=== PATIENT | female | born 1950 | race Caucasian/White ===

== ENCOUNTER → 2020-06-10 09:58 | Outpatient (CLI) | payer MEDICARE, BC, SELFPAY ==
--- NOTE | 2020-06-10 10:10 | MRI_ITS ---
STUDY: MRI BRAIN WITH AND WITHOUT CONTRAST (ATTENTION INTERNAL AUDITORY CANALS - I.A.C.''s) REASON FOR EXAM: Female, 69 years old. tinnitus, left hearing loss x 8 months TECHNIQUE: Standardized multiplanar fat and water weighted pulse sequences were obtained. IV dotarem 15ml was administered for the contrast portion of the examination. COMPARISON: None. FINDINGS: Normal bilateral temporal bones. Normal bilateral internal auditory canals. There is no demonstrated intracanalicular or cisternal vestibular schwannoma (acoustic neuroma). There is no enhancement of the bilateral VIIth or VIIIth cranial nerves. Normal bilateral cochlea, vestibules and semicircular canals. Normal size of the ventricles and extra-axial spaces for the patient''s age. Normal white matter tracts of the supratentorial brain. There is no evidence for recent intracranial ischemia or other cause of cytotoxic edema on diffusion weighted imaging (DWI). Normal bilateral basal ganglia. Normal thalami. Normal flow voids within the major intracranial circulation suggesting patency by spin echo criteria. Normal venous enhancement. There is no enhancing intra-axial or extra-axial abnormality. There is no extra-axial fluid accumulation. Normal sella turcica, pituitary gland, infundibular stalk, optic chiasm and hypothalamus. Normal tectal plate and pineal gland. Normal midbrain, kassandra and medulla. Normal cerebellum. Normal basal cisterns. No demonstrated orbital abnormality, within the constraints of a routine brain study. Normal visualized paranasal sinuses. Normal calvarium and skull base. Normal visualized soft tissue structures. Normal visualized upper cervical spine. MRI/Brain W/WO Contrast IMPRESSION: Normal unenhanced and enhanced MRI of the bilateral internal auditory canals (I.A.C''s). Electronically Signed: Meir Maldonado MD at 12:54 EST Tel , Service support ,
[2020-06-10 10:51] LABS: CREATININE FINGERSTICK 0.8 mg/dL (0.55-1.02); EGFR FINGERSTICK > 60.0000 mL/min (>60)
== END ==
PROVIDERS: PCP Family Medicine; Referring Provider Otolaryngology; Visit Provider Otolaryngology
DX: H93.12 Tinnitus, left ear (principal); H91.92 Unspecified hearing loss, left ear
CPT/HCPCS: 70553; A9575

== ENCOUNTER → 2020-09-14 12:52 | Outpatient (CLI) | payer MEDICARE, BC, SELFPAY ==
--- NOTE | 2020-09-14 13:06 | MRI_ITS ---
STUDY: MR MRCP WITHOUT CONTRAST REASON FOR EXAM: Female, 70 years old. DILATION OF COMMON BILE DUCT TECHNIQUE: Standard MRCP technique was utilized. 3-D postprocess images were created. COMPARISON: CT dated 04/14/11 FINDINGS: The study is significantly limited by patient motion. Gall Bladder: Status post cholecystectomy. Cystic duct: Normal caliber. No ductal stones identified. Intrahepatic ducts: Normal caliber. No ductal stones identified. Common hepatic duct: Normal caliber. No ductal stones identified. Common bile duct: Dilated, measuring up to 1 cm. No ductal stones are identified. Pancreatic duct: Normal caliber. No ductal stones identified. The liver is nodular in contour, suggesting cirrhosis. MRI/MRCP Abdomen without Contrast IMPRESSION: Study significantly limited by patient motion. Status post cholecystectomy. Dilated common bile duct, measuring up to 1 cm. No ductal stones identified. This can be within normal limits following a cholecystectomy. Nodular liver, suggesting cirrhosis. Electronically Signed: Shyam Patel MD at 16:33 EDT Tel , Service support ,
== END ==
PROVIDERS: PCP Family Medicine; Referring Provider Family Medicine; Visit Provider Family Medicine
DX: K83.8 Other specified diseases of biliary tract (principal)
CPT/HCPCS: 74181

== ENCOUNTER → 2020-09-29 16:18 | Outpatient (CLI) | payer MEDICARE, BC, SELFPAY ==
[2014-03-31 11:05] VITALS: BMI 29.4
[2020-09-29 17:45] LABS: International Normalized Ratio 1.4; Prothrombin Time (Protime)PT. 16.2 SECONDS (11.7-14.9)
[2020-10-01 16:28] LABS: ANTINUCLEAR ANTIBODIES DIRECT Negative (Negative)
[2020-10-01 20:08] LABS: HEPATITIS B SURFACE AG Negative (Negative); Hepatitis B Core AB IgM Negative (Negative); Hepatitis B Core Ab Total Negative (Negative); Hepatitis Be Ab Negative (Negative); Hepatitis Be Ag Negative (Negative); Hepatitis C Ab 0.3 s/co ratio (0.0-0.9)
[2020-10-01 22:40] LABS: AFP, Tumor Marker 3.7 ng/mL (0.0-8.3); Anti-Smooth Muscle ABS 21 Units (0-19); Ceruloplasmin 27.5 mg/dL (19.0-39.0); Hep B Surface Antibodies Non Reactive (.)
== END ==
PROVIDERS: PCP Family Medicine; Referring Provider Internal Medicine Gastroenterology; Visit Provider Internal Medicine Gastroenterology
DX: K74.60 Unspecified cirrhosis of liver (principal)
CPT/HCPCS: 36415; 82105; 82390; 83516; 85610; 85730; 86038; 86704; 86705; 86706; 86707; 86803; 87340; 87350

== ENCOUNTER → 2020-10-19 12:59 | Outpatient (CLI) | payer MEDICARE, BC, SELFPAY | PROVIDERS: PCP Family Medicine; Referring Provider Internal Medicine Gastroenterology; Visit Provider Internal Medicine Gastroenterology | DX: Z11.59 Encounter for screening for other viral diseases (principal) | CPT/HCPCS: 87635; C9803; U0005; U0003 ==

== ENCOUNTER → 2020-12-29 14:23 | Outpatient (CLI) | payer MEDICARE, BC, SELFPAY ==
[2020-12-29 18:06] LABS: International Normalized Ratio 1.4; Prothrombin Time (Protime)PT. 16.3 SECONDS (11.7-14.9)
[2020-12-29 18:13] LABS: ALB/GLOB Ratio 0.7 RATIO (0.9-2.4); AST(SGOT) 43 U/L (15-37); Alanine Aminotransfer ALT/SGPT 34 U/L (13-56); Albumin, Serum 3.1 g/dL (3.2-5.0); Alkaline Phosphatase 97 U/L (45-117); Anion Gap 6 (5-15); BUN 21 mg/dL (7-18); BUN/Creat Ratio 27.9 RATIO (10-20); Calcium,Total 9.5 mg/dL (8.5-10.1); Chloride 108 mmol/L (98-107); Creatinine, Serum 0.75 mg/dL (0.55-1.02); EST Glomerular Filtration Rate 81 mL/min (>60); Est Glom Filt Rate - Afr Amer 98 mL/min (>60); Globulin 4.6 g/dL (2.2-4.2); Glucose 147 mg/dL (74-106); Potassium 3.8 mmol/L (3.5-5.1); Protein, Total 7.7 g/dL (6.4-8.2); Sodium Level 138 mmol/L (136-145)
[2020-12-31 17:54] LABS: AFP, Tumor Marker 3.4 ng/mL (0.0-8.3); Anti-Smooth Muscle ABS 21 Units (0-19)
== END ==
PROVIDERS: PCP Family Medicine; Referring Provider Internal Medicine Gastroenterology; Visit Provider Internal Medicine Gastroenterology
DX: K74.60 Unspecified cirrhosis of liver (principal); K75.9 Inflammatory liver disease, unspecified
CPT/HCPCS: 36415; 80053; 82105; 83516; 85610

== ENCOUNTER → 2021-04-13 14:18 | Outpatient (CLI) | payer MEDICARE, BC, SELFPAY ==
[2021-04-13 18:07] LABS: ALB/GLOB Ratio 0.6 RATIO (0.9-2.4); AST(SGOT) 45 U/L (15-37); Alanine Aminotransfer ALT/SGPT 36 U/L (13-56); Alkaline Phosphatase 84 U/L (45-117); Anion Gap 8 (5-15); BUN 18 mg/dL (7-18); BUN/Creat Ratio 21.9 RATIO (10-20); Chloride 105 mmol/L (98-107); Creatinine, Serum 0.82 mg/dL (0.55-1.02); EST Glomerular Filtration Rate 73 mL/min (>60); Est Glom Filt Rate - Afr Amer 89 mL/min (>60); Globulin 4.7 g/dL (2.2-4.2); Glucose 141 mg/dL (74-106); Potassium 4.5 mmol/L (3.5-5.1); Protein, Total 7.7 g/dL (6.4-8.2); Sodium Level 136 mmol/L (136-145)
[2021-04-15 15:08] LABS: Albumin 3.2 g/dL (2.9-4.4); Alpha-1-Globulins 0.2 g/dL (0.0-0.4); Alpha-2-Globulins 0.6 g/dL (0.4-1.0); Gamma Globulin 1.8 g/dL (0.4-1.8); Immunoglobulin A 783 mg/dL (87-352); Immunoglobulin G 1738 mg/dL (586-1602); Immunoglobulin M 135 mg/dL (26-217); PROEL- TOTAL PROTEIN 7.1 g/dL (6.0-8.5)
[2021-04-16 09:47] LABS: Anti-Mitochondrial AB <20.0 Units (0.0-20.0)
[2021-04-16 20:30] LABS: Anti-Smooth Muscle ABS 24 Units (0-19)
== END ==
PROVIDERS: PCP Family Medicine; Referring Provider Internal Medicine Gastroenterology; Visit Provider Internal Medicine Gastroenterology
DX: K74.60 Unspecified cirrhosis of liver (principal)
CPT/HCPCS: 36415; 80053; 82784; 83516; 84165; 86334

== ENCOUNTER 2021-05-24 08:39 | Outpatient (CLI) | payer MEDICARE, BC, SELFPAY ==
[2021-05-24] VITALS (12 sets, daily range): BP systolic 99–138; BP diastolic 44–80; PULSE 62–70; RESP 12–20; TEMP 36.9; O2SAT 96–100; BMI 27.4
--- NOTE | 2021-05-24 | LIVB_PTH ---
PATIENT: KARL CONCEPCION LOC: CT U#:[id number] AGE/SX: 70/F ROOM: RE05/24/[address]: Dr. Ciro Anguiano MD : 1950 BED: DIS: 05/24/2021 SPEC #: [id number] RECD: 05/24/21 10:32 STATUS: MINA RESulema #: [id number] THONY: 05/24/21 00:[address]: Ciro Anguiano DEPT: SURGICAL PATHOLOGY RECD BY: Beba Cotto ENTERED: 05/24/21 10:54 SP TYPE: LIVER BX OTHR DR: Dr. Michael Lawson MD Tissues: Liver, NOS Procedures: PAS with Diastase (control) Trichrome (control) Special Stain Group II PAS Stain (control) Surgery Specimen Level V Retic (control) Iron Stain (control) HEADER OPERATION: Liver biopsy PRE-OP DIAGNOSIS: Cirrhosis TISSUE SUBMITTED: Liver 18-guage MICROSCOPIC DIAGNOSIS Liver, core biopsy: Consistent with cirrhosis. See comment. AM:konstantin 05/25/2021 COMMENT Trichrome stain with matched control reveals broad-band fibrosis consistent with cirrhosis. Iron stain with matched control does not reveal increasing intraparenchymal iron deposition. Reticulin stain with matched control reveals a normal hepatic architecture with increased uptake in areas of fibrosis. PAS with and without diastase does not reveal accumulation of abnormal proteins. There is severe (grade 4) limiting plate necrosis and bridging necrosis. The inflammatory process consists primarily of lymphocytes. The findings are consistent with bridging necrosis compounded on cirrhosis. Clinical correlation is suggested. MICROSCOPIC DESCRIPTION Slides are reviewed. GROSS DESCRIPTION Received in fixative is one container labeled with the patient's name and designated liver. The specimen consists of three elongated fragments of de la fuente soft tissue each measuring 2 cm in length and 0.1 cm in diameter. The specimen is totally submitted in one cassette. / TEVIN:konstantin 05/24/2021 TC:3 CPT: 06133, 17436 x5 ADDENDUM ADDENDUM ADDENDUM ADDENDUM ADDENDUM ADDENDUM ADDENDUM ADDENDUM ADDENDUM ADDENDUM ADDENDUM ADDENDUM 03/03/2022 10:24 ADDENDUM 03/03/2022 10:24 ADDENDUM 03/03/2022 10:24 ADDENDUM 03/03/2022 10:24 ADDENDUM 03/03/2022 10:24 This addendum is added to incorporate an outside pathology consultation report. The case was examined at [facility] (#[id number]) and the following diagnosis was rendered. Liver, core biopsy: Liver parenchyma with centrilobular pericellular fibrosis, bridging fibrosis and early cirrhosis. Centrilobular sinusoidal dilatation. Please see complete above mentioned consultation report in EMR
--- NOTE | 2021-05-24 08:53 | CT_ITS ---
PROCEDURE: CT DIRECTED CORE LIVER BIOPSY INDICATION: Female, 70 years old. CIRRHOSIS PHYSICIAN: Dr. ELLY Otoole CONSENT: Written informed consent was obtained having explained the risks, benefits and alternatives in detail with the patient who accepted the risks and agreed to proceed. Laboratory review and clinical assessment was performed. CONSCIOUS SEDATION PROTOCOL: The Drugs used were: 2 mg Versed, IV., and 50 mcg Fentanyl, IV. The sedation time was: 17 minutes. Conscious sedation was started at 10:05 AM and terminated at 10:22 AM. The conscious sedation protocol was independently monitored. RADIATION DOSAGE (If Supplied By Facility): CTDIvol = ( 18 ) mGy, DLP = ( 809.65 ) mGycm Individualized dose optimization techniques were used for this CT. TECHNIQUE: Using CT image guidance with image documentation, a suitable location in the left lobe of the liver was identified. Using an anterior approach, puncture of the liver was uneventful with an 18-gauge core needle system. 3 18-gauge core samples were obtained, and submitted in formalin to the pathologist for further assessment. Followup CT scan revealed no distinct sequelae. CT/Biopsy/Inj or Needle Placement IMPRESSION: 1. CT directed core needle biopsy of the liver, using CT image guidance with image documentation as described. 2. Conscious Sedation protocol utilized with independent monitoring. Electronically Signed: Sly Kennedy MD at 10:48 EST ,
[2021-05-24 08:57] LABS: Platelet Count 119 K/mm3 (150-450)
[2021-05-24 09:08] LABS: Partial Thromboplast Time 34.1 Seconds (24.1-36.2)
[2021-05-24 09:12] LABS: International Normalized Ratio 1.4; Prothrombin Time (Protime)PT. 16.7 SECONDS (11.7-14.9)
[2021-05-24] MEDS: Midazolam 2 MG/2 ML Syringe IV (10:05)
[2021-05-24] MEDS: fentaNYL 100 MCG/2 ML Ampul IV (10:07)
[2021-05-24] MEDS: Lidocaine 2% (20 ml mdv) 20 ML Vial INFILT (10:17)
== END 2021-05-24 23:59 | disposition home or self-care (01) ==
PROVIDERS: PCP Family Medicine; Referring Provider Internal Medicine Gastroenterology; Visit Provider Internal Medicine Gastroenterology
DX: K74.60 Unspecified cirrhosis of liver (principal)
CPT/HCPCS: 47000; 36415; 77012; 85049; 85610; 85730; 88307; 88313; 99156; J7040; A4216

== ENCOUNTER → 2021-09-06 | Outpatient (CLI) | payer MEDICARE, BC, SELFPAY ==
[2021-09-06 17:45] LABS: Hematocrit 34.7 % (37-47); Hemoglobin 11.9 g/dL (12.0-15.0); Mean Corp Hgb Conc 34.3 g/dL (32-36); Mean Corpuscular Hgb 34.5 pg (27.0-32.0); Mean Corpuscular Volume 100.6 fL (81-99); Mean Platelet Vol. 10.3 fl (6.2-12.0); Platelet Count 108 K/mm3 (150-450); RBC Distribution Width CV 15.6 % (11.6-14.6); RBC Distribution Width SD 57.4 fl (35.1-43.9); Red Blood Count 3.45 M/mm3 (4.2-5.4); White Blood Count 4.9 K/mm3 (4.4-11.0)
[2021-09-06 18:00] LABS: BUN 17 mg/dL (7-18); Creatinine, Serum 0.72 mg/dL (0.55-1.02); EST Glomerular Filtration Rate 86 mL/min (>60); Glucose 274 mg/dL (74-106)
[2021-09-06 18:01] LABS: ALB/GLOB Ratio 0.6 RATIO (0.9-2.4); AST(SGOT) 43 U/L (15-37); Alanine Aminotransfer ALT/SGPT 32 U/L (13-56); Albumin, Serum 2.7 g/dL (3.2-5.0); Alkaline Phosphatase 81 U/L (45-117); Anion Gap 5 (5-15); BUN/Creat Ratio 23.8 RATIO (10-20); Calcium,Total 8.3 mg/dL (8.5-10.1); Chloride 107 mmol/L (98-107); Est Glom Filt Rate - Afr Amer 104 mL/min (>60); Ferritin 34 ng/mL (8-252); Globulin 4.4 g/dL (2.2-4.2); Iron 108 ug/dL (50-170); Potassium 4.4 mmol/L (3.5-5.1); Protein, Total 7.1 g/dL (6.4-8.2); Sodium Level 136 mmol/L (136-145)
== END | disposition home or self-care (01) ==
LOC: MTLAB 14:42
PROVIDERS: PCP Family Medicine; Referring Provider Internal Medicine Gastroenterology; Visit Provider Internal Medicine Gastroenterology
DX: D50.9 Iron deficiency anemia, unspecified (principal); K74.60 Unspecified cirrhosis of liver
CPT/HCPCS: 36415; 80053; 82728; 83540; 85027

== ENCOUNTER → 2021-09-11 | Outpatient (CLI) | payer MEDICARE, BC, SELFPAY ==
--- NOTE | 2021-09-11 07:28 | US_ITS ---
STUDY: ABDOMINAL ULTRASOUND - RIGHT UPPER QUADRANT REASON FOR VISIT: Female, 71 years old elevated LFTs TECHNIQUE: Ultrasound evaluation of the right upper quadrant was performed with real-time and static ng-scale imaging. TECHNICAL QUALITY: Adequate. COMPARISON: None. FINDINGS: Liver: The liver measures 13 cm. There is increased echogenicity consistent with fatty infiltration. The bile ducts are within normal limits. There is hepatic color flow. The direction of portal flow is hepatopetal. There is no demonstrated mass lesion. Gallbladder: The patient is status post cholecystectomy. Common Bile Duct (C.B.D.): The common bile duct measures 8.8 mm. Pancreas: Normal size of the head, body and tail of the pancreas. There is increased echogenicity of the pancreas. 3 separate anechoic cysts noted in the pancreas. Largest is in the tail measuring 2.4 cm. There is also a 1.8 cm cyst in the body and 0.9 cm cyst in the head. Right Kidney: Normal size of the right kidney. The right kidney measures 10.8 x 6.1 x 4.4 cm. Normal renal cortex. The right cortex measures 1.3 cm. There is no demonstrated renal mass or cyst. There is nonspecific prominence of the right renal pelvis. US/Abdomen Limited IMPRESSION: Diffuse fatty infiltration of the liver, no discrete lesion Likely pancreatic cysts, short-term follow-up ultrasound or cross-sectional imaging recommended in 3-6 months Electronically Signed: Bob Justin MD at 9:00 EDT ,
== END | disposition home or self-care (01) ==
LOC: US 07:26
PROVIDERS: PCP Family Medicine; Referring Provider Internal Medicine Gastroenterology; Visit Provider Internal Medicine Gastroenterology
DX: K74.60 Unspecified cirrhosis of liver (principal); K76.0 Fatty (change of) liver, not elsewhere classified
CPT/HCPCS: 76705

== ENCOUNTER 2021-11-01 16:27 | Emergency (ER) | payer MEDICARE, BC, SELFPAY ==
[2021-11-01 16:29] VITALS: BP 153/77; PULSE 82; RESP 16; TEMP 36.7; O2SAT 97; BMI 27.4
--- NOTE | 2021-11-01 17:02 | EDS_ITS ---
HPI History of Present Illness Chief Complaint: Upper Extremity Injury Narrative Narrative: 71-year-old female presenting with left pinky pain after she got smashed in a log splitter. She has a superficial abrasion over the left pinky. She has pain with range of motion. No numbness or tingling. She states it is swollen. She did go through her pain prior to arrival. [facility] PFS Medical History Anemia Carpal tunnel syndrome Cirrhosis Home Medications pantoprazole 20 mg tablet,delayed release 40 mg PO DAILY 03/21/14 [History Last Taken 03/31/14 06:00] carvedilol 3.125 mg tablet 3.125 mg PO BID 05/24/21 [History Last Taken Unknown] spironolactone 100 mg tablet 100 mg PO DAILY 05/24/21 [History Last Taken Unknown] hydrocodone-acetaminophen 5-325mg 5mg-325mg 1 tab PO Q6H PRN pain 3 days #12 tabs 11/01/21 [Rx Last Taken Unknown] Allergy/AdvReac Type Severity Reaction Status Date / Time No Known Allergies Allergy Verified 05/24/21 09:31 Surgical History H/O thyroidectomy H/O: hysterectomy History of cholecystectomy History of hip replacement Social History Smoking Status: Never smoker ROS ROS ED Constitutional Constitutional ED: Denies chills or fever(s) Eyes Eyes: Denies change in vision or diplopia Cardiovascular Cardiovascular: Denies chest pain or palpitations Respiratory/Chest Respiratory/Chest: Denies cough or dyspnea Gastrointestinal Gastrointestinal: Denies abdominal pain or constipation Genitourinary Genitourinary ED: Denies dysuria or hematuria Musculoskeletal Musculoskeletal: Reports other Details: Left pinky pain ; Denies back pain Integumentary Reports Abrasions Neurologic Neurologic: Denies headache(s) or paresthesias Psychiatric Psychiatric: Denies anxiety or depression EXAM Physical Exam Const Vital Signs: 11/01/21 16:29 Temperature 98.1 F Temperature Source Temporal Pulse Rate 82 Respiratory Rate 16 Blood Pressure 153/77 H Blood Pressure Mean 102 Pulse Ox 97 Oxygen Delivery Method Room Air Positive well nourished General Appearance ED: NAD HEENT Reports moist mucous membranes Eyes PERRL Resp normal respiratory effort Cardio regular rate and regular rhythm Extremity Extremity Narrative: Tenderness palpation diffusely over the left pinky. Patient able to range her pinky although it is difficult with the swelling. There is no subungual hematoma. There is a superficial abrasion over the dorsal surface and bruising over the palmar surface of the left pinky. Neuro oriented x3 and CN's II-XII intact bilaterally Skin Skin Narrative: Bruising and swelling as described above MDM MDM MDM Narrative Medical decision making narrative: Patient presenting with left pinky pain after smashing it in a wood splitter. There is a superficial abrasion does not require suturing. There is bruising on the palmar surface of the left pinky. X-ray of the left pinky on my interpretation shows a small tuft fracture. Patient was treated with oxycodone in the ER for pain. She request pain medication for home. She was offered a finger splint but declines. He is counseled to keep her wound clean and dry and monitor for signs of infection. Ice and elevate as needed. Impression: 1. Tuft fracture left fifth digit 2. Superficial abrasion Lab Data Attestation: I reviewed the patient's lab results. Discharge Plan Triage Chief Complaint: Upper Extremity Injury ED Provider: Omero Nichols Dx/Rx/DC Orders Instructions: ED Fracture, Finger, Closed Prescriptions: New hydrocodone-acetaminophen 5-325 mg tablet 1 tab PO Q6H PRN (Reason: pain) 3 Days Qty: 12 0RF No Action pantoprazole 20 MG tablet 40 mg PO DAILY spironolactone 100 mg Tablet 100 mg PO DAILY carvedilol 3.125 mg Tablet 3.125 mg PO BID Primary Care Provider: Michael Lawson Referrals: Michael Lawson MD [Primary Care Provider] - Disposition Disposition: Home, Self Care Discharge Date/Time: 11/01/21 18:32
--- NOTE | 2021-11-01 17:10 | RAD_ITS ---
STUDY: LEFT HAND X-RAY SERIES OF 1712 HOURS ON 11/01/2021 REASON FOR EXAM: 71-year-old female with left hand pain. TECHNIQUE: 3 view(s) of the hand. COMPARISON: None. FINDINGS: Mild demineralization. No fractures or dislocations. There are mild erosive osteoarthritic changes of the base of the left first metacarpal. There is moderate narrowing of the distal intercarpal-carpal joints. There is narrowing of the medial radial-carpal joint. There are minimal osteoarthritic changes of the distal interphalangeal joints. These findings are all compatible with osteoarthritis. There are no findings of rheumatoid arthritis. Soft tissues are normal. RAD/Hand Min 3 Views IMPRESSION: 1. No fractures or dislocations. 2. Mild erosive osteoarthritic changes of the base of the left first metacarpal. 3. Moderate narrowing of the distal metacarpal-carpal joints. 4. Narrowing of the medial radial-carpal joint. 5. Minimal osteoarthritic changes of the distal interphalangeal joints. 6. The above findings are compatible with osteoarthritis. There are no findings of rheumatoid arthritis. 7. Normal soft tissues. Electronically Signed: Denys Gaspar MD at 17:57 EDT ,
[2021-11-01] MEDS: oxyCODONE 5 MG Tablet PO (17:17)
== END 2021-11-01 18:32 | disposition home or self-care (01) ==
PROVIDERS: Emergency Provider Student in an Organized Health Care Education/Training Program; PCP Family Medicine; Visit Provider Student in an Organized Health Care Education/Training Program
DX: S62.607A Fracture of unspecified phalanx of left little finger, initial encounter for closed fracture (principal); X58.XXXA Exposure to other specified factors, initial encounter
CPT/HCPCS: 73130; 99283

== ENCOUNTER 2021-11-29 09:28 | Inpatient (IN) | payer MEDICARE, BC, SELFPAY ==
[2021-11-29] VITALS (9 sets, daily range): BP systolic 123–167; BP diastolic 71–89; PULSE 71–81; RESP 14–18; TEMP 36.3–36.9; O2SAT 95–100; BMI 24.7; BMI 24.5
[2021-11-29 10:15] LABS: Absolute Lymphocyte Count 1.54 X10^3/uL (0.83-4.51); Absolute Neutrophil Count 3.8 X10^3/uL (2.0-7.7); Basophil# 0.03 X10^3/uL; Basophil% 0.5 % (0-1); Eosinophil# 0.12 X10^3/uL; Eosinophils% 1.9 % (0-5); Hematocrit 38.4 % (37-47); Hemoglobin 13.4 g/dL (12.0-15.0); Lymphocyte # 1.54 X10^3/ul (0.83-4.51); Lymphocyte % 23.9 % (19-41); Mean Corp Hgb Conc 34.9 g/dL (32-36); Mean Corpuscular Hgb 34.1 pg (27.0-32.0); Mean Corpuscular Volume 97.7 fL (81-99); Mean Platelet Vol. 9.9 fl (6.2-12.0); Monocyte# 0.88 X10^3/uL; Monocyte% 13.7 % (0-10); NRBC Flagged by Analyzer 0 % (0-5); Neutrophil # 3.84 X10^3/uL (2.7-7.7); Neutrophil % 59.5 % (47-70); Platelet Count 104 K/mm3 (150-450); RBC Distribution Width CV 14.1 % (11.6-14.6); RBC Distribution Width SD 51.2 fl (35.1-43.9); Red Blood Count 3.93 M/mm3 (4.2-5.4); White Blood Count 6.4 K/mm3 (4.4-11.0)
[2021-11-29 10:31] LABS: AST(SGOT) 41 U/L (15-37); Alanine Aminotransfer ALT/SGPT 43 U/L (13-56); Albumin, Serum 2.7 g/dL (3.2-5.0); Alkaline Phosphatase 97 U/L (45-117); Anion Gap 8 (5-15); BUN 17 mg/dL (7-18); BUN/Creat Ratio 21.4 RATIO (10-20); Bilirubin, Direct 1.29 mg/dL (0.00-0.30); Calcium,Total 8.8 mg/dL (8.5-10.1); Chloride 105 mmol/L (98-107); EST Glomerular Filtration Rate 76 mL/min (>60); Est Glom Filt Rate - Afr Amer 92 mL/min (>60); Globulin 4.4 g/dL (2.2-4.2); Glucose 401 mg/dL (74-106); Potassium 4.5 mmol/L (3.5-5.1); Protein, Total 7.1 g/dL (6.4-8.2); Sodium Level 132 mmol/L (136-145); Troponin-I HS 6 pg/mL (3.0-54.0)
[2021-11-29 10:49] LABS: Mucous, Urine 0 SEEN /hpf (<or=2+)
--- NOTE | 2021-11-29 10:50 | HP.PCM.HOS_ITS ---
HPI - General General Date of Admission: 11/29/21 Date of Service: 11/29/21 Chief Complaint: weakness HPI Narrative KARL CONCEPCION, is a 71 F with a PMh as outlined who presents via the ED on 11/29/2021 with a complaint of weakness and confusion. She just got back from [place], and has a known history of liver disease; follows with Dr Ellsworth. She has been feeling quite weak and lethargic for 3 days prior to admission. She denies any fever, chills, cough, chest pain, palpitations, dizziness, nausea or vomiting and denies any urinary involvement. Review of systems is otherwise negative. Vitals were BP of 167/89, DE of 79, RR of 17 and temp of 98.3F. She was saturating at 98% on room air. CBC showed wbc f 6.4, with Hb of 13.[address] atelets of 104. Chemistry showed sdium of 132, potassium of 4.5 and bicarb of 19. Cr was 0.8 and total bilirubin was 2.4, with direct bilirubin of 1.29. Ammonia level was 169. She has been admitted to be managed for acute hepatic encephalopathy in a patient with cirrhosis. [facility] Medical History Anemia Carpal tunnel syndrome Cirrhosis Home Medications pantoprazole 20 mg tablet,delayed release 40 mg PO DAILY Check with primary doctor 03/21/14 [History Last Taken 03/31/14 06:00] carvedilol 3.125 mg tablet 3.125 mg PO BID Check with primary doctor 05/24/21 [History Last Taken Unknown] spironolactone 100 mg tablet 100 mg PO DAILY Check with primary doctor 05/24/21 [History Last Taken Unknown] hydrocodone-acetaminophen 5-325mg 5mg-325mg 1 tab PO Q6H PRN pain 3 days #12 tabs 11/01/21 [Rx Last Taken Unknown] Allergy/AdvReac Type Severity Reaction Status Date / Time No Known Allergies Allergy Verified 11/29/21 09:29 Surgical History H/O thyroidectomy H/O: hysterectomy History of cholecystectomy History of hip replacement Social History Smoking Status: Never smoker ROS Constitutional Constitutional: Reports fatigue, malaise and weakness; Denies anorexia, change in weight, chills or fever(s) Eyes Eyes: Denies change in vision ENT HEENT: Denies dysphagia, headache(s), sinus pressure or sore throat Cardiovascular Cardiovascular: Denies chest pain, dyspnea on exertion, edema, orthopnea, palpitations, rapid heart rate or syncope Respiratory/Chest Respiratory/Chest: Denies cough, dyspnea, shortness of breath at rest or shortness of breath with exertion Gastrointestinal Gastrointestinal: Denies abdominal pain, constipation, diarrhea, dyspepsia, daisha tochezia, nausea or vomiting Genitourinary Genitourinary: Denies burning urination or dysuria Musculoskeletal Musculoskeletal: Denies arthralgias Neurologic Neurologic: Reports confusion; Denies dizziness, focal weakness, headache(s), numbness, seizures, syncope or tingling Psychiatric Psychiatric: Denies anxiety or depression Hematologic/Lymphatic Hematologic/Lymphatic: Denies anemia Vital Signs Vital Signs Vital Signs: 11/29/21 09:30 11/29/21 10:24 Temperature 98.3 F Temperature Source Temporal Pulse Rate 79 Respiratory Rate 17 Respiratory Effort Normal Respiratory Pattern Normal Blood Pressure 167/89 H Blood Pressure Mean 115 Pulse Ox 98 Oxygen Delivery Method Room Air Weight Weight: 139 lb 5.314 oz Body Mass Index (BMI) 24.7 Physical Exam Const alert, oriented x3 and no apparent distress Orientation / Consciousness: lethargic HEENT head/scalp atraumatic, hearing grossly normal bilaterally and moist oral mucous membranes Mouth: oral and palatal mucosa normal Eyes PERRL, EOMs intact bilaterally and conjunctivae normal Neck no lymphadenopathy, supple and no JVD Resp normal respiratory effort, no retractions, no use of accessory muscles and clear to auscultation bilaterally Cardio regular rate, regular rhythm, S1 normal heart sound, S2 normal heart sound and no murmurs GI normal to inspection, nondistended, normoactive bowel sounds, soft to palpation, non-tender and non-distended Extremity normal to inspection, full ROM and no clubbing, cyanosis or edema Neuro oriented x3, CN's II-XII intact bilaterally, moves all extremities and no focal motor deficits Neuro Narrative: asterixis positive Sensorium / Orientation: awake and alert Motor Exam: strength 5/5 throughout Results Lab / Micro Data Result Diagrams: 11/30/21 06:56 11/30/21 06:56 Labs: Laboratory Results - last 24 hr 11/29/21 10:03: WBC 6.4, RBC 3.93 L, Hgb 13.4, Hct 38.4, MCV 97.7, MCH 34.1 H, MCHC 34.9, RDW Std Deviation 51.2 H, RDW Coeff of Kwesi 14.1, Plt Count 104 L, MPV 9.9, Immature Gran % (Auto) 0.500, Neut % (Auto) 59.5, Lymph % (Auto) 23.9, Winston % (Auto) 13.7 H, Eos % (Auto) 1.9, Baso % (Auto) 0.5, Absolute Neuts (auto) 3.8, Absolute Lymphs (auto) 1.54, Nucleated RBC % 0 11/29/21 10:03: Sodium 132 L, Potassium 4.5, Chloride 105, Carbon Dioxide 19.0 L , Anion Gap 8, BUN 17, Creatinine 0.80, Estim Creat Clear Calc 54.90, Est GFR (MDRD) Af Amer 92, Est GFR (MDRD) Non-Af 76, BUN/Creatinine Ratio 21.4 H, Glucose 401 H, Calcium 8.8, Magnesium 2.0, Total Bilirubin 2.40 H, Direct Bilirubin 1.29 H, AST 41 H, ALT 43, Alkaline Phosphatase 97, Troponin I High Sens 6, Total Protein 7.1, Albumin 2.7 L, Globulin 4.4 H 11/29/21 10:03: Ammonia 169.0 H Assessment & Plan Assessment/Plan (1) Hepatic encephalopathy: PLAN: Plan #Acute hepatic encephalopathy in a patient with cirrhosis * Admit to PCU * Ammonia level is 169. Bilirubin is 2.4 which is around her previous levels. * Started on lactulose and titrate until 2-3 loose stools daily. * PT OT consult. Fall precautions. * #History of cirrhosis: * On spironolactone. Unclear about etiology of cirrhosis. * INR is 1.4. #Hypertension: Carvedilol. Also on spironolactone. #DVT prophylaxis: Lovenox CODE STATUS: Full code * Patient counseled extensively about different types of CODE STATUS including full code, DNR CCA and DNR CCA. Patient elects to be full code. * Total [id number] time 17 minutes. Charges/Coding Visit Charges Inpatient E&M: 30783 Init Hosp L3 Procedures Hospitalists Procedures: 47689 Advncd Care Plan 30 Min
[2021-11-29 10:51] LABS: Color, Urine Yellow (Yellow); Glucose, Dipstick 1000 mg/dl (Normal); Ketone-Dipstick 5 mg/dl (Negative); Leukocyte Esterase-Dipstick 25 /ul (Negative); Nitrite-Dipstick Negative (Negative); Occult Blood-Urine 50 /ul (Negative); Protein-Dipstick Negative (Negative); Urine Bilirubin Dipstick Negative (Negative); Urine Clarity Sl. Cloudy (Clear); Urine Urobilinogen 8 mg/dl (Normal)
--- NOTE | 2021-11-29 10:52 | NURSING ---
DR GARCÍA MCDONALD
--- NOTE | 2021-11-29 10:55 | NURSING ---
PCU [facility]
[2021-11-29 10:57] LABS: Bacteria 3+ /hpf (None Seen); Red Blood Cells-Urine 0-5 SEEN /hpf (0-5); Squamous Epithelial Cells - UA 0-5 SEEN /hpf (5-10); White Blood Cells 0-5 SEEN /hpf (0-5)
[2021-11-29] MEDS: 0.9% Normal Saline 1,000 ML 150 ML IV ×2 (10:57→21:15)
--- NOTE | 2021-11-29 11:13 | EDS_ITS ---
HPI History of Present Illness Chief Complaint: Weakness Informant: patient Narrative Narrative: Patient is a 71-year-old female with history of cirrhosis of the liver (unknown cause, presenting with generalized weakness and tingling in her fingers. Patient states she is just been feeling off and weak for the past 3 days and had tingling in her hands. She was recently in [place]. She is now needing assistance with just walking or getting dressed. She is having a hard time eating. Denies any falls or head injury. Does follow with Dr. Anguiano for her liver. Denies any fever or chills. Denies any sick contacts. Denies any chest pain, shortness of breath, GI or symptoms. No other complaints at this time. [facility] Medical History Anemia Carpal tunnel syndrome Cirrhosis Home Medications pantoprazole 20 mg tablet,delayed release 40 mg PO DAILY 03/21/14 [History Last Taken 03/31/14 06:00] carvedilol 3.125 mg tablet 3.125 mg PO BID 05/24/21 [History Last Taken Unknown] spironolactone 100 mg tablet 100 mg PO DAILY 05/24/21 [History Last Taken Unknown] hydrocodone-acetaminophen 5-325mg 5mg-325mg 1 tab PO Q6H PRN pain 3 days #12 tabs 11/01/21 [Rx Last Taken Unknown] Allergy/AdvReac Type Severity Reaction Status Date / Time No Known Allergies Allergy Verified 11/29/21 09:29 Surgical History H/O thyroidectomy H/O: hysterectomy History of cholecystectomy History of hip replacement Social History Smoking Status: Never smoker ROS ROS ED Constitutional Constitutional ED: Reports other Details: Generalized weakness ; Denies chills or fever(s) Eyes Eyes: Denies change in vision or diplopia ENT ENT ED: Denies rhinorrhea or sore throat Cardiovascular Cardiovascular: Denies chest pain Respiratory/Chest Respiratory/Chest: Denies cough Gastrointestinal Gastrointestinal: Denies abdominal pain, diarrhea, melena, nausea or vomiting Genitourinary Genitourinary ED: Denies dysuria, hematuria or urinary frequency Musculoskeletal Musculoskeletal: Denies arthralgias or myalgias Integumentary Denies rash Neurologic Neurologic: Reports paresthesias and weakness; Denies headache(s) Psychiatric Psychiatric: Denies anxiety Hematologic/Lymphatic Hematologic/Lymphatic: Denies easy bleeding or easy bruising EXAM Physical Exam Const Vital Signs: 11/29/21 09:30 11/29/21 10:24 Temperature 98.3 F Temperature Source Temporal Pulse Rate 79 Respiratory Rate 17 Respiratory Effort Normal Respiratory Pattern Normal Blood Pressure 167/89 H Blood Pressure Mean 115 Pulse Ox 98 Oxygen Delivery Method Room Air Positive well nourished and well developed General Appearance ED: well developed and NAD HEENT Reports dry mucous membranes Mouth ED: Yes dry mucous membranes Mouth: dry mucous membranes Eyes PERRL and EOMs intact bilaterally Eyes Narrative: No nystagmus General Eye ED: Negative for scleral icterus Neck supple and no JVD Neck Narrative: No meningeal signs Chest Wall inspection of chest normal and palpation of chest normal Resp normal respiratory effort and clear to auscultation bilaterally Cardio regular rate, regular rhythm and no murmurs GI normal to inspection, nondistended, normoactive bowel sounds, non-tender and non-distended Extremity normal to inspection Extremity Narrative: 2+ DP and radial pulses General Extremety ED: Negative for edema or tenderness General Extremity: Negative for edema Neuro oriented x3, CN's II-XII intact bilaterally and no sensory deficits noted Neuro Narrative: Asterixis on exam, normal [id number]. No focal weakness however patient is slow to follow commands Motor Exam: strength 5/5 throughout and general weakness Psych mental status grossly normal Skin no rashes or lesions noted and no wounds General Skin Exam: Negative for jaundice MDM MDM MDM Narrative Medical decision making narrative: Patient evaluated for generalized malaise and weakness. Exam is consistent with asterixis but otherwise benign. No signs of trauma. Work-up is remarkable for mildly elevated bilirubin of 2.4 and an elevated ammonia of 169. Suspect patient has hepatic encephalopathy which is what is causing her symptoms. Patient started on lactulose as well as IV fluids. Urinalysis is consistent with infection. No signs of trauma I do not think a CT head is indicated at this time. Will be admitted for further management. Patient and family agreeable this plan of care. Patient is hemodynamically stable. Lab Data Attestation: I reviewed the patient's lab results. Labs: Laboratory Results - last 24 hr 11/29/21 11/29/21 11/29/21 10:03 10:03 10:03 WBC 6.4 RBC 3.93 L Hgb 13.4 Hct 38.4 MCV 97.7 MCH 34.1 H MCHC 34.9 RDW Std Deviation 51.2 H RDW Coeff of Kwesi 14.1 Plt Count 104 L MPV 9.9 Immature Gran % (Auto) 0.500 Neut % (Auto) 59.5 Lymph % (Auto) 23.9 Scott % (Auto) 13.7 H Eos % (Auto) 1.9 Baso % (Auto) 0.5 Absolute Neuts (auto) 3.8 Absolute Lymphs (auto) 1.54 Nucleated RBC % 0 Sodium 132 L Potassium 4.5 Chloride 105 Carbon Dioxide 19.0 L Anion Gap 8 BUN 17 Creatinine 0.80 Estim Creat Clear Calc 54.90 Est GFR (MDRD) Af Amer 92 Est GFR (MDRD) Non-Af 76 BUN/Creatinine Ratio 21.4 H Glucose 401 H Calcium 8.8 Magnesium 2.0 Total Bilirubin 2.40 H Direct Bilirubin 1.29 H AST 41 H ALT 43 Alkaline Phosphatase 97 Ammonia 169.0 H Troponin I High Sens 6 Total Protein 7.1 Albumin 2.7 L Globulin 4.4 H Urine Color Urine Clarity Urine pH Ur Specific Line [place] Urine Protein Urine Glucose (UA) Urine Ketones Urine Occult Blood Urine Nitrite Urine Bilirubin Urine Urobilinogen Ur Leukocyte Esterase Urine RBC Urine WBC Ur Squamous Epith Cells Urine Bacteria Urine Mucus 11/29/21 10:40 WBC RBC Hgb Hct MCV MCH MCHC RDW Std Deviation RDW Coeff of Kwesi Plt Count MPV Immature Gran % (Auto) Neut % (Auto) Lymph % (Auto) Scott % (Auto) Eos % (Auto) Baso % (Auto) Absolute Neuts (auto) Absolute Lymphs (auto) Nucleated RBC % Sodium Potassium Chloride Carbon Dioxide Anion Gap BUN Creatinine Estim Creat Clear Calc Est GFR (MDRD) Af Amer Est GFR (MDRD) Non-Af BUN/Creatinine Ratio Glucose Calcium Magnesium Total Bilirubin Direct Bilirubin AST ALT Alkaline Phosphatase Ammonia Troponin I High Sens Total Protein Albumin Globulin Urine Color Yellow Urine Clarity Sl. Cloudy Urine pH 6.0 Ur Specific Line [place] 1.020 Urine Protein Negative Urine Glucose (UA) 1000 H Urine Ketones 5 H Urine Occult Blood 50 H Urine Nitrite Negative Urine Bilirubin Negative Urine Urobilinogen 8 H Ur Leukocyte Esterase 25 H Urine RBC 0-5 SEEN Urine WBC 0-5 SEEN Ur Squamous Epith Cells 0-5 SEEN Urine Bacteria 3+ Urine Mucus 0 SEEN Rhythm Strip Rhythm Strip: Sinus Rhythm Rate: 77 Ectopy: None EKG Initial EKG: Attestation: I personally reviewed and interpreted this EKG as follows: Interpretation: Sinus Rhythm Comments: Normal sinus rhythm at a rate of 77 Normal axis Normal intervals Normal ST segments Minimal voltage criteria for LVH Discharge Plan Triage Chief Complaint: Weakness ED Provider: Elli Winston Dx/Rx/DC Orders Clinical Impression: Hepatic encephalopathy, Generalized muscle weakness, Cirrhosis of liver, Hyperammonemia Primary Care Provider: Mcihael Lawson Disposition Disposition: Acute Care Hospital [facility]
[2021-11-29] MEDS: Lactulose 20 GM/30 ML UDC PO ×3 (11:17→21:59)
[2021-11-30] VITALS (10 sets, daily range): BP systolic 132–147; BP diastolic 70–79; PULSE 73–97; RESP 16–18; TEMP 36.6–37; O2SAT 96–99
[2021-11-30] MEDS: 0.9% Normal Saline 1,000 ML 150 ML IV (04:10)
[2021-11-30] MEDS: Lactulose 20 GM/30 ML UDC PO ×3 (04:11→21:25)
[2021-11-30 07:22] LABS: Absolute Lymphocyte Count 1.72 X10^3/uL (0.83-4.51); Absolute Neutrophil Count 3.9 X10^3/uL (2.0-7.7); Basophil# 0.04 X10^3/uL; Basophil% 0.6 % (0-1); Eosinophil# 0.17 X10^3/uL; Eosinophils% 2.5 % (0-5); Hematocrit 36.6 % (37-47); Hemoglobin 12.5 g/dL (12.0-15.0); Lymphocyte # 1.72 X10^3/ul (0.83-4.51); Lymphocyte % 25.4 % (19-41); Mean Corp Hgb Conc 34.2 g/dL (32-36); Mean Corpuscular Hgb 34.1 pg (27.0-32.0); Mean Corpuscular Volume 99.7 fL (81-99); Mean Platelet Vol. 9.9 fl (6.2-12.0); Monocyte# 0.95 X10^3/uL; NRBC Flagged by Analyzer 0 % (0-5); Neutrophil # 3.86 X10^3/uL (2.7-7.7); Neutrophil % 56.9 % (47-70); POSITIVE COUNT YES; Platelet Count 92 K/mm3 (150-450); RBC Distribution Width CV 14.1 % (11.6-14.6); RBC Distribution Width SD 51.8 fl (35.1-43.9); Red Blood Count 3.67 M/mm3 (4.2-5.4); White Blood Count 6.8 K/mm3 (4.4-11.0)
[2021-11-30 07:58] LABS: ALB/GLOB Ratio 0.6 RATIO (0.9-2.4); AST(SGOT) 37 U/L (15-37); Alanine Aminotransfer ALT/SGPT 43 U/L (13-56); Albumin, Serum 2.5 g/dL (3.2-5.0); Alkaline Phosphatase 74 U/L (45-117); Anion Gap 6 (5-15); BUN 14 mg/dL (7-18); BUN/Creat Ratio 20.6 RATIO (10-20); Calcium,Total 8.6 mg/dL (8.5-10.1); Chloride 105 mmol/L (98-107); Creatinine, Serum 0.68 mg/dL (0.55-1.02); EST Glomerular Filtration Rate 91 mL/min (>60); Est Glom Filt Rate - Afr Amer 110 mL/min (>60); Estimated Creatinine Clearance 43.92 ml/min; Globulin 4.1 g/dL (2.2-4.2); Glucose 289 mg/dL (74-106); Potassium 4.3 mmol/L (3.5-5.1); Protein, Total 6.6 g/dL (6.4-8.2); Sodium Level 133 mmol/L (136-145)
[2021-11-30 08:21] LABS: International Normalized Ratio 1.4; Prothrombin Time (Protime)PT. 16.9 SECONDS (11.7-14.9)
[2021-11-30] MEDS: Ceftriaxone 1 GM/50 ML BAG IV (09:19)
[2021-11-30] MEDS: Enoxaparin 40 MG/0.4 ML Syringe SC (09:23)
--- NOTE | 2021-11-30 11:16 | PN.HOSP_ITS ---
Subjective Subjective Patient seen and examined. She had no active complaints and felt much better. She denied any fever, chills, cough, chest pain, palpitations, dizziness, nausea or vomiting. She has started having bowel movements. Review of systems is otherwise negative. Objective Data Objective Data Vital Signs: Vital Signs Temp Pulse Resp BP Pulse Ox O2 Del Method 98.6 F 79 16 141/74 H 96 Room Air 11/30/21 04:00 11/30/21 06:54 11/30/21 04:00 11/30/21 04:00 11/30/21 07:36 11/30/21 07:36 Oxygen Delivery Method Room Air Weight: 138 lb 10.732 oz Body Mass Index (BMI) 24.5 Intake & Output: Intake and Output for Last 24 Hours 11/28/21 11/29/21 11/30/21 23:59 23:59 23:59 Intake Total 1000 / 1120 Balance 1000 / 1120 Medical Nutrition Assessment Dietitian: Malnutrition Criteria Met Start: 11/29/21 14:33 Freq: Status: Active Protocol: Document 11/29/21 14:33 AG (Rec: 11/29/21 14:33 AG [id number]) Nutrition Malnutrition Evidence of Malnutrition Exists Yes Malnutrition (severe): Acute Illness/Injury Evidenced By Suboptimal Energy Intake ( Severe),Weight Loss (Severe) Clinical Problem Acute Disease or Injury Related Malnutrition Etiology severe, acute malnutrition r/t inadequate energy intake Signs/Symptoms as evidenced by unintentional wt loss of 11.3#/7.5% wt loss x 1 week, estimated PO intake meeting <50% of estimated energy needs x 1 week Status Active Problem Recommendation Dietitian Recommendations/Changes continue cardiac diet; will add 120mL ensure enlive 4x/day w/ medpass given acute malnutrition. Lab / Micro Data Result Diagrams: 11/30/21 06:56 11/30/21 06:56 Labs: Laboratory Results - last 24 hr 11/30/21 06:56: WBC 6.8, RBC 3.67 L, Hgb 12.5, Hct 36.6 L, MCV 99.7 H, MCH 34.1 H, MCHC 34.2, RDW Std Deviation 51.8 H, RDW Coeff of Kwesi 14.1, Plt Count 92 L, MPV 9.9, Immature Gran % (Auto) 0.600, Neut % (Auto) 56.9, Lymph % (Auto) 25.4, [place] % (Auto) 14.0 H, Eos % (Auto) 2.5, Baso % (Auto) 0.6, Absolute Neuts (auto) 3.9, Absolute Lymphs (auto) 1.72, Nucleated RBC % 0 11/30/21 06:56: PT 16.9 H, INR 1.4 11/30/21 06:56: Sodium 133 L, Potassium 4.3, Chloride 105, Carbon Dioxide 22.0, Anion Gap 6, BUN 14, Creatinine 0.68, Estim Creat Clear Calc 43.92, Est GFR (MDRD) Af Amer 110, Est GFR (MDRD) Non-Af 91, BUN/Creatinine Ratio 20.6 H, Glucose 289 H, Calcium 8.6, Total Bilirubin 2.40 H, AST 37, ALT 43, Alkaline Phosphatase 74, Total Protein 6.6, Albumin 2.5 L, Globulin 4.1, Albumin/Globulin Ratio 0.6 L Rhythm Strip Rhythm Strip: Sinus Rhythm Rate: 77 Ectopy: None Physical Exam Const alert, oriented x3 and no apparent distress HEENT head/scalp atraumatic, hearing grossly normal bilaterally, moist oral mucous membranes and oropharynx normal Head and Scalp: normocephalic Mouth: oral and palatal mucosa normal Eyes PERRL, EOMs intact bilaterally and conjunctivae normal Neck no lymphadenopathy, supple and no JVD Resp normal respiratory effort, no retractions, no use of accessory muscles and clear to auscultation bilaterally Cardio regular rate, regular rhythm, S1 normal heart sound, S2 normal heart sound and no murmurs GI normal to inspection, nondistended, normoactive bowel sounds, soft to palpation, non-tender and non-distended Extremity normal to inspection, full ROM and no clubbing, cyanosis or edema Neuro oriented x3, CN's II-XII intact bilaterally, moves all extremities and no focal motor deficits Sensorium / Orientation: awake and alert Speech: speech normal Motor Exam: strength 5/5 throughout Psych affect normal Assessment & Plan Assessment/Plan (1) Hepatic encephalopathy: PLAN: Plan #Acute hepatic encephalopathy in a patient with cirrhosis * feels much better today. Alert and oriented x 3 * continue lactulose, to titrate till 2-3 loose stools daily. * PT/OT on board. Fall precautions. * #UTI: urinalysis showed 3+ bacteria. Start on IV ceftriaxone. Urine culture pending. #History of cirrhosis: * On spironolactone and carvedilol. Unclear about etiology of cirrhosis. #Hypertension: Carvedilol. Also on spironolactone. #DVT prophylaxis: Lovenox CODE STATUS: Full code * Charges/Coding Visit Charges Inpatient E&M: 85634 Subs Hosp L2
--- NOTE | 2021-11-30 11:35 | CASEMGMT ---
JEANNIE CARUSO assessment: Face to Face with patient for initial transition planning/care coordination assessment. JEANNIE CARUSO introduced self and role at [facility], pt voices understanding and consents to assessment. Pt is sitting up in chair in no distress on room air.? Pt is A/Ox4 and answers all questions appropriately. Pt's daughter is at bedside during assessment. Care providers, pharmacy,?and demographics verified. ? Presentation: Pt c/o increased weakness, bilat hand numbness and forgetfulness starting 3 days ago-states liver problems and worried about elev ammonia Admitting dx: Hepatic encephalopathy PCP: Renny Specialists: ROLANDO Ellsworth Preferred Pharmacy: [facility] Insurance: [employer] A/B, [employer] Prescription Benefit:?[employer] Living Will/HPOA: Pt's daughter would like pt to complete AD's during admission and pt is agreeable. Alon SW aware, voices understanding. LNOK: Catherine Bhandari, daughter; Gerhard Morales, sister Living Arrangements: Pt lives in 1.5 story home and states bath and bedroom on 2nd story but does have bed on 1st floor, if needed and states son does stay with her but is rarely home/able to help. Pt is independent with ADL's. Transportation: Pt drives self and states no transportation concerns. DME/HHC: Pt has the following DME: 4 prong cane, walker, [place] shower, grab bars, shower chair, and erp programmer. Pt/daughter state no need for any further DME. Pt states has had HHC in the past but has not been to SNF. Pt/daughter would like HHC at discharge and pt/daughter provided list of HHC providers including quality and resource use data and consistent with the pt's preferred geographic region, medical needs, and insurance network. Daughter would like to see if [facility] is able to take pt. Call to Ofelia at [facility] w/ referral. CM to follow. Pt states no concerns with going home at time of discharge. Pt is retired. Pt states does not smoke cigarettes or drink ETOH. Pt states no further concerns/needs. CM to follow for any further discharge planning/needs. Advised pt to ask for CM if any further questions/concerns/needs arise, voices understanding. Pt Goal: Home Plan: Home w/ HHC. [place] JEANNIE CARUSO
--- NOTE | 2021-11-30 14:39 | CASEMGMT ---
Call back from Ofelia at [facility] and she states they can accept pt and do SOC 12/03/21. Pt/daughter updated, voice understanding. Tereza DENNIS CM
--- NOTE | 2021-11-30 15:18 | NURSING ---
Patients family brought in top and bottom partials this shift.
--- NOTE | 2021-11-30 15:58 | CASEMGMT ---
SW met with patient. Introduced self and role at [facility]. Patient's sister's were present, but stepped out while SW worked with patient. Patient requested to complete a Healthcare Power of Programs Assistant and a Healthcare Living Will. Patient's daughter wanted to be on speaker phone so she could assist as needed. Patient called her daughter Catherine and put her on speaker phone. SW explained both documents to patient and Catherine. SW then assisted patient in completing documents. Copies were made and given to patient along with originals. SW also placed a copy of each in patient's chart. Zeina Eric MACHINERY ERECTOR LEIGH ANN
[2021-11-30] MEDS: Carvedilol 3.125 MG TABLET PO ×2 (16:31→21:25)
--- NOTE | 2021-11-30 16:48 | CHAPLAIN ---
Type of Pastoral Visit _x__ Initial Visit ___ Follow-up Visit ___ On-call Visit ___ General Patient Visit ___ Spiritual Assessment ___ Family Conference ___ Bereavement ___ Rapid Response ___ Code Blue ___ Other (describe below) Pastoral Care Referral From _x__ Patient ___ Family ___ Nurse ___ Physician ___ Schedule Clerk ___ Medical Appointment Scheduler ___ Other (describe below) Sacrament/Intervention _x__ Active listening ___ Anointing ___ Islam ___ Bereavement ___ Communion _x__ Lissette exploration ___ _x__ Life review _x__ Prayer ___ Reconciliation ___ Sacrament of Sick _x__ Supportive presence ___ Wedding ___ Other (describe below) Pastoral Comments patient requests prayer before and after conversation about her situation and needs; pt has concerns about family and who is making decisions about her care; pt admits to needing strength and courage; pt admits that she has hard time talking to family because I get upset and I cry, so I just don't want to talk; pt admits need for support and spiritual care and prayer; offer of ongoing support as desired
[2021-12-01] VITALS (7 sets, daily range): BP systolic 128–138; BP diastolic 70–76; PULSE 74–79; RESP 18; TEMP 36.7–36.9; O2SAT 94–97
[2021-12-01] MEDS: Lactulose 20 GM/30 ML UDC PO ×2 (05:40→13:40)
[2021-12-01 05:46] LABS: Absolute Lymphocyte Count 1.49 X10^3/uL (0.83-4.51); Absolute Neutrophil Count 4.1 X10^3/uL (2.0-7.7); Basophil# 0.04 X10^3/uL; Basophil% 0.6 % (0-1); Eosinophil# 0.19 X10^3/uL; Eosinophils% 2.8 % (0-5); Hematocrit 35.4 % (37-47); Hemoglobin 12.2 g/dL (12.0-15.0); Lymphocyte # 1.49 X10^3/ul (0.83-4.51); Lymphocyte % 22.3 % (19-41); Mean Corp Hgb Conc 34.5 g/dL (32-36); Mean Corpuscular Hgb 34.3 pg (27.0-32.0); Mean Corpuscular Volume 99.4 fL (81-99); Mean Platelet Vol. 10.2 fl (6.2-12.0); Monocyte# 0.87 X10^3/uL; NRBC Flagged by Analyzer 0 % (0-5); Neutrophil # 4.08 X10^3/uL (2.7-7.7); POSITIVE COUNT YES; Platelet Count 85 K/mm3 (150-450); RBC Distribution Width CV 13.8 % (11.6-14.6); RBC Distribution Width SD 50.6 fl (35.1-43.9); Red Blood Count 3.56 M/mm3 (4.2-5.4); White Blood Count 6.7 K/mm3 (4.4-11.0)
[2021-12-01 06:04] LABS: International Normalized Ratio 1.4; Prothrombin Time (Protime)PT. 16.9 SECONDS (11.7-14.9)
[2021-12-01 06:17] LABS: ALB/GLOB Ratio 0.6 RATIO (0.9-2.4); AST(SGOT) 34 U/L (15-37); Alanine Aminotransfer ALT/SGPT 41 U/L (13-56); Albumin, Serum 2.4 g/dL (3.2-5.0); Alkaline Phosphatase 82 U/L (45-117); Anion Gap 6 (5-15); BUN 16 mg/dL (7-18); BUN/Creat Ratio 24.3 RATIO (10-20); Calcium,Total 8.8 mg/dL (8.5-10.1); Chloride 102 mmol/L (98-107); Creatinine, Serum 0.66 mg/dL (0.55-1.02); EST Glomerular Filtration Rate 94 mL/min (>60); Est Glom Filt Rate - Afr Amer 114 mL/min (>60); Estimated Creatinine Clearance 43.92 ml/min; Globulin 3.8 g/dL (2.2-4.2); Glucose 362 mg/dL (74-106); Potassium 4.5 mmol/L (3.5-5.1); Protein, Total 6.2 g/dL (6.4-8.2); Sodium Level 131 mmol/L (136-145)
[2021-12-01] MEDS: Pantoprazole Sodium 40 MG Tablet PO (08:53)
[2021-12-01] MEDS: Spironolactone 50 MG Tablet 100 MG PO (08:53)
[2021-12-01] MEDS: Carvedilol 3.125 MG TABLET PO (08:53)
[2021-12-01] MEDS: Ceftriaxone 1 GM/50 ML BAG IV (08:55)
[2021-12-01] MEDS: 0.9% Saline Lock 10 ML Syringe IV (08:59)
--- NOTE | 2021-12-01 09:20 | CASEMGMT ---
ASHKAN provided patient with a list of counseling agencies per her request. Zeina Eric ANTIQUE DEALER LEIGH ANN
--- NOTE | 2021-12-01 10:18 | CASEMGMT ---
Per Dr. Richardson, pt to d/c today. Ofelia at [facility] notified of pt d/c and states they will now be able to do SOC 12/02/21, if pt agreeable. Pt/family updated, voices understanding and voices no further questions/concerns/needs. Tereza DENNIS CM
--- NOTE | 2021-12-01 12:02 | DS.PCM_ITS ---
Providers Date of Admission: 11/29/21 Primary Care Physician: Dr. Michael Lawson MD Reason For Visit: HEPATIC ENCEPHALOPATHY Diagnosis Discharge Diagnosis (1) Hepatic encephalopathy: Status: Acute Code(s): K72.90 - Hepatic failure, unspecified without coma Plan #Acute hepatic encephalopathy in a patient with cirrhosis * Admit to PCU * Ammonia level is 169. Bilirubin is 2.4 which is around her previous levels. * Started on lactulose and titrate until 2-3 loose stools daily. * PT OT consult. Fall precautions. * #History of cirrhosis: * On spironolactone. Unclear about etiology of cirrhosis. * INR is 1.4. #Hypertension: Carvedilol. Also on spironolactone. #DVT prophylaxis: Lovenox CODE STATUS: Full code * Patient counseled extensively about different types of CODE STATUS including full code, DNR CCA and DNR CCA. Patient elects to be full code. * Total swpt-os-inti time 17 minutes. Medications at Discharge Home Medications pantoprazole 20 mg tablet,delayed release 40 mg PO DAILY Check with primary doctor 03/21/14 carvedilol 3.125 mg tablet 3.125 mg PO BID Check with primary doctor 05/24/21 spironolactone 100 mg tablet 100 mg PO DAILY Check with primary doctor 05/24/21 cefdinir 300 mg capsule 300 mg PO BID #10 caps 12/01/21 lactulose 20 gram/30 mL oral solution 20 g (30 mL) PO TID #3,000 mL 12/01/21 Hospital Course Operations None Procedures None Summary of Care Provided Minutes Spent on Discharge: 40 Hospital Course: KARL CONCEPCION, is a 71 F with a PMh as outlined who presents via the ED on 11/29/2021 with a complaint of weakness and confusion. She just got back from [place], and has a known history of liver disease; follows with Dr Ellsworth. She has been feeling quite weak and lethargic for 3 days prior to admission. She denies any fever, chills, cough, chest pain, palpitations, dizziness, nausea or vomiting and denies any urinary involvement. Review of systems is otherwise negative. Vitals were BP of 167/89, NV of 79, RR of 17 and temp of 98.3F. She was sat urating at 98% on room air. CBC showed wbc f 6.4, with Hb of 13.4 and platelets of 104. Chemistry showed sdium of 132, potassium of 4.5 and bicarb of 19. Cr was 0.8 and total bilirubin was 2.4, with direct bilirubin of 1.29. Ammonia level was 169.? She was admitted to be managed for acute hepatic encephalopathy in a patient with cirrhosis. She was started on lactulose 20mg tid, to titrate until she had 2-3 loose stools daily. Her ammonia level also trended downwards. Urinalysis also showed 3+ b acteria, so urine culture was ordered, and she was started on IV ceftriaxone. She felt much better. Her confusion resolved. She was discharged home on 12/01/2021, counseled to be very compliant with her lactulose at home to prevent her going into hepatic encephalopathy again. Urine also cultured gram-negative rods lactose satellite television installer with speciation pending at time of discharge. She was discharged on p.o. cefdinir 300 mg twice daily for 5 days. She is to follow-up with her primary care doctor within 1 to 2 weeks. Patient seen and examined prior to discharge. Daughter was by her bedside. She h ad no active complaints and had an uneventful night. Review of systems otherwise negative. Labs and vitals reviewed. Home meds reviewed and reconciled. Physical Exam Const alert, oriented x3 and no apparent distress General Appearance: cooperative and comfortable Orientation / Consciousness: awake Exam Limitations: no limitations HEENT normocephalic, head/scalp atraumatic, hearing grossly normal bilaterally, moist oral mucous membranes and oropharynx normal Mouth: oral and palatal mucosa normal Eyes PERRL, EOMs intact bilaterally and conjunctivae normal Neck no lymphadenopathy, supple and no JVD Resp normal respiratory effort, no retractions, no use of accessory muscles and clear to auscultation bilaterally Cardio regular rate, regular rhythm, S1 normal heart sound, S2 normal heart sound and no murmurs GI normal to inspection, nondistended, normoactive bowel sounds, soft to palpation, non-tender and non-distended Extremity normal to inspection, full ROM and no clubbing, cyanosis or edema Skin no rashes or lesions noted Neuro oriented x3, CN's II-XII intact bilaterally, moves all extremities and no focal motor deficits Sensorium / Orientation: awake and alert Speech: speech normal Motor Exam: strength 5/5 throughout Psych affect normal Medical Records Data Medical Nutrition Assessment Dietitian: Malnutrition Criteria Met Start: 11/29/21 14:33 Freq: Status: Active Protocol: Document 11/29/21 14:33 ILENE (Rec: 11/29/21 14:33 [id number]) Nutrition Malnutrition Evidence of Malnutrition Exists Yes Malnutrition (severe): Acute Illness/Injury Evidenced By Suboptimal Energy Intake ( Severe),Weight Loss (Severe) Clinical Problem Acute Disease or Injury Related Malnutrition Etiology severe, acute malnutrition r/t inadequate energy intake Signs/Symptoms as evidenced by unintentional wt loss of 11.3#/7.5% wt loss x 1 week, estimated PO intake meeting <50% of estimated energy needs x 1 week Status Active Problem Recommendation Dietitian Recommendations/Changes continue cardiac diet; will add 120mL ensure enlive 4x/day w/ medpass given acute malnutrition. Weight / BMI Weight Weight: 138 lb 10.732 oz Body Mass Index (BMI) 24.5 ABG / Lab / Microbiology Data Result Diagrams: 12/01/21 05:36 12/01/21 05:36 Laboratory: Laboratory Results - last 24 hr 12/01/21 05:36: WBC 6.7, RBC 3.56 L, Hgb 12.2, Hct 35.4 L, MCV 99.4 H, MCH 34.3 H, MCHC 34.5, RDW Std Deviation 50.6 H, RDW Coeff of Kwesi 13.8, Plt Count 85 L, MPV 10.2, Immature Gran % (Auto) 0.300, Neut % (Auto) 61.0, Lymph % (Auto) 22.3, [place] % (Auto) 13.0 H, Eos % (Auto) 2.8, Baso % (Auto) 0.6, Absolute Neuts (auto) 4.1, Absolute Lymphs (auto) 1.49, Nucleated RBC % 0 12/01/21 05:36: PT 16.9 H, INR 1.4 12/01/21 05:36: Sodium 131 L, Potassium 4.5, Chloride 102, Carbon Dioxide 23.0, Anion Gap 6, BUN 16, Creatinine 0.66, Estim Creat Clear Calc 43.92, Est GFR (MDRD) Af Amer 114, Est GFR (MDRD) Non-Af 94, BUN/Creatinine Ratio 24.3 H, Glucose 362 H, Calcium 8.8, Total Bilirubin 2.20 H, AST 34, ALT 41, Alkaline Phosphatase 82, Total Protein 6.2 L, Albumin 2.4 L, Globulin 3.8, Albumin/Globulin Ratio 0.6 L 12/01/21 05:36: Ammonia 69.0 H Microbiology: Microbiology 11/29/21 13:10 Urine, Clean Catch Urine Culture - Preliminary GNR lactose satellite television installer D/C Instructions Discharge Diet: Low fat / Low cholesterol Discharge Activity: Return to Normal Activity Weight Bearing Status: Weight bearing as tolerated Call your doctor if you observe: Fever of 101 or Higher, Shortness of breath, Swelling in the ankles and - (confusion) Meaningful Use Info Meaningful Use Diagnoses (Choose all that apply): None applicable Discharge Plan Admission Admit Date/Time: 11/29/21 10:58 Primary Reason for Your Visit: UTI, acute hepatic encephalopathy Attending Provider: Lara Richardson Primary Care Provider: Michael Lawson Instructions Patient Instructions: Lactulose Oral solution [Encephalopathy], Ammonia, Hepatic Encephalopathy, UITs Women Discharge Orders/Prescriptions Prescriptions: New lactulose 20 gram/30 mL solution 20 g PO TID Qty: 3000 2RF Rx Instructions: titrate until 2-3 loose stools daily cefdinir 300 mg capsule 300 mg PO BID Qty: 10 0RF Continued pantoprazole 20 MG tablet 40 mg PO DAILY spironolactone 100 mg Tablet 100 mg PO DAILY carvedilol 3.125 mg Tablet 3.125 mg PO BID Discontinued hydrocodone-acetaminophen 5-325 mg tablet 1 tab PO Q6H PRN (Reason: pain) 3 Days Qty: 12 0RF Referrals / Follow Up: Michael Lawson MD [Primary Care Provider] - Within 2 Weeks Lb Arias DO [Med Staff - Active Staff] - Within 2 Weeks Disposition Disposition (needs filled in before D/C Order can be placed): Home Health Service Charges/Coding Visit Charges Inpatient E&M: 07742 Disch Hosp
--- NOTE | 2021-12-01 13:55 | PHA.DC.MC ---
Addendum entered and electronically signed by Mariel Snowden 12/01/21 13:56: Patient counseled by pharmacy order entry technician, Parag. Original Note: Pharmacy Service has performed discharge medication reconciliation and counseling for this patient. 1. CEFDINIR 300MG PO BID X 5 DAYS 2. LACTULOSE 20GM PO TID The patient's discharge medication list was reviewed for discrepancies and discrepancies were resolved. Home Medications pantoprazole 20 mg tablet,delayed release 40 mg PO DAILY Check with primary doctor 03/21/14 carvedilol 3.125 mg tablet 3.125 mg PO BID Check with primary doctor 05/24/21 spironolactone 100 mg tablet 100 mg PO DAILY Check with primary doctor 05/24/21 cefdinir 300 mg capsule 300 mg PO BID #10 caps 12/01/21 lactulose 20 gram/30 mL oral solution 20 g (30 mL) PO TID #3,000 mL 12/01/21 The patient was counseled on the following discharge medications and changes in medications for homegoing were reviewed. The Reason for Use, instructions for use, and potential side effects were reviewed for all new medications. The patient's questions regarding all of their medications were answered. The patient was able to verbally demonstrate an understanding of their discharge medications.
== END 2021-12-01 15:10 | disposition home health service (06) | DRG 441 ==
LOC: ED 10:55 → PCU 11:18
PROVIDERS: Admitting Provider Student in an Organized Health Care Education/Training Program; Emergency Provider Emergency Medicine; PCP Family Medicine; Visit Provider Student in an Organized Health Care Education/Training Program
DX: K72.00 Acute and subacute hepatic failure without coma (principal); E43 Unspecified severe protein-calorie malnutrition; N39.0 Urinary tract infection, site not specified; K74.60 Unspecified cirrhosis of liver; I10 Essential (primary) hypertension; B96.20 Unspecified Escherichia coli [E. coli] as the cause of diseases classified elsewhere; Z68.24 Body mass index [BMI] 24.0-24.9, adult; Z79.899 Other long term (current) drug therapy
CPT/HCPCS: 36415; 80048; 80053; 80076; 81001; 82140; 83735; 84484; 85025; 85610; 87077; 87086; 87088; 87186; 93005; 97110; 97162; 97166; 97535; 97802; 99284; J7030; A4216

== ENCOUNTER 2021-12-06 15:39 | Outpatient (CLI) | payer MEDICARE, BC, SELFPAY ==
[2021-12-06 17:57] LABS: Absolute Lymphocyte Count 1.33 X10^3/uL (0.83-4.51); Absolute Neutrophil Count 4.2 X10^3/uL (2.0-7.7); Basophil# 0.04 X10^3/uL; Basophil% 0.6 % (0-1); Eosinophil# 0.12 X10^3/uL; Eosinophils% 1.8 % (0-5); Hematocrit 35.8 % (37-47); Hemoglobin 12.4 g/dL (12.0-15.0); Lymphocyte # 1.33 X10^3/ul (0.83-4.51); Lymphocyte % 20.3 % (19-41); Mean Corp Hgb Conc 34.6 g/dL (32-36); Mean Corpuscular Volume 101.1 fL (81-99); Mean Platelet Vol. 10.2 fl (6.2-12.0); Monocyte# 0.86 X10^3/uL; Monocyte% 13.1 % (0-10); NRBC Flagged by Analyzer 0 % (0-5); Neutrophil # 4.15 X10^3/uL (2.7-7.7); Neutrophil % 63.6 % (47-70); Platelet Count 104 K/mm3 (150-450); RBC Distribution Width CV 14.2 % (11.6-14.6); RBC Distribution Width SD 53.1 fl (35.1-43.9); Red Blood Count 3.54 M/mm3 (4.2-5.4); White Blood Count 6.5 K/mm3 (4.4-11.0)
[2021-12-06 18:21] LABS: International Normalized Ratio 1.3; Prothrombin Time (Protime)PT. 16.3 SECONDS (11.7-14.9)
[2021-12-06 18:27] LABS: Vitamin B12 693 pg/mL (211-911)
[2021-12-06 20:48] LABS: ALB/GLOB Ratio 0.6 RATIO (0.9-2.4); AST(SGOT) 46 U/L (15-37); Alanine Aminotransfer ALT/SGPT 48 U/L (13-56); Albumin, Serum 2.7 g/dL (3.2-5.0); Alkaline Phosphatase 96 U/L (45-117); Anion Gap 8 (5-15); BUN 27 mg/dL (7-18); BUN/Creat Ratio 28.2 RATIO (10-20); Calcium,Total 9.2 mg/dL (8.5-10.1); Chloride 98 mmol/L (98-107); Creatinine, Serum 0.96 mg/dL (0.55-1.02); EST Glomerular Filtration Rate 61 mL/min (>60); Est Glom Filt Rate - Afr Amer 74 mL/min (>60); Ferritin 55 ng/mL (8-252); Globulin 4.5 g/dL (2.2-4.2); Glucose 349 mg/dL (74-106); Iron 151 ug/dL (50-170); Protein, Total 7.2 g/dL (6.4-8.2); Sodium Level 131 mmol/L (136-145); Thyroid Stim Hormone (TSH) 1.06 uIU/mL (0.358-3.74)
[2021-12-08 08:17] LABS: AFP, Tumor Marker 3.5 ng/mL (0.0-9.2)
== END 2021-12-06 23:59 | disposition home or self-care (01) ==
PROVIDERS: PCP Family Medicine; Referring Provider Internal Medicine Gastroenterology; Visit Provider Internal Medicine Gastroenterology
DX: K74.60 Unspecified cirrhosis of liver (principal); E46 Unspecified protein-calorie malnutrition
CPT/HCPCS: 36415; 80053; 82105; 82140; 82306; 82607; 82728; 83540; 83735; 84443; 85025; 85610; 85730

== ENCOUNTER → 2021-12-17 | Outpatient (CLI) | payer MEDICARE, BC, SELFPAY ==
--- NOTE | 2021-12-17 10:45 | MRI_ITS ---
STUDY: MRI ABDOMEN WITH AND WITHOUT CONTRAST REASON FOR EXAM: Female, 71 years old. CIRRHOSIS,ABN US TECHNIQUE: Standardized fat and water weighted pulse sequences were obtained in all 3 orthogonal planes post contrast administration. IV 13ml Clariscan was administered for the contrast portion of the examination. COMPARISON: Ultrasound 09/11/2021 FINDINGS: The visualized lung bases are unremarkable. The visualized portions of the heart are within normal limits. There is a diffuse contour abnormality of the liver consistent with cirrhotic changes. There are surgical clips in the gallbladder fossa consistent with a prior cholecystectomy. Normal spleen. Subcentimeter T2 slightly hyperintense round mass without contrast enhancement within the body of the pancreas consistent with a pancreatic cyst. There is another 1 cm T2 slightly hyperintense round mass without contrast enhancement within the tail the pancreas consistent with another cyst. Normal bilateral adrenal glands. Normal right kidney. Normal left kidney. Normal visualized stomach. Normal small intestine. Normal colon. Normal abdominal aorta. Normal inferior vena cava. Normal retroperitoneum. Normal abdominal wall. Normal osseous structures. MRI/MRI Abd WITH and W/O Contrast IMPRESSION: 1. Cirrhosis. 2. 2. Small cysts within the body and tail of the pancreas. Electronically Signed: Meir Maldonado MD at 8:23 EDT ,
== END | disposition home or self-care (01) ==
LOC: MRI 10:12
PROVIDERS: PCP Family Medicine; Referring Provider Internal Medicine Gastroenterology; Visit Provider Internal Medicine Gastroenterology
DX: K74.60 Unspecified cirrhosis of liver (principal); K86.2 Cyst of pancreas; R93.3 Abnormal findings on diagnostic imaging of other parts of digestive tract
CPT/HCPCS: 74183; A9575; A4216

== ENCOUNTER → 2022-03-14 | Outpatient (CLI) | payer MEDICARE, BC, SELFPAY ==
[2022-03-14 18:13] LABS: Anion Gap 10 (5-15); BUN 17 mg/dL (7-18); BUN/Creat Ratio 21.5 RATIO (10-20); Calcium,Total 8.5 mg/dL (8.5-10.1); Chloride 100 mmol/L (98-107); Creatinine, Serum 0.79 mg/dL (0.55-1.02); EST Glomerular Filtration Rate 77 mL/min (>60); Est Glom Filt Rate - Afr Amer 93 mL/min (>60); Glucose 272 mg/dL (74-106); Magnesium 2.1 mg/dL (1.6-2.6); Potassium 4.3 mmol/L (3.5-5.1); Sodium Level 133 mmol/L (136-145)
== END | disposition home or self-care (01) ==
LOC: MTLAB 15:29
PROVIDERS: PCP Family Medicine; Referring Provider Internal Medicine Gastroenterology; Visit Provider Internal Medicine Gastroenterology
DX: R18.8 Other ascites (principal); K74.60 Unspecified cirrhosis of liver
CPT/HCPCS: 36415; 80048; 83735

== ENCOUNTER → 2022-03-15 | Outpatient (CLI) | payer MEDICARE, BC, SELFPAY ==
--- NOTE | 2022-03-15 14:21 | US_ITS ---
PROCEDURE: Ultrasound guided paracentesis. DATE OF EXAMINATION: 03/15/2022. INDICATION: Female, 71 years old. Ascites. PHYSICIAN: Kosta Meneses D.O. TECHNIQUE: The risks, benefits, and alternatives to the procedure were explained to the patient. The specific risks of bleeding, infection, and damage to bowel were detailed and accepted. Witnessed informed consent was obtained. The abdomen was ultrasonographically surveyed. An appropriate pocket of fluid was identified at the right lower quadrant. The skin were cleaned and prepped in the usual sterile fashion. Using ultrasound guidance, the peritoneal cavity was accessed with a 5-German paracentesis needle/catheter system. The trocar was removed. A total of 1700 ml of clear straw-colored ascites fluid were removed from the peritoneal cavity. The catheter was removed and a sterile dressing was applied. The procedure was well tolerated. The patient was discharged in stable condition. US/Paracentesis with US IMPRESSION: Ultrasound guided therapeutic paracentesis. Electronically Signed: Kosta Meneses, at 15:47 EST ,
[2022-03-15 14:57] VITALS: BP 107/54; BP 117/61; BP 120/66; PULSE 72; PULSE 74; PULSE 75; RESP 18; TEMP 36.9; O2SAT 98; O2SAT 99
[2022-03-15] MEDS: Lidocaine 2% (20 ml mdv) 20 ML Vial INFILT (15:00)
--- NOTE | 2022-03-15 15:53 | NURSING ---
spoke with [facility] informing that they could call when felt pt needed drained again. [facility] asks for pt to be added to schedule next wk. [facility] states thurs or mon afternoon next week would work. email sent to scheduling.
== END | disposition home or self-care (01) ==
LOC: US 14:10
PROVIDERS: PCP Family Medicine
DX: R18.8 Other ascites (principal)
CPT/HCPCS: 49083

== ENCOUNTER 2022-03-20 12:26 | Inpatient (IN) | payer MEDICARE, BC, SELFPAY ==
[2022-03-20] VITALS (9 sets, daily range): BP systolic 102–147; BP diastolic 67–88; PULSE 81–90; RESP 16–17; TEMP 36–36.9; O2SAT 95–100; BMI 25.0; BMI 25.1
--- NOTE | 2022-03-20 13:01 | RAD_ITS ---
STUDY: X-RAY CHEST REASON FOR EXAM: Female, 71 years old. weakness TECHNIQUE: XR Chest 1 View COMPARISON: Prior comparison studies are not available for review at this time. FINDINGS: There is atherosclerotic calcification of the aortic arch with tortuosity. There are diffuse degenerative changes of the visualized thoracic spine. There is degenerative osteoarthritis of the bilateral shoulders. There is no demonstrated pleural abnormality. Normal size heart. Normal mediastinum and sarahy. Normal visualized pulmonary arteries. There is no demonstrated abnormality of the visualized soft tissue structures of the upper abdomen. RAD/Chest 1 View (Portable) IMPRESSION: There are no acute findings. Electronically Signed: David Broderick MD at 14:52 EST ,
--- NOTE | 2022-03-20 13:01 | EKG12_ITS ---
Test Reason : ALT LOC Blood Pressure : / mmHG Vent. Rate : 087 BPM Atrial Rate : 087 BPM P-R Int : 162 ms QRS Dur : 074 ms QT Int : 384 ms P-R-T Axes : 030 -24 056 degrees QTc Int : 462 ms Normal sinus rhythm Minimal voltage criteria for LVH, may be normal variant ( R in aVL ) Borderline ECG Confirmed by YASSINE ROMERO, KARTHIK ([id number]), video editor SHANIQUA HOLDEN ([id number]) on 03/22/2022 11:08:09 AM Referred By: Confirmed By:KARTHIK METZGER MD
--- NOTE | 2022-03-20 13:01 | CT_ITS ---
STUDY: CT BRAIN WITHOUT CONTRAST REASON FOR EXAM: Female, 71 years old. confusion TECHNIQUE: Transaxial CT imaging of the brain was performed without administration of intravenous contrast material. Individualized dose optimization techniques were used for this CT. COMPARISON: 06.10.20 mri FINDINGS: Normal calvarium. Normal soft tissues. Normal size ventricles and extra-axial spaces for the patient''s age. Normal white matter tracts of the cerebral hemispheres. Normal basal ganglia and thalami. Normal brainstem. Normal cerebellum. There is no intracranial hemorrhage. There are no findings of an acute ischemic infarction. Normal visualized paranasal sinuses. ASPECTS 10 CT/Brain/Head without Contrast IMPRESSION: There are no acute intracranial findings. Electronically Signed: David Broderick MD at 15:02 EST ,
--- NOTE | 2022-03-20 13:03 | EDS_ITS ---
HPI <DASHAWN Beard - Last Filed: 03/20/22 16:25> History of Present Illness Chief Complaint: Alt LOC Narrative Narrative: 71-year-old female with PMH of hypertension, cirrhosis, newly diagnosed type 2 diabetes presents with altered mental status. According to her son and daughter she started becoming confused last night which worsened today with combativeness. Her adult son lives with her but states she is independent and manages her own medications and family is not really sure if she is compliant. No recent fever or infectious symptoms. She occasionally has vomiting and did throw up earlier this week but nothing recent. She does not drink alcohol. PFSH <DASHAWN Beard - Last Filed: 03/20/22 16:25> FORMERLY [facility] Medical History Anemia Carpal tunnel syndrome Cirrhosis Cirrhosis of liver Hyperammonemia Home Medications pantoprazole 20 mg tablet,delayed release 40 mg PO DAILY Check with primary doctor 03/21/14 [History Last Taken 03/31/14 06:00] carvedilol 3.125 mg tablet 3.125 mg PO BID Check with primary doctor 05/24/21 [History Last Taken Unknown] spironolactone 100 mg tablet 100 mg PO DAILY Check with primary doctor 05/24/21 [History Last Taken Unknown] lactulose 20 gram/30 mL oral solution 20 g (30 mL) PO TID #3,000 mL 12/01/21 [Rx Last Taken Unknown] ascorbic acid (vitamin C) 500 mg tablet (Vitamin C) 500 mg PO DAILY 03/20/22 [History Last Taken Unknown] calcium 600 mg capsule 1,200 mg PO DAILY 03/20/22 [History Last Taken Unknown] cholecalciferol (vitamin D3) 25 mcg (1,000 unit) capsule (Vitamin D3) 25 mcg PO DAILY 03/20/22 [History Last Taken Unknown] furosemide 40 mg tablet 40 mg PO DAILY 03/20/22 [History Last Taken Unknown] insulin aspart U-100 100 unit/mL (3 mL) subcutaneous pen (Novolog Flexpen U-100 Insulin aspart) 8 unit subcut TIDCM 03/20/22 [History Last Taken Unknown] insulin aspart U-100 100 unit/mL (3 mL) subcutaneous pen (Novolog Flexpen U-100 Insulin aspart) See Protocol subcut TIDCM 03/20/22 [History Last Taken Unknown] insulin glargine 100 unit/mL (3 mL) subcutaneous pen (Basaglar KwikPen U-100 Insulin) 28 unit subcut QHS 03/20/22 [History Last Taken Unknown] iron 40 mg capsule 45 mg PO DAILY 03/20/22 [History Last Taken Unknown] magnesium 250 mg tablet 250 mg PO DAILY 03/20/22 [History Last Taken Unknown] Allergy/AdvReac Type Severity Reaction Status Date / Time No Known Allergies Allergy Verified 03/20/22 12:47 Surgical History H/O thyroidectomy H/O: hysterectomy History of cholecystectomy History of hip replacement Social History Smoking Status: Never smoker ROS <DASHAWN Beard - Last Filed: 03/20/22 16:25> ROS ED ROS Narrative Constitutional: Negative for fever, chills, malaise. Eyes: Negative for visual change. ENT: Negative for sore throat, rhinorrhea. CVS: Negative for palpitations, chest pain, syncope. Respiratory: Negative for shortness of breath, cough. GI: Negative for abdominal pain, nausea, vomiting, diarrhea. : Negative for dysuria, hematuria or frequency. Neuro: Negative for headache, motor/sensory dysfunction. Skin: Negative for rash, abscess, or wound. Musc: Negative for joint pain, swelling, trauma. Heme: Negative for easy bruising, bleeding, lymphadenopathy. EXAM <DASHAWN Beard - Last Filed: 03/20/22 16:25> Physical Exam Narrative Exam Narrative: CONST: Patient sitting in no acute distress. EYES: Normal inspection. PERRLA, EOMI. ENT: Normal inspection, moist mucous membranes. NECK: Normal inspection. RESP: No respiratory distress, CTAB. CVS: Regular rate and rhythm, no murmur, no gallop. ABD: Soft and nontender, no guarding or rebound, nondistended. SKIN: Color normal, no rash, warm, dry, intact. EXTREMITIES: Normal appearance, no pedal edema. NEURO: When asked any question patient only tells me her name, when asked to open her eyes she squeezed them shut tightly. She is moving all extremities. PSYCH: Normal affect. Const Vital Signs: 03/20/22 12:38 03/20/22 12:44 03/20/22 14:00 Temperature 96.8 F L 96.8 F L 98.0 F Temperature Source Temporal Temporal Temporal Pulse Rate 85 86 81 Respiratory Rate 17 16 16 Blood Pressure 147/82 H 133/75 H 102/88 H Blood Pressure Mean 103 94 92 Pulse Ox 99 99 100 Oxygen Delivery Method Room Air Room Air Room Air 03/20/22 15:31 Temperature 97.6 F L Temperature Source Temporal Pulse Rate 90 Respiratory Rate 16 Blood Pressure 141/76 H Blood Pressure Mean 97 Pulse Ox 96 Oxygen Delivery Method Room Air <Dr. Leon Richardson MD - Last Filed: 03/20/22 17:15> Physical Exam Const Vital Signs: 03/20/22 12:38 03/20/22 12:44 03/20/22 14:00 Temperature 96.8 F L 96.8 F L 98.0 F Temperature Source Temporal Temporal Temporal Pulse Rate 85 86 81 Respiratory Rate 17 16 16 Blood Pressure 147/82 H 133/75 H 102/88 H Blood Pressure Mean 103 94 92 Pulse Ox 99 99 100 Oxygen Delivery Method Room Air Room Air Room Air 03/20/22 15:31 Temperature 97.6 F L Temperature Source Temporal Pulse Rate 90 Respiratory Rate 16 Blood Pressure 141/76 H Blood Pressure Mean 97 Pulse Ox 96 Oxygen Delivery Method Room Air MDM <DASHAWN Beard - Last Filed: 03/20/22 16:25> [facility] Narrative Medical decision making narrative: Patient with history of cirrhosis presents with altered mental status that started last night. She appears well and nontoxic but is only oriented to self and somewhat agitated on exam. Vital signs are unremarkable. Work-up shows elevated ammonia at 100. She also has a sodium of 133, normal renal function, and glucose of 276 consistent with her diabetes. It looks like she chronically has elevated total bilirubin which is slightly higher today at 3.3 with normal LFTs. She also has a UTI with no leukocytosis. CT brain and CXR are negative for acute findings. Patient will be treated with lactulose and Rocephin. Case was discussed with the hospitalist for admission. Lab Data Attestation: I reviewed the patient's lab results. Labs: Laboratory Results - last 24 hr 03/20/22 03/20/2203/20/22 13:10 13:25 13:25 WBC 8.8 RBC 3.57 L Hgb 12.8 Hct 36.3 L MCV 101.7 H MCH 35.9 H MCHC 35.3 RDW Std Deviation 56.4 H RDW Coeff of [place] 15.0 H Plt Count 109 L MPV 9.4 Immature Gran % (Auto) 0.600 Neut % (Auto) 69.0 Lymph % (Auto) 15.3 L [place] % (Auto) 12.7 H Eos % (Auto) 1.8 Baso % (Auto) 0.6 Absolute Neuts (auto) 6.1 Absolute Lymphs (auto) 1.35 Nucleated RBC % 0 PT INR Sodium 133 L Potassium 5.0 Chloride 100 Carbon Dioxide 24.0 Anion Gap 9 BUN 18 Creatinine 0.79 Estim Creat Clear Calc 43.92 Est GFR (MDRD) Af Amer 93 Est GFR (MDRD) Non-Af 77 BUN/Creatinine Ratio 22.8 H Glucose 276 H Lactic Acid Calcium 9.1 Total Bilirubin 3.30 H Direct Bilirubin 2.15 H AST 36 ALT 36 Alkaline Phosphatase 86 Ammonia Total Protein 7.1 Albumin 2.4 L Globulin 4.7 H Urine Color Yellow Urine Clarity Cloudy Urine pH 6.0 Ur Specific [place] 1.020 Urine Protein 15 H Urine Glucose (UA) Normal Urine Ketones 5 H Urine Occult Blood 50 H Urine Nitrite Negative Urine Bilirubin Negative Urine Urobilinogen 4 H Ur Leukocyte Esterase 100 H Urine RBC 0 SEEN Urine WBC 25-50 SEEN Ur Squamous Epith Cells 0 SEEN Urine Bacteria 4+ Urine Mucus 0 SEEN 03/20/22 03/20/22 03/20/22 13:25 13:25 15:05 WBC RBC Hgb Hct MCV MCH MCHC RDW Std Deviation RDW Coeff of [place] Plt Count MPV Immature Gran % (Auto) Neut % (Auto) Lymph % (Auto) [place] % (Auto) Eos % (Auto) Baso % (Auto) Absolute Neuts (auto) Absolute Lymphs (auto) Nucleated RBC % PT 17.8 H INR 1.5 Sodium Potassium Chloride Carbon Dioxide Anion Gap BUN Creatinine Estim Creat Clear Calc Est GFR (MDRD) Af Amer Est GFR (MDRD) Non-Af BUN/Creatinine Ratio Glucose Lactic Acid 3.8 H* Calcium Total Bilirubin Direct Bilirubin AST ALT Alkaline Phosphatase Ammonia 100.0 H Total Protein Albumin Globulin Urine Color Urine Clarity Urine pH Ur Specific [place] Urine Protein Urine Glucose (UA) Urine Ketones Urine Occult Blood Urine Nitrite Urine Bilirubin Urine Urobilinogen Ur Leukocyte Esterase Urine RBC Urine WBC Ur Squamous Epith Cells Urine Bacteria Urine Mucus Radiography Diagnostic Testing: Clinical Impression(s) from Imaging Studies Brain CT 03/20/22 13:01 IMPRESSION: There are no acute intracranial findings. Electronically Signed: David Broderick MD at 15:02 EST , Chest X-Ray 03/20/22 13:01 IMPRESSION: There are no acute findings. Electronically Signed: David Broderick MD at 14:52 EST , ED attending interpretation of chest x-ray shows normal heart size, no acute infiltrate, edema, or effusion. <Dr. Leon Richardson MD - Last Filed: 03/20/22 17:15> [facility] MDM Narrative Medical decision making narrative: Patient with history of cirrhosis presents with altered mental status that started last night. She appears well and nontoxic but is only oriented to self and somewhat agitated on exam. Vital signs are unremarkable. Work-up shows elevated ammonia at 100. She also has a sodium of 133, normal renal function, and glucose of 276 consistent with her diabetes. It looks like she chronically has elevated total bilirubin which is slightly higher today at 3.3 with normal LFTs. She also has a UTI with no leukocytosis. CT brain and CXR are negative for acute findings. Patient will be treated with lactulose and Rocephin. Case was discussed with the hospitalist for admission. I have personally performed a face to face assessment of the patient and have reviewed the CARMEN Note. I performed a substantive portion of the visit including all aspects of the following. My ruiz findings include: History is remarkable for forgotten fullness on Monday. She denies fever, chills night sweats. When asked if she drinks response was a lot . Daughter states she does not drink alcohol and has [place]. She states she does not know why she was here. She states her daughter made her come in. She is not a good informant. Exam is patient is disoriented. HEENT exams unremarkable. Lungs are clear to auscultation. Heart is regular. Abdomen soft nontender. There is no CVA tenderness noted. There is no dermatologic lesions noted. She has nonfocal neurologic exam. Medical Decision Making with history of liver disease and history of hepatic encephalopathy will obtain ammonia level. Proper blood work was obtained as well as urine. Urine is consistent with infection. Per review of old records patient's had encephalopathy due to prior urinary tract infection and hepatic. Other additions or changes: Cultures were obtained. Patient was treated with antibiotics. She was admitted to the hospital. Lab Data Labs: Laboratory Results - last 24 hr 03/20/22 03/20/22 03/20/22 13:10 13:25 13:25 WBC 8.8 RBC 3.57 L Hgb 12.8 Hct 36.3 L MCV 101.7 H MCH 35.9 H MCHC 35.3 RDW Std Deviation 56.4 H RDW Coeff of [place] 15.0 H Plt Count 109 L MPV 9.4 Immature Gran % (Auto) 0.600 Neut % (Auto) 69.0 Lymph % (Auto) 15.3 L [place] % (Auto) 12.7 H Eos % (Auto) 1.8 Baso % (Auto) 0.6 Absolute Neuts (auto) 6.1 Absolute Lymphs (auto) 1.35 Nucleated RBC % 0 PT INR Sodium 133 L Potassium 5.0 Chloride 100 Carbon Dioxide 24.0 Anion Gap 9 BUN 18 Creatinine 0.79 Estim Creat Clear Calc 43.92 Est GFR (MDRD) Af Amer 93 Est GFR (MDRD) Non-Af 77 BUN/Creatinine Ratio 22.8 H Glucose 276 H Lactic Acid Calcium 9.1 Total Bilirubin 3.30 H Direct Bilirubin 2.15 H AST 36 ALT 36 Alkaline Phosphatase 86 Ammonia Total Protein 7.1 Albumin 2.4 L Globulin 4.7 H Urine Color Yellow Urine Clarity Cloudy Urine pH 6.0 Ur Specific [place] 1.020 Urine Protein 15 H Urine Glucose (UA) Normal Urine Ketones 5 H Urine Occult Blood 50 H Urine Nitrite Negative Urine Bilirubin Negative Urine Urobilinogen 4 H Ur Leukocyte Esterase 100 H Urine RBC 0 SEEN Urine WBC 25-50 SEEN Ur Squamous Epith Cells 0 SEEN Urine Bacteria 4+ Urine Mucus 0 SEEN 03/20/22 03/20/22 03/20/22 13:25 13:25 15:05 WBC RBC Hgb Hct MCV MCH MCHC RDW Std Deviation RDW Coeff of [place] Plt Count MPV Immature Gran % (Auto) Neut % (Auto) Lymph % (Auto) [place] % (Auto) Eos % (Auto) Baso % (Auto) Absolute Neuts (auto) Absolute Lymphs (auto) Nucleated RBC % PT 17.8 H INR 1.5 Sodium Potassium Chloride Carbon Dioxide Anion Gap BUN Creatinine Estim Creat Clear Calc Est GFR (MDRD) Af Amer Est GFR (MDRD) Non-Af BUN/Creatinine Ratio Glucose Lactic Acid 3.8 H* Calcium Total Bilirubin Direct Bilirubin AST ALT Alkaline Phosphatase Ammonia 100.0 H Total Protein Albumin Globulin Urine Color Urine Clarity Urine pH Ur Specific [place] Urine Protein Urine Glucose (UA) Urine Ketones Urine Occult Blood Urine Nitrite Urine Bilirubin Urine Urobilinogen Ur Leukocyte Esterase Urine RBC Urine WBC Ur Squamous Epith Cells Urine Bacteria Urine Mucus Radiography Diagnostic Testing: Clinical Impression(s) from Imaging Studies Brain CT 03/20/22 13:01 IMPRESSION: There are no acute intracranial findings. Electronically Signed: David Broderick MD at 15:02 EST , Chest X-Ray 03/20/22 13:01 IMPRESSION: There are no acute findings. Electronically Signed: David Broderick MD at 14:52 EST , Discharge Plan Triage Chief Complaint: Alt LOC ED Midlevel Provider: Pooja Read ED Provider: Leon Richardson Dx/Rx/DC Orders Clinical Impression: Altered mental status, Increased ammonia level, Acute UTI, History of cirrhosis, Acidosis, lactic, Elevated bilirubin, Acute encephalopathy Primary Care Provider: Michael Lawson Disposition Disposition: [facility]
[2022-03-20] MEDS: 0.9% Normal Saline 1,000 ML 1000 ML IV (13:24)
[2022-03-20 13:35] LABS: Mucous, Urine 0 SEEN /hpf (<or=2+); Red Blood Cells-Urine 0 SEEN /hpf (0-5); Squamous Epithelial Cells - UA 0 SEEN /hpf (5-10)
[2022-03-20 13:38] LABS: Absolute Lymphocyte Count 1.35 X10^3/uL (0.83-4.51); Absolute Neutrophil Count 6.1 X10^3/uL (2.0-7.7); Basophil# 0.05 X10^3/uL; Basophil% 0.6 % (0-1); Eosinophil# 0.16 X10^3/uL; Eosinophils% 1.8 % (0-5); Hematocrit 36.3 % (37-47); Hemoglobin 12.8 g/dL (12.0-15.0); Lymphocyte # 1.35 X10^3/ul (0.83-4.51); Lymphocyte % 15.3 % (19-41); Mean Corp Hgb Conc 35.3 g/dL (32-36); Mean Corpuscular Hgb 35.9 pg (27.0-32.0); Mean Corpuscular Volume 101.7 fL (81-99); Mean Platelet Vol. 9.4 fl (6.2-12.0); Monocyte# 1.12 X10^3/uL; Monocyte% 12.7 % (0-10); NRBC Flagged by Analyzer 0 % (0-5); Neutrophil # 6.09 X10^3/uL (2.7-7.7); Platelet Count 109 K/mm3 (150-450); RBC Distribution Width SD 56.4 fl (35.1-43.9); Red Blood Count 3.57 M/mm3 (4.2-5.4); White Blood Count 8.8 K/mm3 (4.4-11.0)
[2022-03-20 13:53] LABS: AST(SGOT) 36 U/L (15-37); Alanine Aminotransfer ALT/SGPT 36 U/L (13-56); Albumin, Serum 2.4 g/dL (3.2-5.0); Alkaline Phosphatase 86 U/L (45-117); Anion Gap 9 (5-15); BUN 18 mg/dL (7-18); BUN/Creat Ratio 22.8 RATIO (10-20); Bilirubin, Direct 2.15 mg/dL (0.00-0.30); Calcium,Total 9.1 mg/dL (8.5-10.1); Chloride 100 mmol/L (98-107); Creatinine, Serum 0.79 mg/dL (0.55-1.02); EST Glomerular Filtration Rate 77 mL/min (>60); Est Glom Filt Rate - Afr Amer 93 mL/min (>60); Estimated Creatinine Clearance 43.92 ml/min; Globulin 4.7 g/dL (2.2-4.2); Glucose 276 mg/dL (74-106); Protein, Total 7.1 g/dL (6.4-8.2); Sodium Level 133 mmol/L (136-145)
[2022-03-20 14:01] LABS: Color, Urine Yellow (Yellow); Glucose, Dipstick Normal (Normal); Ketone-Dipstick 5 mg/dl (Negative); Leukocyte Esterase-Dipstick 100 /ul (Negative); Nitrite-Dipstick Negative (Negative); Occult Blood-Urine 50 /ul (Negative); Protein-Dipstick 15 mg/dl (Negative); Urine Bilirubin Dipstick Negative (Negative); Urine Clarity Cloudy (Clear); Urine Urobilinogen 4 mg/dl (Normal)
[2022-03-20 14:08] LABS: Bacteria 4+ /hpf (None Seen); White Blood Cells 25-50 SEEN /hpf (0-5)
[2022-03-20 15:07] LABS: International Normalized Ratio 1.5; Prothrombin Time (Protime)PT. 17.8 SECONDS (11.7-14.9)
[2022-03-20] MEDS: Ceftriaxone 1 GM/50 ML BAG IV (15:10)
[2022-03-20] MEDS: Lactulose 20 GM/30 ML UDC PO ×3 (15:13→23:56)
[2022-03-20 15:51] LABS: Lactic Acid 3.8 mmol/L (0.4-1.9)
--- NOTE | 2022-03-20 16:21 | HP.PCM.HOS_ITS ---
HPI - General General Date of Service: 03/20/22 Chief Complaint: confusion HPI Narrative KARL CONCEPCION, is a 71 F who presents with confusion. Patient has known c irrhosis and takes lactulose. Patient manages her own lactulose but there is concern from the daughter that the patient may not be taking that. The patient was brought into the emergency room for evaluation. Patient was noted to have an ammonia of 100, lactic acid of 3.8 and a possible urinary tract infection. Patient did receive IV fluids and ceftriaxone for the urinary tract infection. Patient's daughter states that the patient is normally very pleasant and cooperative but patient now is currently conspiratorial and making accusations. FORMERLY [facility] Medical History Anemia Carpal tunnel syndrome Cirrhosis Cirrhosis of liver Hyperammonemia Home Medications pantoprazole 20 mg tablet,delayed release 40 mg PO DAILY Check with primary doct or 03/21/14 [History Last Taken 03/31/14 06:00] carvedilol 3.125 mg tablet 3.125 mg PO BID Check with primary doctor 05/24/21 [History Last Taken Unknown] spironolactone 100 mg tablet 100 mg PO DAILY Check with primary doctor 05/24/21 [History Last Taken Unknown] lactulose 20 gram/30 mL oral solution 20 g (30 mL) PO TID #3,000 mL 12/01/21 [Rx Last Taken Unknown] ascorbic acid (vitamin C) 500 mg tablet (Vitamin C) 500 mg PO DAILY 03/20/22 [History Last Taken Unknown] calcium 600 mg capsule 1,200 mg PO DAILY 03/20/22 [History Last Taken Unknown] cholecalciferol (vitamin D3) 25 mcg (1,000 unit) capsule (Vitamin D3) 25 mcg PO DAILY 03/20/22 [History Last Taken Unknown] furosemide 40 mg tablet 40 mg PO DAILY 03/20/22 [History Last Taken Unknown] insulin aspart U-100 100 unit/mL (3 mL) subcutaneous pen (Novolog Flexpen U-100 Insulin aspart) 8 unit subcut TIDCM 03/20/22 [History Last Taken Unknown] insulin aspart U-100 100 unit/mL (3 mL) subcutaneous pen (Novolog Flexpen U-100 Insulin aspart) See Protocol subcut TIDCM 03/20/22 [History Last Taken Unknown] insulin glargine 100 unit/mL (3 mL) subcutaneous pen (Basaglar KwikPen U-100 Insulin) 28 unit subcut QHS 03/20/22 [History Last Taken Unknown] iron 40 mg capsule 45 mg PO DAILY 03/20/22 [History Last Taken Unknown] magnesium 250 mg tablet 250 mg PO DAILY 03/20/22 [History Last Taken Unknown] Allergy/AdvReac Type Severity Reaction Status Date / Time No Known Allergies Allergy Verified 03/20/22 12:47 Surgical History H/O thyroidectomy H/O: hysterectomy History of cholecystectomy History of hip replacement Social History Smoking Status: Never smoker ROS Review of Systems ROS Unobtainable: due to encephalopathy Vital Signs Vital Signs Vital Signs: 03/20/22 12:38 03/20/22 12:44 03/20/22 14:00 Temperature 36.0 C L 36.0 C L 36.7 C Temperature Source Temporal Temporal Temporal Pulse Rate 85 86 81 Respiratory Rate 17 16 16 Blood Pressure 147/82 H 133/75 H 102/88 H Blood Pressure Mean 103 94 92 Pulse Ox 99 99 100 Oxygen Delivery Method Room Air Room Air Room Air 03/20/22 15:31 Temperature 36.4 C L Temperature Source Temporal Pulse Rate 90 Respiratory Rate 16 Blood Pressure 141/76 H Blood Pressure Mean 97 Pulse Ox 96 Oxygen Delivery Method Room Air Weight Weight: 64.229 kg Body Mass Index (BMI) 25.0 Physical Exam Const Constitutional Narrative: Confused. But allows me to examine her and follows some commands. HEENT normocephalic and hearing grossly normal bilaterally Eyes Eyes Narrative: Icterus Resp normal respiratory effort, no retractions, no use of accessory muscles and clear to auscultation bilaterally Cardio regular rate, regular rhythm, S1 normal heart sound and S2 normal heart sound GI normal to inspection, nondistended, normoactive bowel sounds, soft to palpation, non-tender and non-distended Extremity normal to inspection Results Lab / Micro Data Result Diagrams: 03/20/22 13:25 03/20/22 13:25 Labs: Laboratory Results - last 24 hr 03/20/22 13:10: Urine Color Yellow, Urine Clarity Cloudy, Urine pH 6.0, Ur Specific [place] 1.020, Urine Protein 15 H, Urine Glucose (UA) Normal, Urine Ketones 5 H, Urine Occult Blood 50 H, Urine Nitrite Negative, Urine Bilirubin Negative, Urine Urobilinogen 4 H, Ur Leukocyte Esterase 100 H, Urine RBC 0 SEEN, Urine WBC 25-50 SEEN, Ur Squamous Epith Cells 0 SEEN, Urine Bacteria 4+, Urine Mucus 0 SEEN 03/20/22 13:25: WBC 8.8, RBC 3.57 L, Hgb 12.8, Hct 36.3 L, MCV 101.7 H, MCH 35.9 H, MCHC 35.3, RDW Std Deviation 56.4 H, RDW Coeff of [place] 15.0 H, Plt Count 109 L , MPV 9.4, Immature Gran % (Auto) 0.600, Neut % (Auto) 69.0, Lymph % (Auto) 15.3 L, [place] % (Auto) 12.7 H, Eos % (Auto) 1.8, Baso % (Auto) 0.6, Absolute Neuts (auto) 6.1, Absolute Lymphs (auto) 1.35, Nucleated RBC % 0 03/20/22 13:25: Sodium 133 L, Potassium 5.0, Chloride 100, Carbon Dioxide 24.0, Anion Gap 9, BUN 18, Creatinine 0.79, Estim Creat Clear Calc 43.92, Est GFR (MDRD) Af Amer 93, Est GFR (MDRD) Non-Af 77, BUN/Creatinine Ratio 22.8 H, Glucose 276 H, Calcium 9.1, Total Bilirubin 3.30 H, Direct Bilirubin 2.15 H, AST 36, ALT 36, Alkaline Phosphatase 86, Total Protein 7.1, Albumin 2.4 L, Globulin 4.7 H 03/20/22 13:25: Ammonia 100.0 H 03/20/22 13:25: PT 17.8 H, INR 1.5 03/20/22 15:05: Lactic Acid 3.8 H* Radiology Impression Brain CT 03/20/22 13:01 IMPRESSION: There are no acute intracranial findings. Electronically Signed: David Broderick MD at 15:02 EST , Chest X-Ray 03/20/22 13:01 IMPRESSION: There are no acute findings. Electronically Signed: David Broderick MD at 14:52 EST , Assessment & Plan Assessment/Plan (1) Hepatic encephalopathy: PLAN: Continue with lactulose Avoid potentiating medications Concern for compliance at home (2) Acute UTI: PLAN: Continue with ceftriaxone Follow-up urine culture (3) History of cirrhosis: PLAN: Patient was to follow-up at [facility] this week for evaluation. The daughter was very concerned about patient missing these appointments. I I told her that she could certainly be transferred up to [facility] but they may not have any beds readily available and they may not proceed with her transplant evaluation to her since she is not in their for transplant evaluation. I recommended that she stay here and let us work with her and then follow-up with [facility] as outpatient. She was agreeable to that and staying here. Hold diuretics (4) Lactic acidosis: PLAN: Unclear significance Continue with IV fluids Hold diuretics for now PLAN: Plan Chronic conditions * Diabetes most type II: Insulin-dependent. Continue with glargine, prandial insulin and sliding scale insulin VTE prophylaxis with SCDs. Avoiding chemical prophylaxis patient's INR is 1.5 Charges/Coding Visit Charges Inpatient E&M: 10647 Init Hosp L2
[2022-03-20 19:17] LABS: Reflex Lactate? Y
[2022-03-20] MEDS: 0.9% Normal Saline 1,000 ML 150 ML IV (20:20)
[2022-03-20] MEDS: 0.9% Saline Lock 10 ML Syringe IV (20:20)
[2022-03-20] MEDS: Insulin Lispro 100 UNIT/ML INSULN.PEN 8 UNIT SC (20:31)
[2022-03-20] MEDS: Insulin Glargine-YFGN 100 UNIT/ML Pen 28 UNIT SC (20:33)
[2022-03-20] MEDS: Carvedilol 3.125 MG TABLET PO (20:46)
[2022-03-20 21:26] LABS: Bedside Glucose 260 mg/dL (74-106)
[2022-03-21] MEDS: 0.9% Saline Lock 10 ML Syringe IV (02:44)
[2022-03-21 06:01] LABS: Absolute Lymphocyte Count 1.33 X10^3/uL (0.83-4.51); Absolute Neutrophil Count 4.4 X10^3/uL (2.0-7.7); Basophil# 0.04 X10^3/uL; Basophil% 0.6 % (0-1); Eosinophils% 2.9 % (0-5); Hematocrit 31.1 % (37-47); Hemoglobin 10.7 g/dL (12.0-15.0); Lymphocyte # 1.33 X10^3/ul (0.83-4.51); Lymphocyte % 19.3 % (19-41); Mean Corp Hgb Conc 34.4 g/dL (32-36); Mean Corpuscular Hgb 35.2 pg (27.0-32.0); Mean Corpuscular Volume 102.3 fL (81-99); Mean Platelet Vol. 10.1 fl (6.2-12.0); Monocyte# 0.85 X10^3/uL; Monocyte% 12.3 % (0-10); NRBC Flagged by Analyzer 0 % (0-5); Neutrophil # 4.44 X10^3/uL (2.7-7.7); Neutrophil % 64.5 % (47-70); POSITIVE COUNT YES; Platelet Count 80 K/mm3 (150-450); RBC Distribution Width CV 15.4 % (11.6-14.6); Red Blood Count 3.04 M/mm3 (4.2-5.4); White Blood Count 6.9 K/mm3 (4.4-11.0)
[2022-03-21 06:04] LABS: Differential Indicated SCAN CRITERIA MET
[2022-03-21 06:30] LABS: ALB/GLOB Ratio 0.5 RATIO (0.9-2.4); AST(SGOT) 32 U/L (15-37); Alanine Aminotransfer ALT/SGPT 28 U/L (13-56); Albumin, Serum 1.8 g/dL (3.2-5.0); Alkaline Phosphatase 61 U/L (45-117); Anion Gap 8 (5-15); BUN 15 mg/dL (7-18); BUN/Creat Ratio 25.9 RATIO (10-20); Calcium,Total 7.6 mg/dL (8.5-10.1); Chloride 109 mmol/L (98-107); Creatinine, Serum 0.58 mg/dL (0.55-1.02); EST Glomerular Filtration Rate 109 mL/min (>60); Est Glom Filt Rate - Afr Amer 132 mL/min (>60); Estimated Creatinine Clearance 43.92 ml/min; Globulin 3.8 g/dL (2.2-4.2); Glucose 169 mg/dL (74-106); Potassium 3.7 mmol/L (3.5-5.1); Protein, Total 5.6 g/dL (6.4-8.2); Sodium Level 137 mmol/L (136-145)
[2022-03-21 06:35] VITALS: BP 107/55; PULSE 81; RESP 16; TEMP 36.8; O2SAT 97
[2022-03-21 06:38] VITALS: BP 107/55; PULSE 81; RESP 16; TEMP 36.8; O2SAT 97
[2022-03-21] MEDS: Lactulose 20 GM/30 ML UDC PO ×2 (06:38→13:25)
[2022-03-21 07:07] LABS: Anisocytosis 1+; Macrocytosis RARE; Platelet Estimate MOD DEC (ADEQ)
[2022-03-21] MEDS: Pantoprazole Sodium 40 MG Tablet PO (07:43)
[2022-03-21] MEDS: Carvedilol 3.125 MG TABLET PO ×2 (07:43→17:22)
[2022-03-21] MEDS: Cholecalciferol (VIT D3) 25 MCG TABLET (1,000 UNITS) PO (07:43)
[2022-03-21] MEDS: Ascorbic Acid 500 MG Tablet PO (07:43)
[2022-03-21] MEDS: Ferrous Sulfate 325 MG Tablet PO (07:43)
[2022-03-21] MEDS: Magnesium Chloride 64 MG Delay Rel.Tablet PO (07:43)
[2022-03-21] MEDS: Calcium (Elemental) 500 MG Tablet 1000 MG PO (07:46)
[2022-03-21 08:00] VITALS: BP 113/69; PULSE 76; RESP 18; TEMP 36.7; O2SAT 97
[2022-03-21] MEDS: Insulin Lispro 100 UNIT/ML INSULN.PEN 8 UNIT SC ×3 (08:02→17:22)
[2022-03-21 08:15] LABS: Bedside Glucose 134 mg/dL (74-106)
[2022-03-21 09:19] VITALS: BP 113/69; PULSE 76; RESP 18; TEMP 36.7; O2SAT 97
[2022-03-21] MEDS: Ceftriaxone 1 GM/50 ML BAG IV (09:38)
--- NOTE | 2022-03-21 10:00 | DCINST_ITS ---
Discharge Instructions Diet Discharge Diet: 2000 mg Sodium Diet Activity Discharge Activity: Return to Normal Activity Dressing / Incision Call your doctor if you observe: Fever of 101 or Higher, Coldness, Increased Pain, Numbness or Tingling, Change in Color, Inability to urinate, Inability to have a bowel movement, Using more than 1 pad per hour, Shortness of breath, Dizziness, Fainting spells, Swelling in the ankles, Chest pain, Prolonged hiccupping, Increased palpitations (irregular heartbeat), Calf discomfort and Uncontrolled pain Follow Up Care Test Results: Test results from this visit will be discussed in further detail at your follow- up appointment, if applicable. Discharge Plan Admission Admit Date/Time: 03/20/22 16:16 Primary Reason for Your Visit: Hepatic encephalopathy, cirrhosis etiology unclear Attending Provider: Stew Thompson Primary Care Provider: Michael Lawson Consulting Providers: Baljit Cavanaugh Instructions Additional Instructions / Restrictions: Patient had appointment in [facility] for transplant evaluation today. Her daughter, Ms. Alexander is the caregiver and she will reschedule the [facility] appointment. Patient got the Xifaxan medication in her mail. Her GI doctor is Dr. Trevizo. Advised lactulose dosing to have a goal of 2-3 soft bowel movements. Xifaxan 550 mg twice daily. Discharge Orders/Prescriptions Prescriptions: New cephalexin 500 mg capsule 500 mg PO TID Qty: 15 0RF Continued pantoprazole 20 MG tablet 40 mg PO DAILY spironolactone 100 mg Tablet 100 mg PO DAILY carvedilol 3.125 mg Tablet 3.125 mg PO BID furosemide 40 mg tablet 40 mg PO DAILY calcium 600 mg Capsule 600 mg PO BID ascorbic acid (vitamin C) [Vitamin C] 500 mg Tablet 500 mg PO DAILY magnesium 250 mg Tablet 250 mg PO DAILY iron 40 mg Capsule 45 mg PO DAILY cholecalciferol (vitamin D3) [Vitamin D3] 25 mcg (1,000 unit) Capsule 500 mcg PO BID insulin aspart U-100 [Novolog Flexpen U-100 Insulin] 100 unit/mL (3 mL) insulin pen 8 unit SUBCUT TIDCM insulin aspart U-100 [Novolog Flexpen U-100 Insulin] 100 unit/mL (3 mL) insulin pen See Protocol SUBCUT TIDCM Protocol: 4. Sliding Scale Insulin High-Med Dosing Condition: 150-199 mg/dl = 2 units Condition: 200-259 mg/dl = 4 units Condition: 260-324 mg/dl = 6 units Condition: 325-374 mg/dl = 8 units Condition: 375-409 mg/dl = 10 units Condition: 410-449 mg/dl = 11 units Condition: Greater than 449 call physician Protocol Text: - Use for Total Daily Dose of Insulin 56-80 units - Patient who are insulin resistant or septic HIGH MEDIUM DOSING ALGORITHM insulin glargine [Basaglar KwikPen U-100 Insulin] 100 unit/mL (3 mL) insulin pen 28 unit SUBCUT QHS lactulose 20 gram/30 mL solution 20 g PO TID Qty: 3000 2RF Rx Instructions: Titrate to 2-3 soft stools daily Referrals / Follow Up: Michael Lawson MD [Primary Care Provider] - Within 2 Weeks Disposition Disposition (needs filled in before D/C Order can be placed): Home, Self Care
--- NOTE | 2022-03-21 11:04 | DS.PCM_ITS ---
Providers Date of Admission: 03/20/22 Date of Discharge: 03/21/22 Primary Care Physician: Dr. Michael Lawson MD Reason For Visit: HEPATIC ENCEPHALOPATHY Diagnosis Discharge Diagnosis (1) Hepatic encephalopathy: Status: Acute Code(s): K76.82 - Hepatic encephalopathy (2) Acute UTI: Status: Acute Code(s): N39.0 - Urinary tract infection, site not specified (3) History of cirrhosis: Status: Acute Code(s): Z87.19 - Personal history of other diseases of the digestive system (4) Lactic acidosis: Status: Acute Code(s): E87.20 - Acidosis, unspecified Medications at Discharge Home Medications pantoprazole 20 mg tablet,delayed release 40 mg PO DAILY gerd 03/21/14 carvedilol 3.125 mg tablet 3.125 mg PO BID bp 05/24/21 spironolactone 100 mg tablet 100 mg PO DAILY bp 05/24/21 ascorbic acid (vitamin C) 500 mg tablet (Vitamin C) 500 mg PO DAILY vitamin 03/20/22 calcium 600 mg capsule 600 mg PO BID supplement 03/20/22 cholecalciferol (vitamin D3) 25 mcg (1,000 unit) capsule (Vitamin D3) 500 mcg PO BID supplement 03/20/22 furosemide 40 mg tablet 40 mg PO DAILY water pill 03/20/22 insulin aspart U-100 100 unit/mL (3 mL) subcutaneous pen (Novolog Flexpen U-100 Insulin aspart) 8 unit subcut TIDCM dm 03/20/22 insulin aspart U-100 100 unit/mL (3 mL) subcutaneous pen (Novolog Flexpen U-100 Insulin aspart) See Protocol subcut TIDCM dm 03/20/22 insulin glargine 100 unit/mL (3 mL) subcutaneous pen (Basaglar KwikPen U-100 Insulin) 28 unit subcut QHS dm 03/20/22 iron 40 mg capsule 45 mg PO DAILY supplement 03/20/22 magnesium 250 mg tablet 250 mg PO DAILY suplement 03/20/22 cephalexin 500 mg capsule 500 mg PO TID #15 caps 03/21/22 lactulose 20 gram/30 mL oral solution 20 g (30 mL) PO TID #3,000 mL 03/21/22 Hospital Course Summary of Care Provided Hospital Course: This is 71-year-old female with history of cirrhosis of idiopathic cause was admitted for confusion, unawareness and disorientation suggestive of acute hepatic encephalopathy. Patient has history of decompensated cirrhosis with ascites, last ultrasound-guided paracentesis on 1122. At that time 79 mL clear straw-colored fluid drained. Fluid was not sent for laboratories culture. [facility] Ammonia level is found to be elevated lactic acid 3.8. Patient was treated with IV fluid and ceftriaxone for empiric UTI. 1. Acute hepatic encephalopathy without coma due to decompensated cirrhosis: Patient follows [facility] and had appointment today which her daughter will reschedule in 1 or 2 days. Patient was treated with IV fluid, lactulose. She also got Xifaxan in her mail and advised 550 mg twice daily. Acute encephalopathy resolved. Exact etiology unclear. Avoid benzodiazepines or sedative medications. Last ascites fluid was not sent for analytical studies therefore SBP cannot be ruled out. Patient follows tactical/mobile watch officer Dr. Trevizo. Continue furosemide and spironolactone, vitamin D and calcium supplemen t. Patient also on carvedilol. 2. Partially treated UTI: Patient denies burning micturition but her urine was dark and thick. Patient was confused therefore empirically treated with IV ceftriaxone. UA WBC 25-50 cells, LE positive but nitrite negative. Urine culture shows GNR lactose physicist solid state [id number] colonies. Patient empirically given a prescription for Keflex 500 mg 3 times daily for 5 more days to complete a total course of 7 days. Blood culture x2 still pending. Patient's daughter had concern that there is small kid in home therefore RSV and flu ordered. Patient had full dose of COVID vaccination and influenza. 3. Diabetes mellitus type 2: Continue insulin glargine and aspart. Glucose fluctuates between 130-250. Patient has other comorbidities which include anemia of chronic disease Discharge medication reconciliation done. Discharge follow-up instructions completed. Discharge process discussed with the patient and all questions were answered to patient's satisfaction. Total time spent, exact 35 minutes on discharge meds reconciliation, examination, coordination of care with nurses and ancillary staff, review of imaging and blood test and discussion with the patient on follow-up instructions. Microbiology Past 72 Hours 03/20/22 13:10 Urine, Clean Catch Urine Culture - Preliminary GNR lactose physicist solid state Laboratory Results 03/20/22 20:30: POC Glucose 260 H 03/20/22 20:43: Lactic Acid 3.0 H* 03/21/22 04:39: WBC 6.9, RBC 3.04 L, Hgb 10.7 L, Hct 31.1 L, MCV 102.3 H, MCH 35.2 H, MCHC 34.4, RDW Std Deviation 59.0 H, RDW Coeff of Kwesi 15.4 H, Plt Count 80 L, MPV 10.1, Immature Gran % (Auto) 0.400, Neut % (Auto) 64.5, Lymph % (Auto) 19.3, Sibley % (Auto) 12.3 H, Eos % (Auto) 2.9, Baso % (Auto) 0.6, Absolute Neuts (auto) 4.4, Absolute Lymphs (auto) 1.33, Nucleated RBC % 0, Platelet Estimate MOD DEC, Anisocytosis 1+, Macrocytosis RARE 03/21/22 04:39: Sodium 137, Potassium 3.7, Chloride 109 H, Carbon Dioxide 20.0 L , Anion Gap 8, BUN 15, Creatinine 0.58, Estim Creat Clear Calc 43.92, Est GFR (MDRD) Af Amer 132, Est GFR (MDRD) Non-Af 109, BUN/Creatinine Ratio 25.9 H, Glucose 169 H, Calcium 7.6 L, Total Bilirubin 3.40 H, AST 32, ALT 28, Alkaline Phosphatase 61, Total Protein 5.6 L, Albumin 1.8 L, Globulin 3.8, Albumin/Globulin Ratio 0.5 L 03/21/22 07:48: POC Glucose 134 H 03/21/22 13:24: POC Glucose 282 H Physical Exam Narrative Seen and examined. Patient is at her baseline. Answers all questions appropriately. I also discussed with son near the bedside and her power of social human services assistants for health, daughter Ms. Alexander over the phone. Physical exam General: Alert, Oriented x3, Cooperative HEENT: Atraumatic, PERRLA, EOMI, Normocephalic Oral: Oral mucosa moist. No Gingival or Mucosal Lesions/ Ulcerations Neck: Supple, No JVD, Negative Carotid Bruits Lungs: Air entry diminished in bilateral lung bases. No crepitation/rhonchi Cardiovascular: Regular rate, Regular Rhythm, Normal S1, Normal S2, No murmurs Abdomen: Bowel Sounds Present, Soft, Non Tender, Non-Distended. No palpable ascites. : No renal angle tenderness. No suprapubic tenderness. Extremities: No edema, Capillary Refill Less than 3 Seconds Skin: No rashes, No breakdown Musculoskeletal: No Tenderness to Palpation of Joints or Extremities. ROM full. Neurological: Cranial nerves II-XII grossly intact, DTR 2+/4 and Symmetrical, Neuro grossly intact Psych/Mental Status: Normal Affect, Appropriate. Weight / BMI Weight Weight: 142 lb Body Mass Index (BMI) 25.1 ABG / Lab / Microbiology Data Result Diagrams: 03/21/22 04:39 03/21/22 04:39 Laboratory: Laboratory Results - last 24 hr 03/20/22 13:10: Urine Color Yellow, Urine Clarity Cloudy, Urine pH 6.0, Ur Specific [place] 1.020, Urine Protein 15 H, Urine Glucose (UA) Normal, Urine Ketones 5 H, Urine Occult Blood 50 H, Urine Nitrite Negative, Urine Bilirubin Negative, Urine Urobilinogen 4 H, Ur Leukocyte Esterase 100 H, Urine RBC 0 SEEN, Urine WBC 25-50 SEEN, Ur Squamous Epith Cells 0 SEEN, Urine Bacteria 4+, Urine Mucus 0 SEEN 03/20/22 13:25: WBC 8.8, RBC 3.57 L, Hgb 12.8, Hct 36.3 L, MCV 101.7 H, MCH 35.9 H, MCHC 35.3, RDW Std Deviation 56.4 H, RDW Coeff of Kwesi 15.0 H, Plt Count 109 L , MPV 9.4, Immature Gran % (Auto) 0.600, Neut % (Auto) 69.0, Lymph % (Auto) 15.3 L, Sibley % (Auto) 12.7 H, Eos % (Auto) 1.8, Baso % (Auto) 0.6, Absolute Neuts (auto) 6.1, Absolute Lymphs (auto) 1.35, Nucleated RBC % 0 03/20/22 13:25: Sodium 133 L, Potassium 5.0, Chloride 100, Carbon Dioxide 24.0, Anion Gap 9, BUN 18, Creatinine 0.79, Estim Creat Clear Calc 43.92, Est GFR (MDRD) Af Amer 93, Est GFR (MDRD) Non-Af 77, BUN/Creatinine Ratio 22.8 H, Glucose 276 H, Calcium 9.1, Total Bilirubin 3.30 H, Direct Bilirubin 2.15 H, AST 36, ALT 36, Alkaline Phosphatase 86, Total Protein 7.1, Albumin 2.4 L, Globulin 4.7 H 03/20/22 13:25: Ammonia 100.0 H 03/20/22 13:25: PT 17.8 H, INR 1.5 03/20/22 15:05: Lactic Acid 3.8 H* 03/20/22 20:30: POC Glucose 260 H 03/20/22 20:43: Lactic Acid 3.0 H* 03/21/22 04:39: WBC 6.9, RBC 3.04 L, Hgb 10.7 L, Hct 31.1 L, MCV 102.3 H, MCH 35.2 H, MCHC 34.4, RDW Std Deviation 59.0 H, RDW Coeff of Kwesi 15.4 H, Plt Count 80 L, MPV 10.1, Immature Gran % (Auto) 0.400, Neut % (Auto) 64.5, Lymph % (Auto) 19.3, Sibley % (Auto) 12.3 H, Eos % (Auto) 2.9, Baso % (Auto) 0.6, Absolute Neuts (auto) 4.4, Absolute Lymphs (auto) 1.33, Nucleated RBC % 0, Platelet Estimate MOD DEC, Anisocytosis 1+, Macrocytosis RARE 03/21/22 04:39: Sodium 137, Potassium 3.7, Chloride 109 H, Carbon Dioxide 20.0 L , Anion Gap 8, BUN 15, Creatinine 0.58, Estim Creat Clear Calc 43.92, Est GFR (MDRD) Af Amer 132, Est GFR (MDRD) Non-Af 109, BUN/Creatinine Ratio 25.9 H, Glucose 169 H, Calcium 7.6 L, Total Bilirubin 3.40 H, AST 32, ALT 28, Alkaline Phosphatase 61, Total Protein 5.6 L, Albumin 1.8 L, Globulin 3.8, Albumin/Globulin Ratio 0.5 L 03/21/22 07:48: POC Glucose 134 H Radiography Diagnostic Testing: Radiology Impression Brain CT 03/20/22 13:01 IMPRESSION: There are no acute intracranial findings. Electronically Signed: David Broderick MD at 15:02 EST Reading Location ID and State: [facility] / [place] , Service support , Chest X-Ray 03/20/22 13:01 IMPRESSION: There are no acute findings. Electronically Signed: David Broderick MD at 14:52 EST Reading Location ID and State: [facility] / [place] , Service support , D/C Instructions Discharge Diet: 2000 mg Sodium Diet Call your doctor if you observe: Fever of 101 or Higher, Coldness, Increased Pain, Numbness or Tingling, Change in Color, Inability to urinate, Inability to have a bowel movement, Using more than 1 pad per hour, Shortness of breath, Dizziness, Fainting spells, Swelling in the ankles, Chest pain, Prolonged hiccupping, Increased palpitations (irregular heartbeat), Calf discomfort and Uncontrolled pain Meaningful Use Info Meaningful Use Diagnoses (Choose all that apply): None applicable Discharge Plan Admission Admit Date/Time: 03/20/22 16:16 Primary Reason for Your Visit: Hepatic encephalopathy, cirrhosis etiology unclear Attending Provider: Stew Thompson Primary Care Provider: Michael Lawson Consulting Providers: Baljit Cavanaugh Instructions Additional Instructions / Restrictions: Patient had appointment in [facility] for transplant evaluation today. Her daughter, Ms. Alexander is the caregiver and she will reschedule the [facility] appointment. Patient got the Xifaxan medication in her mail. Her GI doctor is Dr. Trevizo. Advised lactulose dosing to have a goal of 2-3 soft bowel movements. Xifaxan 550 mg twice daily. Discharge Orders/Prescriptions Prescriptions: New cephalexin 500 mg capsule 500 mg PO TID Qty: 15 0RF Continued pantoprazole 20 MG tablet 40 mg PO DAILY spironolactone 100 mg Tablet 100 mg PO DAILY carvedilol 3.125 mg Tablet 3.125 mg PO BID furosemide 40 mg tablet 40 mg PO DAILY calcium 600 mg Capsule 600 mg PO BID ascorbic acid (vitamin C) [Vitamin C] 500 mg Tablet 500 mg PO DAILY magnesium 250 mg Tablet 250 mg PO DAILY iron 40 mg Capsule 45 mg PO DAILY cholecalciferol (vitamin D3) [Vitamin D3] 25 mcg (1,000 unit) Capsule 500 mcg PO BID insulin aspart U-100 [Novolog Flexpen U-100 Insulin] 100 unit/mL (3 mL) insulin pen 8 unit SUBCUT TIDCM insulin aspart U-100 [Novolog Flexpen U-100 Insulin] 100 unit/mL (3 mL) insulin pen See Protocol SUBCUT TIDCM Protocol: 4. Sliding Scale Insulin High-Med Dosing Condition: 150-199 mg/dl = 2 units Condition: 200-259 mg/dl = 4 units Condition: 260-324 mg/dl = 6 units Condition: 325-374 mg/dl = 8 units Condition: 375-409 mg/dl = 10 units Condition: 410-449 mg/dl = 11 units Condition: Greater than 449 call physician Protocol Text: - Use for Total Daily Dose of Insulin 56-80 units - Patient who are insulin resistant or septic HIGH MEDIUM DOSING ALGORITHM insulin glargine [Basaglar KwikPen U-100 Insulin] 100 unit/mL (3 mL) insulin pen 28 unit SUBCUT QHS lactulose 20 gram/30 mL solution 20 g PO TID Qty: 3000 2RF Rx Instructions: Titrate to 2-3 soft stools daily Referrals / Follow Up: Michael Lawson MD [Primary Care Provider] - Within 2 Weeks Disposition Disposition (needs filled in before D/C Order can be placed): Home, Self Care Charges/Coding Addendum Addendum: Patient was admitted as inpatient as for dialysis hepatic encephalopathy without coma due to decompensated cirrhosis but was discharged earlier because of sooner recovery than expected at time of admission. She responded very quickly. She is alert and oriented x3. Visit Charges Inpatient E&M: 33391 Disch Hosp
--- NOTE | 2022-03-21 11:35 | PHA.DC.MC ---
Pharmacy Service has performed discharge medication reconciliation and counseling for this patient. 1. CEPHALEXIN 500MG PO TID X 5 DAYS The patient's discharge medication list was reviewed for discrepancies and discrepancies were resolved. Home Medications pantoprazole 20 mg tablet,delayed release 40 mg PO DAILY gerd 03/21/14 carvedilol 3.125 mg tablet 3.125 mg PO BID bp 05/24/21 spironolactone 100 mg tablet 100 mg PO DAILY bp 05/24/21 ascorbic acid (vitamin C) 500 mg tablet (Vitamin C) 500 mg PO DAILY vitamin 03/20/22 calcium 600 mg capsule 600 mg PO BID supplement 03/20/22 cholecalciferol (vitamin D3) 25 mcg (1,000 unit) capsule (Vitamin D3) 500 mcg PO BID supplement 03/20/22 furosemide 40 mg tablet 40 mg PO DAILY water pill 03/20/22 insulin aspart U-100 100 unit/mL (3 mL) subcutaneous pen (Novolog Flexpen U-100 Insulin aspart) 8 unit subcut TIDCM dm 03/20/22 insulin aspart U-100 100 unit/mL (3 mL) subcutaneous pen (Novolog Flexpen U-100 Insulin aspart) See Protocol subcut TIDCM dm 03/20/22 insulin glargine 100 unit/mL (3 mL) subcutaneous pen (Basaglar KwikPen U-100 Insulin) 28 unit subcut QHS dm 03/20/22 iron 40 mg capsule 45 mg PO DAILY supplement 03/20/22 magnesium 250 mg tablet 250 mg PO DAILY suplement 03/20/22 cephalexin 500 mg capsule 500 mg PO TID #15 caps 03/21/22 lactulose 20 gram/30 mL oral solution 20 g (30 mL) PO TID #3,000 mL 03/21/22 The patient was counseled on the following discharge medications and changes in medications for homegoing were reviewed. The Reason for Use, instructions for use, and potential side effects were reviewed for all new medications. The patient's questions regarding all of their medications were answered. The patient was able to verbally demonstrate an understanding of their discharge medications. Patient counseled by pharmacy customer care specialistNicol.
--- NOTE | 2022-03-21 11:45 | CASEMGMT ---
JEANNIE CARUSO IRRIGATION TEACHER CM to room to meet with patient for initial transition planning/care coordination assessment. JEANNIE CARUSO introduced self and role at [facility]. Pt voices understanding and consents to assessment at this time. Pt resting in bed in no distress at this time. Pt is A/O at this time and answers all questions appropriately. Care providers, pharmacy, and demographics verified/updated at this time. PCP: Renny Specialists: ROLANDO Anguiano. Pt states she just started going to [facility] for testing for possible liver transplant. Preferred Pharmacy: [facility] Insurance: [facility] A/B, [place] Prescription Benefit:?[employer] Living Will/HPOA: dtrCatherine, is HCPOA. Son, Mumtaz is 1st alternative. LNOK: 6 children. Living Arrangements: Pt lives in 1.5 story home and states bath and bedroom on 2nd story. She states she is able to to the stairs as they have handrails on both sides and she takes them slowly. States she could do FFSU, if needed. Son does stay with her but is rarely home/able to help. Pt is independent with ADL's and manages her own medications and able to prepare her own meals. DtrCatherine, tries to go w/her to most appts. Sister help w/groceries, if needed. Pt states she plans to stay w/her dtr, Catherine, @ discharge for awhile. She states she has appts for a couple days @ [facility] starting 03/23 and Catherine is going to go up there with her for a couple of days. Transportation: Family DME: Pt has the following DME: 4 prong cane, straight cane, walker, walk-in shower, grab bars, shower chair, wire preparation machine tender, and functioning glucometer w/supplies. Pt states she has all insulin and medications needed. Pt states no need for any further DME. SNF/HHC: No hx of SNF, but has had [facility] HHC in the past. Pt declines wanting HHC @ discharge, stating, I don't need that right now. Pt made aware, if she decides once she gets home that she would HHC, to discuss this w/her PCP. She voices understanding. Pt states no concerns with going home at time of discharge. Pt is retired. Pt states no further concerns/needs. CM to follow for any further discharge planning/needs. Advised pt to ask for CM if any further questions/concerns/needs arise, voices understanding. Plan: Home w/family support and discharge plans in place. Otto CARLISLEN RN CM
[2022-03-21] MEDS: Insulin Lispro 100 UNIT/ML INSULN.PEN SC ×2 (13:26→17:23)
[2022-03-21 13:50] LABS: Bedside Glucose 282 mg/dL (74-106)
[2022-03-21 15:00] VITALS: BP 105/64; PULSE 72; RESP 18; TEMP 36.9; O2SAT 98
--- NOTE | 2022-03-21 16:50 | CHAPLAIN ---
Type of Pastoral Visit _x__ Initial Visit ___ Follow-up Visit ___ On-call Visit ___ General Patient Visit ___ Spiritual Assessment ___ Family Conference ___ Bereavement ___ Rapid Response ___ Code Blue ___ Other (describe below) Pastoral Care Referral From _x__ Patient ___ Family ___ Nurse ___ Physician ___ Residential Advisor ___ Front Desk Coordinator ___ Other (describe below) Sacrament/Intervention _x__ Active listening ___ Anointing ___ Scientologist ___ Bereavement ___ Communion _x__ Lissette exploration ___ ___ Life review _x__ Prayer ___ Reconciliation ___ Sacrament of Sick _x__ Supportive presence ___ Wedding ___ Other (describe below) Pastoral Comments patient is talkative and expresses her feelings and several important questions about lissette, God, and reasons for her illness; listening and assistance with processing those thoughts; giving pt time to talk and hearing her concerns; prayer was requested; pt states that she was able to remember things about her lissette during the conversation that she had forgotten and now finds helpful again
[2022-03-21 17:17] VITALS: BP 105/64; PULSE 72; RESP 18; TEMP 36.9; O2SAT 98
[2022-03-21 17:45] LABS: Bedside Glucose 210 mg/dL (74-106)
== END 2022-03-21 18:00 | disposition home or self-care (01) | DRG 442 ==
LOC: ED 16:30 → MS3 16:36
PROVIDERS: Physician Assistant; Emergency Provider Emergency Medicine; PCP Family Medicine; Visit Provider Internal Medicine
DX: K76.82 Hepatic encephalopathy (principal); N39.0 Urinary tract infection, site not specified; G93.40 Encephalopathy, unspecified; E87.20 Acidosis, unspecified; D63.8 Anemia in other chronic diseases classified elsewhere; E11.9 Type 2 diabetes mellitus without complications; Z79.4 Long term (current) use of insulin; K74.60 Unspecified cirrhosis of liver; I10 Essential (primary) hypertension; Z87.19 Personal history of other diseases of the digestive system
CPT/HCPCS: 36415; 70450; 71045; 80048; 80053; 80076; 81001; 82140; 82962; 83605; 85025; 85610; 87040; 87077; 87086; 87088; 87186; 87632; 93005; 99251; 99285; J7030; A4216; G0463

== ENCOUNTER → 2022-04-05 | Outpatient (CLI) | payer MEDICARE, BC, SELFPAY ==
[2022-04-05 14:55] LABS: Anion Gap 7 (5-15); BUN 22 mg/dL (7-18); BUN/Creat Ratio 24.4 RATIO (10-20); Calcium,Total 8.6 mg/dL (8.5-10.1); Chloride 100 mmol/L (98-107); EST Glomerular Filtration Rate 66 mL/min (>60); Est Glom Filt Rate - Afr Amer 80 mL/min (>60); Glucose 91 mg/dL (74-106); Potassium 4.7 mmol/L (3.5-5.1); Sodium Level 132 mmol/L (136-145)
== END | disposition home or self-care (01) ==
LOC: MTLAB 10:51
PROVIDERS: PCP Family Medicine; Referring Provider Internal Medicine Gastroenterology; Visit Provider Internal Medicine Gastroenterology
DX: K74.60 Unspecified cirrhosis of liver (principal); R18.8 Other ascites; K76.82 Hepatic encephalopathy
CPT/HCPCS: 36415; 80048; 87633

== ENCOUNTER → 2022-05-17 | Outpatient (CLI) | payer MEDICARE, BC, SELFPAY ==
--- NOTE | 2022-05-17 11:40 | BRBX_PTH ---
PATIENT: KARL CONCEPCION LOC: [facility] U#:[id number] AGE/SX: 71/F ROOM: RE05/17/[address]: Dr. Violetta Harmon MD : [id number] BED: DIS: 05/17/2022 SPEC #: [id number] RECD: 05/17/22 12:31 STATUS: MINA RESulema #: [id number] THONY: 05/17/22 11:[address]: Violetta Harmon DEPT: SURGICAL PATHOLOGY RECD BY: Beba Cotto ENTERED: 05/17/22 13:15 SP TYPE: BREAST BX OTHR DR: Dr. Michael Lawson MD Tissues: Left breast, NOS Procedures: Surgery Specimen Level IV HEADER OPERATION: Left breast stereotactic biopsy PRE-OP DIAGNOSIS: Left breast punctate calcifications upper outer quadrant TISSUE SUBMITTED: Left breast tissue ISCHEMIC TIME: 1 minute FIXATION TIME: 8 hours MICROSCOPIC DIAGNOSIS Left breast, stereotactic core biopsy: Densely hyalinized and collagenized tissue with mild focal dystrophic banal microcalcifications. Calcifications of vessel wright. No evidence of malignancy. AM:konstantin 05/18/2022 MICROSCOPIC DESCRIPTION Slides are reviewed. GROSS DESCRIPTION Received in fixative is one container labeled with the patient's name and designated left breast. The specimen consists of multiple elongated fragments of de la fuente-yellow fibroadipose tissue that in aggregate measure 3 x 2 x 0.3 cm. The entire specimen is submitted in two cassettes. / SJ:konstantin 05/17/2022 TC:5 CPT: 90069
--- NOTE | 2022-05-17 12:06 | PCM.OPRPT ---
Report of Operation Date of Procedure: 05/17/22 Pre-Operative Diagnosis: abnormal calcifications of left breast mammograms Post-Operative Diagnosis: same Surgery/Procedure Performed:: left stereotactic breast biopsy Surgeon: Violetta Harmon Type of Anesthesia: Local Specimen's removed: left breast tissue Estimated Blood Loss (mL): minimal Description of Procedure: After informed consent was given, the patient was brought into the Breast Biopsy suite. Appropriate time out protocol was followed. The patient was placed in the prone position on the stereotactic biopsy table. The patient?s left breast was then placed in the opening at the head of the biopsy table. A general activities therapist compression mammogram was then obtained in the CC view. The suspicious radiological lesion was thus identified. Stereo pictures of the lesion were then taken for XYZ coordinates. The Mammotome biopsy stylus was then positioned where it would be entering into the patient?s breast. The skin at this site was then cleansed with a surgical skin preparation. The skin and subcutaneous tissues at this site were then infiltrated with 1% xylocaine. A small skin incision was made with an 11 blade scalpel. The biopsy stylus was then positioned into the patient?s breast at the proper coordinates of depth. Using the Mammotome vacuum-assist device, several core samples of breast tissue were obtained. A specimen mammogram was the obtained. It revealed that the abnormal calcifications were within the specimen. I reviewed this personally and concluded that the tissue sampling was adequate. A hemostatic marker clip was then placed into the biopsy cavity and a general activities therapist film revealed that it was properly deployed. The patient was then placed in the supine position and pressure was applied to the breast until no active bleeding was noted. A nylon suture was applied to reapproximate the skin. A unilateral mammogram in the CC and MLO view were then taken which revealed that the marker clip was in the same area as the previous suspicious lesion. The patient tolerated the procedure well and was discharged from the Breast Biopsy suite in good condition. Complications none noted
== END | disposition home or self-care (01) ==
LOC: BIRAD 10:10
PROVIDERS: PCP Family Medicine; Visit Provider Surgery
DX: R92.0 Mammographic microcalcification found on diagnostic imaging of breast (principal); K74.69 Other cirrhosis of liver; E11.65 Type 2 diabetes mellitus with hyperglycemia; D68.4 Acquired coagulation factor deficiency; Z79.4 Long term (current) use of insulin; I10 Essential (primary) hypertension; E66.9 Obesity, unspecified; Z68.24 Body mass index [BMI] 24.0-24.9, adult; Z79.899 Other long term (current) drug therapy
CPT/HCPCS: 19081; 88305; J7050

== ENCOUNTER → 2022-05-24 | Outpatient (CLI) | payer MEDICARE, BC, SELFPAY ==
[2022-05-24 15:53] LABS: Anion Gap 5 (5-15); BUN 25 mg/dL (7-18); BUN/Creat Ratio 23.6 RATIO (10-20); Calcium,Total 9.6 mg/dL (8.5-10.1); Chloride 106 mmol/L (98-107); Creatinine, Serum 1.06 mg/dL (0.55-1.02); EST Glomerular Filtration Rate 55 mL/min (>60); Est Glom Filt Rate - Afr Amer 66 mL/min (>60); Glucose 54 mg/dL (74-106); Potassium 5.1 mmol/L (3.5-5.1); Sodium Level 136 mmol/L (136-145)
== END | disposition home or self-care (01) ==
LOC: MTLAB 13:31
PROVIDERS: PCP Family Medicine; Referring Provider Internal Medicine Gastroenterology; Visit Provider Internal Medicine Gastroenterology
DX: K74.60 Unspecified cirrhosis of liver (principal); K76.82 Hepatic encephalopathy; R18.8 Other ascites
CPT/HCPCS: 36415; 80048

== ENCOUNTER 2022-05-28 17:18 | Inpatient (IN) | payer MEDICARE, BC, SELFPAY ==
[2022-05-28 17:21] VITALS: BP 149/82; PULSE 83; RESP 16; TEMP 36.6; O2SAT 99; BMI 24.3
[2022-05-28 17:46] LABS: Absolute Lymphocyte Count 1.46 X10^3/uL (0.83-4.51); Absolute Neutrophil Count 6.5 X10^3/uL (2.0-7.7); Basophil# 0.04 X10^3/uL; Basophil% 0.4 % (0-1); Eosinophil# 0.17 X10^3/uL; Eosinophils% 1.8 % (0-5); Hematocrit 35.1 % (37-47); Hemoglobin 12.6 g/dL (12.0-15.0); Lymphocyte # 1.46 X10^3/ul (0.83-4.51); Lymphocyte % 15.6 % (19-41); Mean Corp Hgb Conc 35.9 g/dL (32-36); Mean Corpuscular Hgb 35.5 pg (27.0-32.0); Mean Corpuscular Volume 98.9 fL (81-99); Mean Platelet Vol. 9.8 fl (6.2-12.0); Monocyte# 1.14 X10^3/uL; Monocyte% 12.2 % (0-10); NRBC Flagged by Analyzer 0 % (0-5); Neutrophil # 6.49 X10^3/uL (2.7-7.7); Neutrophil % 69.6 % (47-70); POSITIVE COUNT YES; Platelet Count 99 K/mm3 (150-450); RBC Distribution Width CV 14.1 % (11.6-14.6); RBC Distribution Width SD 51.6 fl (35.1-43.9); Red Blood Count 3.55 M/mm3 (4.2-5.4); White Blood Count 9.3 K/mm3 (4.4-11.0)
[2022-05-28 17:51] LABS: International Normalized Ratio 1.4; Prothrombin Time (Protime)PT. 16.9 SECONDS (11.7-14.9)
[2022-05-28 18:01] LABS: ALB/GLOB Ratio 0.6 RATIO (0.9-2.4); AST(SGOT) 42 U/L (15-37); Alanine Aminotransfer ALT/SGPT 39 U/L (13-56); Albumin, Serum 2.7 g/dL (3.2-5.0); Alkaline Phosphatase 80 U/L (45-117); Anion Gap 9 (5-15); BUN 30 mg/dL (7-18); BUN/Creat Ratio 28.6 RATIO (10-20); Chloride 109 mmol/L (98-107); Creatinine, Serum 1.05 mg/dL (0.55-1.02); EST Glomerular Filtration Rate 55 mL/min (>60); Est Glom Filt Rate - Afr Amer 67 mL/min (>60); Estimated Creatinine Clearance 41.83 ml/min; Globulin 4.4 g/dL (2.2-4.2); Glucose 143 mg/dL (74-106); Potassium 4.8 mmol/L (3.5-5.1); Protein, Total 7.1 g/dL (6.4-8.2); Sodium Level 138 mmol/L (136-145)
[2022-05-28 18:04] LABS: Differential Indicated SCAN CRITERIA MET
--- NOTE | 2022-05-28 18:15 | RAD_ITS ---
INDICATION: Adventitial breath sounds EXAMINATION/TECHNIQUE: X-RAY - XR Chest 2 Views COMPARISON: 03/20/2020 FINDINGS: LIFE-SUPPORT AND LINES: 1. None HEART AND VESSELS: The cardiac silhouette, pulmonary vasculature have normal appearance. No evidence of congestive failure. LUNGS AND PLEURAL SPACES: Lungs are clear. No focal infiltrate, consolidation or effusions. No evidence of pneumothorax. Shallow inspiration and crowding of bronchovascular markings. MEDIASTINUM AND HILAR REGIONS: No masses adenopathy noted. No areas of calcification. Visualized upper airway is normal in position. BONY ELEMENTS: No acute bony changes noted. RAD/Chest PA and Lateral IMPRESSION: 1. No evidence of acute cardiopulmonary process. Shallow inspiration crowding of bronchovascular markings. Electronically Signed: Meir Lim MD at 18:30 EST ,
[2022-05-28 18:17] LABS: Anisocytosis RARE; Macrocytosis RARE; Platelet Estimate MOD DEC (ADEQ); Red Cell Morphology N CHROM NORMAL (NORM C&C); Toxic Granulation RARE
[2022-05-28 18:30] LABS: Lactic Acid 2.9 mmol/L (0.4-1.9)
--- NOTE | 2022-05-28 19:00 | EDS_ITS ---
HPI History of Present Illness Chief Complaint: Confusion Detail of Chief Complaint: Altered mental status Informant: EMS (EMS left prior to giving verbal report to Nourse or me.) Onset/Context/Timing Onset: Today Context: Sudden Onset Timing: Continuous Quality: Confusion Location: Presents from home Current Severity: Severe Maximum Severity: Severe Worsened by: Unknown Relieved by: Nothing Associated Symptoms Associated Symptoms: Unknown Narrative Narrative: Patient is a 71-year-old woman with history of recent admission for hepatic encephalopathy. Once son arrived he states she was slightly confused this morning. A dose of lactulose was given. She improved. She has subsequently gotten worse. Son states his mother is compliant with medicine. No other history is available. Review of prior admission patient was admitted for hepatic encephalopathy, UTI and had a lactic acidosis. Per old records patient has history of GERD, recurrent urinary tract infections, liver disease with hepatic encephalopathy there is no recent history of pneumonia. The cause of the cirrhosis is unclear. There is a history of insulin-dependent diabetes. Blood sugar was not checked recently to the nurses or my knowledge. Prior similar symptoms: Yes (Hepatic encephalopathy GI) Recent Illness/Hospitalization: Yes (February 2022) [facility] Medical History Acute encephalopathy Anemia Anxiety Carpal tunnel syndrome Cirrhosis Cirrhosis of liver Depression Diabetes Elevated bilirubin GERD (gastroesophageal reflux disease) History of cirrhosis Hyperammonemia Home Medications pantoprazole 20 mg tablet,delayed release 40 mg PO BID gerd 03/21/14 [History Last Taken 05/28/22] carvedilol 3.125 mg tablet 3.125 mg PO BID bp 05/24/21 [History Last Taken 05/28/22] spironolactone 100 mg tablet 100 mg PO BID bp 05/24/21 [History Last Taken 05/28/22] ascorbic acid (vitamin C) 500 mg tablet (Vitamin C) 500 mg PO QHS vitamin 03/20/22 [History Last Taken 03/19/22] calcium 600 mg capsule 600 mg PO BID supplement 03/20/22 [History Last Taken 05/28/22] cholecalciferol (vitamin D3) 25 mcg (1,000 unit) capsule (Vitamin D3) 500 mcg PO BID supplement 03/20/22 [History Last Taken 05/28/22] furosemide 40 mg tablet 40 mg PO DAILY water pill 03/20/22 [History Last Taken 05/28/22] insulin aspart U-100 100 unit/mL (3 mL) subcutaneous pen (Novolog FlexPen U-100 Insulin aspart) 8 unit subcut TIDCM dm 03/20/22 [History Last Taken 05/28/22] insulin aspart U-100 100 unit/mL (3 mL) subcutaneous pen (Novolog FlexPen U-100 Insulin aspart) See Protocol subcut TIDCM dm 03/20/22 [History Last Taken 05/28/22] insulin glargine 100 unit/mL (3 mL) subcutaneous pen (Basaglar KwikPen U-100 Insulin) 40 unit subcut QHS dm 03/20/22 [History Last Taken 03/19/22] iron 40 mg capsule 45 mg PO QHS supplement 03/20/22 [History Last Taken 03/19/22] magnesium 250 mg tablet 250 mg PO QHS suplement 03/20/22 [History Last Taken 03/19/22] lactulose 20 gram/30 mL oral solution 20 g (30 mL) PO TID #3,000 mL 03/21/22 [Rx Last Taken 05/28/22] valacyclovir 1 gram tablet 1 mg PO DAILY PRN PRN blisters 05/28/22 [History Last Taken Unknown] Allergy/AdvReac Type Severity Reaction Status Date / Time No Known Allergies Allergy Verified 03/20/22 12:47 Surgical History H/O thyroidectomy H/O: hysterectomy History of cholecystectomy History of hip replacement Social History household members: family Smoking Status: Never smoker ROS ROS ED Review of Systems ROS Unobtainable: due to mental status EXAM Physical Exam Const Vital Signs: 05/28/22 17:21 Temperature 98 F Temperature Source Temporal Pulse Rate 83 Respiratory Rate 16 Blood Pressure 149/82 H Blood Pressure Mean 104 Pulse Ox 99 Oxygen Delivery Method Room Air Positive well nourished and well developed Constitutional Narrative: Patient took her address when asked her name, date, location. Patient does not know her age. General Appearance ED: well developed and NAD; Negative for cyanotic, diaphoretic or pallor HEENT Reports dry mucous membranes HEENT Narrative: Head is atraumatic normocephalic. Ears normal. TMs normal. Uvula midline. Patient tongue with protrusion. There is no erythema or exudate the posterior pharynx. Mouth ED: Yes dry mucous membranes Mouth: dry mucous membranes Eyes PERRL and EOMs intact bilaterally General Eye ED: Negative for pale conjunctiva or scleral icterus Neck no lymphadenopathy, supple and no JVD Chest Wall inspection of chest normal and palpation of chest normal Resp normal respiratory effort and clear to auscultation bilaterally Cardio regular rate, regular rhythm, S1 normal heart sound, S2 normal heart sound and no murmurs GI normal to inspection, nondistended, normoactive bowel sounds, non-tender, non- distended and no masses; Negative for hepatosplenomegaly Auscultation: normoactive bowel sounds Back/Spine no CVA tenderness Psych Negative for mental status grossly normal Psych Narrative: Disoriented. Exam is nonfocal Skin no rashes or lesions noted and no wounds General Skin Exam: Negative for jaundice or pallor MDM MDM MDM Narrative Medical decision making narrative: With altered mental status need to determine this is infectious versus metabolic. CT of the head was not obtained since there is no history of trauma and there is no evidence of trauma and neurologic exam is nonfocal. Review of prior admissions revealed because of confusion was hepatic encephalopathy and UTI. Patient's prior records and admissions were reviewed. Lab Data Attestation: I reviewed the patient's lab results. Lab results narrative: White count is normal. H&H is normal. Differentials well. INR to assess liver function is negative. Comprehensive metabolic panel for slight elevation of BUN and creatinine of 30 and 1.05 with a BUN/creatinine ratio of 28:1. GFR is 55. Total bili is 3.5. Lactate elevated 2.9. Ammonia levels elevated 54. UA is pending. Labs: Laboratory Results - last 24 hr 05/28/22 05/28/22 05/28/22 17:36 17:36 17:36 WBC 9.3 RBC 3.55 L Hgb 12.6 Hct 35.1 L MCV 98.9 MCH 35.5 H MCHC 35.9 RDW Std Deviation 51.6 H RDW Coeff of Kwesi 14.1 Plt Count 99 L MPV 9.8 Immature Gran % (Auto) 0.400 Neut % (Auto) 69.6 Lymph % (Auto) 15.6 L [place] % (Auto) 12.2 H Eos % (Auto) 1.8 Baso % (Auto) 0.4 Absolute Neuts (auto) 6.5 Absolute Lymphs (auto) 1.46 Nucleated RBC % 0 Toxic Granulation RARE Platelet Estimate MOD DEC RBC Morphology N CHROM Anisocytosis RARE Macrocytosis RARE PT 16.9 H INR 1.4 Sodium 138 Potassium 4.8 Chloride 109 H Carbon Dioxide 20.0 L Anion Gap 9 BUN 30 H Creatinine 1.05 H Estim Creat Clear Calc 41.83 Est GFR (MDRD) Af Amer 67 Est GFR (MDRD) Non-Af 55 L BUN/Creatinine Ratio 28.6 H Glucose 143 H Lactic Acid Calcium 9.0 Total Bilirubin 3.50 H AST 42 H ALT 39 Alkaline Phosphatase 80 Ammonia Total Protein 7.1 Albumin 2.7 L Globulin 4.4 H Albumin/Globulin Ratio 0.6 L 05/28/22 05/28/22 17:36 18:10 WBC RBC Hgb Hct MCV MCH MCHC RDW Std Deviation RDW Coeff of Kwesi Plt Count MPV Immature Gran % (Auto) Neut % (Auto) Lymph % (Auto) [place] % (Auto) Eos % (Auto) Baso % (Auto) Absolute Neuts (auto) Absolute Lymphs (auto) Nucleated RBC % Toxic Granulation Platelet Estimate RBC Morphology Anisocytosis Macrocytosis PT INR Sodium Potassium Chloride Carbon Dioxide Anion Gap BUN Creatinine Estim Creat Clear Calc Est GFR (MDRD) Af Amer Est GFR (MDRD) Non-Af BUN/Creatinine Ratio Glucose Lactic Acid 2.9 H* Calcium Total Bilirubin AST ALT Alkaline Phosphatase Ammonia 54.0 H Total Protein Albumin Globulin Albumin/Globulin Ratio Radiography Chest X-Ray - ED: 1 View and Read by ED Physician (Chest x-ray was independent reviewed interpreted by me as negative for any acute process. The inspiratory volume is limited. Cardiac silhouette is unremarkable. There is no effusion noted. There is no abnormality osseous structures.) Diagnostic Testing: Clinical Impression(s) from Imaging Studies Chest X-Ray 05/28/22 18:15 IMPRESSION: 1. No evidence of acute cardiopulmonary process. Shallow inspiration crowding of bronchovascular markings. Electronically Signed: Meir Lim MD at 18:30 EST , Discharge Plan Dx/Rx/DC Orders Clinical Impression: Acute hepatic encephalopathy, Acidosis, lactic, Acute prerenal azotemia, Jaundice, Cirrhosis of liver Disposition Disposition: Acute Care Hospital [facility] Discharge Date/Time: 05/28/22 20:44
--- NOTE | 2022-05-28 19:34 | HP.PCM.HOS_ITS ---
HPI - General General Date of Service: 05/28/22 Chief Complaint: confusion HPI Narrative KARL CONCEPCION, is a 71 F who presents with confusion. Typically, according to the patient's son who is at bedside, when this happens this is due to her ammonia being elevated and she did receive lactulose at home. She began transiently better only to get worse again. Being that she was very confused and brought her into the emergency room. Patient's ammonia level was 54. Additional work-up included a chest x-ray was unremarkable. Urinalysis been ordered but not performed yet. Patient states that she is here because of her liver. Cannot elaborate further. The patient's son states that she manages her own lactulose and as far as that he is aware that she has been taking it. I did admit the patient back in February for the same but there was concern by the daughter at that time that she may not be taking it as prescribed. [facility] Medical History Acute encephalopathy Anemia Anxiety Carpal tunnel syndrome Cirrhosis Cirrhosis of liver Depression Diabetes Elevated bilirubin GERD (gastroesophageal reflux disease) History of cirrhosis Hyperammonemia Home Medications pantoprazole 20 mg tablet,delayed release 40 mg PO DAILY gerd 03/21/14 [History Last Taken 03/19/22] carvedilol 3.125 mg tablet 3.125 mg PO BID bp 05/24/21 [History Last Taken 03/19/22] spironolactone 100 mg tablet 100 mg PO DAILY bp 05/24/21 [History Last Taken 03/19/22] ascorbic acid (vitamin C) 500 mg tablet (Vitamin C) 500 mg PO DAILY vitamin 03/20/22 [History Last Taken 03/19/22] calcium 600 mg capsule 600 mg PO BID supplement 03/20/22 [History Last Taken 03/19/22] cholecalciferol (vitamin D3) 25 mcg (1,000 unit) capsule (Vitamin D3) 500 mcg PO BID supplement 03/20/22 [History Last Taken 03/19/22] furosemide 40 mg tablet 40 mg PO DAILY water pill 03/20/22 [History Last Taken 03/19/22] insulin aspart U-100 100 unit/mL (3 mL) subcutaneous pen (Novolog FlexPen U-100 Insulin aspart) 8 unit subcut TIDCM dm 03/20/22 [History Last Taken 03/19/22] insulin aspart U-100 100 unit/mL (3 mL) subcutaneous pen (Novolog FlexPen U-100 Insulin aspart) See Protocol subcut TIDCM dm 03/20/22 [History Last Taken 03/19/22] insulin glargine 100 unit/mL (3 mL) subcutaneous pen (Basaglar KwikPen U-100 Insulin) 28 unit subcut QHS dm 03/20/22 [History Last Taken 03/19/22] iron 40 mg capsule 45 mg PO DAILY supplement 03/20/22 [History Last Taken 03/19/22] magnesium 250 mg tablet 250 mg PO DAILY suplement 03/20/22 [History Last Taken 1 05/19/21] cephalexin 500 mg capsule 500 mg PO TID #15 caps 03/21/22 [Rx Last Taken Unknown] lactulose 20 gram/30 mL oral solution 20 g (30 mL) PO TID #3,000 mL 03/21/22 [Rx Last Taken 03/19/22] Allergy/AdvReac Type Severity Reaction Status Date / Time No Known Allergies Allergy Verified 03/20/22 12:47 unable to obtain (unreliable due to encephalopathy) Surgical History H/O thyroidectomy H/O: hysterectomy History of cholecystectomy History of hip replacement Social History household members: family Smoking Status: Never smoker ROS Review of Systems ROS Unobtainable: due to encephalopathy Vital Signs Vital Signs Vital Signs: 05/28/22 17:21 Temperature 36.6 C Temperature Source Temporal Pulse Rate 83 Respiratory Rate 16 Blood Pressure 149/82 H Blood Pressure Mean 104 Pulse Ox 99 Oxygen Delivery Method Room Air Weight Weight: 62.2 kg Body Mass Index (BMI) 24.3 Physical Exam Narrative - Physical Exam General: Alert, reluctantly cooperative. Patient had a jacket over her head +2 layers of blankets. Confused but not agitated. HEENT: Atraumatic, Normocephalic. No icterus Oral: Moist Mucosa, No Gingival or Mucosal Lesions/ Ulcerations Neck: Supple, No JVD, Negative Carotid Bruits Lungs: Clear to auscultation, Normal air movement Cardiovascular: Regular rate, Normal S1, Normal S2, No murmurs Abdomen: Bowel Sounds Present, Soft, Non Tender, Non-Distended, No Hepato- splenomegaly Extremities: No clubbing, No cyanosis, No edema, Capillary Refill Less than 3 Seconds Skin: No rashes, No breakdown Musculoskeletal: No Tenderness to Palpation of Joints or Extremities Neurological: Neuro grossly intact Psych/Mental Status: Normal Affect, Appropriate Results Lab / Micro Data Attestation: I reviewed the patient's lab results. Result Diagrams: 05/28/22 17:36 05/28/22 17:36 Labs: Laboratory Results - last 24 hr 05/28/22 17:36: WBC 9.3, RBC 3.55 L, Hgb 12.6, Hct 35.1 L, MCV 98.9, MCH 35.5 H, MCHC 35.9, RDW Std Deviation 51.6 H, RDW Coeff of Kwesi 14.1, Plt Count 99 L, MPV 9.8, Immature Gran % (Auto) 0.400, Neut % (Auto) 69.6, Lymph % (Auto) 15.6 L, [place] % (Auto) 12.2 H, Eos % (Auto) 1.8, Baso % (Auto) 0.4, Absolute Neuts (auto) 6.5, Absolute Lymphs (auto) 1.46, Nucleated RBC % 0, Toxic Granulation RARE, Platelet Estimate MOD DEC, RBC Morphology N CHROM, Anisocytosis RARE, Macrocytosis RARE 05/28/22 17:36: PT 16.9 H, INR 1.4 05/28/22 17:36: Sodium 138, Potassium 4.8, Chloride 109 H, Carbon Dioxide 20.0 L , Anion Gap 9, BUN 30 H, Creatinine 1.05 H, Estim Creat Clear Calc 41.83, Est GFR (MDRD) Af Amer 67, Est GFR (MDRD) Non-Af 55 L, BUN/Creatinine Ratio 28.6 H, Glucose 143 H, Calcium 9.0, Total Bilirubin 3.50 H, AST 42 H, ALT 39, Alkaline Phosphatase 80, Total Protein 7.1, Albumin 2.7 L, Globulin 4.4 H, Albumin/Globulin Ratio 0.6 L 05/28/22 17:36: Lactic Acid 2.9 H* 05/28/22 18:10: Ammonia 54.0 H Radiology Impression Chest X-Ray 05/28/22 18:15 IMPRESSION: 1. No evidence of acute cardiopulmonary process. Shallow inspiration crowding of bronchovascular markings. Electronically Signed: Meir Lim MD at 18:30 EST , Assessment & Plan Assessment/Plan (1) Acute hepatic encephalopathy: PLAN: Recurrent Ammonia is slightly elevated Continue lactulose. Patient did receive lactulose in the emergency room Could be complicated by a urinary tract infection and urinalysis has been ordered but not completed yet. Creatinine is up slightly so patient could be having some dehydration. We will hold her diuretics and give her some IV fluids. We will give her some half- normal saline because her chloride is up. Avoid potentiating medications (2) Acidosis, lactic: PLAN: Unclear significance. This is present also back in February. No signs of infection though urinalysis has not been performed yet. Clinically I do not feel the patient is septic. Diuretics to be held and to continue with the IV fluids as above. PLAN: Plan Chronic conditions * Cirrhosis: MELD score 15. Child-Grant score of C. Son is not sure why she has cirrhosis. He states that she was not a heavy drinker in the past. Patient follows with the [facility] and is currently on the liver transplant list. * Diabetes mellitus type 2: Continue with basal insulin prandial insulin and sliding scale. VTE prophylaxis enoxaparin. Charges/Coding Visit Charges Inpatient E&M: 05882 Init Hosp L2
[2022-05-28] MEDS: Lactulose 20 GM/30 ML UDC NG (20:13)
[2022-05-28 20:23] VITALS: BP 142/60; PULSE 90; RESP 18; TEMP 36.4; O2SAT 99
[2022-05-28 20:23] LABS: Color, Urine Yellow (Yellow); Glucose, Dipstick Normal (Normal); Ketone-Dipstick 5 mg/dl (Negative); Leukocyte Esterase-Dipstick 100 /ul (Negative); Mucous, Urine 0 SEEN /hpf (<or=2+); Nitrite-Dipstick Positive (Negative); Occult Blood-Urine 25 /ul (Negative); Protein-Dipstick 15 mg/dl (Negative); Red Blood Cells-Urine 0 SEEN /hpf (0-5); Urine Bilirubin Dipstick Negative (Negative); Urine Clarity Sl. Cloudy (Clear); Urine Urobilinogen 8 mg/dl (Normal)
--- NOTE | 2022-05-28 20:24 | ED.RN ---
Pt was able to take medications PO so NG not needed.
[2022-05-28 20:37] LABS: Bacteria 3+ /hpf (None Seen); Hyaline Cast 0-5 SEEN /lpf (0-5); Squamous Epithelial Cells - UA 0-5 SEEN /hpf (5-10); White Blood Cells 5-10 SEEN /hpf (0-5)
[2022-05-28 20:55] VITALS: BP 151/88; PULSE 84; RESP 18; TEMP 36.8; O2SAT 98
[2022-05-28 20:58] VITALS: BMI 23.2
[2022-05-28] MEDS: 0.45% Normal Saline 1,000 ML 150 ML IV (21:34)
[2022-05-28] MEDS: Insulin Glargine-YFGN 100 UNIT/ML Pen 28 UNIT SC (21:38)
[2022-05-28] MEDS: Carvedilol 3.125 MG TABLET PO (21:39)
[2022-05-28 21:40] LABS: Reflex Lactate? Y
[2022-05-28 22:10] LABS: Bedside Glucose 130 mg/dL (74-106)
[2022-05-28 22:42] LABS: Lactic Acid 2.4 mmol/L (0.4-1.9)
[2022-05-29 04:03] VITALS: BP 126/70; PULSE 75; RESP 20; TEMP 36.8; O2SAT 95
[2022-05-29] MEDS: Lactulose 20 GM/30 ML UDC PO ×3 (05:02→21:25)
[2022-05-29 07:51] LABS: Bedside Glucose 143 mg/dL (74-106)
--- NOTE | 2022-05-29 08:58 | PN.HOSP_ITS ---
Subjective Subjective Doing well, no issues overnight. Mentation is a little bit slow Objective Data Objective Data Vital Signs: Vital Signs Temp Pulse Resp BP Pulse Ox O2 Del Method 98.2 F 75 20 H 126/70 H 95 Room Air 05/29/22 04:03 05/29/22 04:03 05/29/22 04:03 05/29/22 04:03 05/29/22 04:03 05/29/22 04:03 Oxygen Delivery Method Room Air Weight: 131 lb 4.8 oz Body Mass Index (BMI) 23.2 Intake & Output: Intake and Output for Last 24 Hours 05/28/22 05/29/22 05/30/22 03:59 03:59 03:59 Intake Total 1000 / 1000 Balance 1000 / 1000 Lab / Micro Data Result Diagrams: 05/28/22 17:36 05/28/22 17:36 Labs: Laboratory Results - last 24 hr 05/28/22 17:36: WBC 9.3, RBC 3.55 L, Hgb 12.6, Hct 35.1 L, MCV 98.9, MCH 35.5 H, MCHC 35.9, RDW Std Deviation 51.6 H, RDW Coeff of Kwesi 14.1, Plt Count 99 L, MPV 9.8, Immature Gran % (Auto) 0.400, Neut % (Auto) 69.6, Lymph % (Auto) 15.6 L, [place] % (Auto) 12.2 H, Eos % (Auto) 1.8, Baso % (Auto) 0.4, Absolute Neuts (auto) 6.5, Absolute Lymphs (auto) 1.46, Nucleated RBC % 0, Toxic Granulation RARE, Platelet Estimate MOD DEC, RBC Morphology N CHROM, Anisocytosis RARE, Macrocytosis RARE 05/28/22 17:36: PT 16.9 H, INR 1.4 05/28/22 17:36: Sodium 138, Potassium 4.8, Chloride 109 H, Carbon Dioxide 20.0 L , Anion Gap 9, BUN 30 H, Creatinine 1.05 H, Estim Creat Clear Calc 41.83, Est GF R (MDRD) Af Amer 67, Est GFR (MDRD) Non-Af 55 L, BUN/Creatinine Ratio 28.6 H, Glucose 143 H, Calcium 9.0, Total Bilirubin 3.50 H, AST 42 H, ALT 39, Alkaline Phosphatase 80, Total Protein 7.1, Albumin 2.7 L, Globulin 4.4 H, [place] min/Globulin Ratio 0.6 L 05/28/22 17:36: Lactic Acid 2.9 H* 05/28/22 18:10: Ammonia 54.0 H 05/28/22 20:18: Urine Color Yellow, Urine Clarity Sl. Cloudy, Urine pH 6.0, Ur Specific [place] 1.020, Urine Protein 15 H, Urine Glucose (UA) Normal, Urine Ketones 5 H, Urine Occult Blood 25 H, Urine Nitrite Positive H, Urine Bilirubin Negative, Urine Urobilinogen 8 H, Ur Leukocyte Esterase 100 H, Urine RBC 0 SEEN, Urine WBC 5-10 SEEN, Ur Squamous Epith Cells 0-5 SEEN, Urine Bacteria 3+, Hyaline Casts 0-5 SEEN, Urine Mucus 0 SEEN 05/28/22 21:36: POC Glucose 130 H 05/28/22 22:02: Lactic Acid 2.4 H* 05/29/22 07:29: POC Glucose 143 H Radiography Diagnostic Testing: Radiology Impression Chest X-Ray 05/28/22 18:15 IMPRESSION: 1. No evidence of acute cardiopulmonary process. Shallow inspiration crowding of bronchovascular markings. Electronically Signed: Meir Lim MD at 18:30 EST , Physical Exam Narrative General: Alert, Cooperative, No apparent distress HEENT: Atraumatic, PERRLA, EOMI, Normocephalic Oral: Moist Mucosa Neck: Supple, No JVD Lungs: Clear to auscultation, Normal air movement, No rhonchi, No wheeze, No rales Cardiovascular: Regular rate, Regular Rhythm, Normal S1, Normal S2, No murmurs Abdomen: Soft, Non Tender, Non-Distended, No Hepato-splenomegaly Extremities: No edema, Capillary Refill Less than 3 Seconds Skin: No rashes, No breakdown Musculoskeletal: No Tenderness to Palpation of Joints or Extremities Neurological: Moves all extremities, sensation intact Psych/Mental Status: Normal Affect, Appropriate Assessment & Plan Assessment/Plan (1) Acute hepatic encephalopathy: (2) Acidosis, lactic: PLAN: Plan 1. Acute hepatic encephalopathy secondary to cirrhosis possible UTI/GERD ? UA is mildly consistent with a UTI and given her history we will start her on Rocephin ? Urine culture is pending ? Continue with lactulose ? Her MELD score is a 15 with a Child-Grant C, she does follow with the [facility] which will recommend outpatient follow-up, she is on the liver transplant list ? Continue with PPI ? We will hold her diuretics and continue with IV fluids 2. DM2 ? Continue with insulin ? Accu-Cheks ACHS ? We will make adjustments as necessary DVT: Lovenox Charges/Coding Visit Charges Inpatient E&M: 25712 Subs Hosp L2
[2022-05-29] MEDS: Insulin Lispro 100 UNIT/ML INSULN.PEN 8 UNIT SC ×3 (09:23→17:38)
[2022-05-29] MEDS: Ferrous Sulfate 325 MG Tablet PO ×2 (09:26)
[2022-05-29] MEDS: Carvedilol 3.125 MG TABLET PO ×2 (09:27→17:40)
[2022-05-29 09:40] VITALS: BP 108/65; PULSE 73; RESP 18; TEMP 36.7; O2SAT 100
[2022-05-29] MEDS: Enoxaparin 40 MG/0.4 ML Syringe SC (10:00)
[2022-05-29] MEDS: Pantoprazole Sodium 40 MG Tablet PO (10:01)
[2022-05-29] MEDS: 0.9% Saline Lock 10 ML Syringe IV (10:04)
[2022-05-29] MEDS: Ceftriaxone 1 GM/50 ML BAG IV (10:05)
[2022-05-29 12:15] LABS: Bedside Glucose 203 mg/dL (74-106)
[2022-05-29] MEDS: Insulin Lispro 100 UNIT/ML INSULN.PEN SC (12:52)
[2022-05-29 14:07] VITALS: BP 117/65; PULSE 76; RESP 16; TEMP 37.1; O2SAT 100
[2022-05-29 17:05] LABS: Bedside Glucose 143 mg/dL (74-106)
[2022-05-29] MEDS: Insulin Glargine-YFGN 100 UNIT/ML Pen 28 UNIT SC (21:29)
[2022-05-29 21:55] LABS: Bedside Glucose 123 mg/dL (74-106)
[2022-05-29 22:00] VITALS: BP 118/70; PULSE 74; RESP 16; TEMP 36.9; O2SAT 100
[2022-05-30 05:00] VITALS: BP 111/65; PULSE 75; RESP 16; TEMP 36.8; O2SAT 94
[2022-05-30] MEDS: Lactulose 20 GM/30 ML UDC PO ×3 (05:13→20:52)
[2022-05-30 05:51] LABS: Absolute Lymphocyte Count 1.46 X10^3/uL (0.83-4.51); Absolute Neutrophil Count 2.9 X10^3/uL (2.0-7.7); Basophil# 0.04 X10^3/uL; Basophil% 0.7 % (0-1); Eosinophil# 0.29 X10^3/uL; Eosinophils% 5.3 % (0-5); Hematocrit 30.7 % (37-47); Hemoglobin 10.6 g/dL (12.0-15.0); Lymphocyte # 1.46 X10^3/ul (0.83-4.51); Lymphocyte % 26.5 % (19-41); Mean Corp Hgb Conc 34.5 g/dL (32-36); Mean Corpuscular Hgb 35.5 pg (27.0-32.0); Mean Corpuscular Volume 102.7 fL (81-99); Mean Platelet Vol. 9.9 fl (6.2-12.0); Monocyte# 0.73 X10^3/uL; Monocyte% 13.3 % (0-10); NRBC Flagged by Analyzer 0 % (0-5); Neutrophil # 2.94 X10^3/uL (2.7-7.7); Neutrophil % 53.5 % (47-70); POSITIVE COUNT YES; Platelet Count 77 K/mm3 (150-450); RBC Distribution Width CV 14.2 % (11.6-14.6); RBC Distribution Width SD 53.6 fl (35.1-43.9); Red Blood Count 2.99 M/mm3 (4.2-5.4); White Blood Count 5.5 K/mm3 (4.4-11.0)
[2022-05-30 06:53] LABS: ALB/GLOB Ratio 0.6 RATIO (0.9-2.4); AST(SGOT) 35 U/L (15-37); Alanine Aminotransfer ALT/SGPT 33 U/L (13-56); Albumin, Serum 2.2 g/dL (3.2-5.0); Alkaline Phosphatase 75 U/L (45-117); Anion Gap 8 (5-15); BUN 26 mg/dL (7-18); BUN/Creat Ratio 32.6 RATIO (10-20); Calcium,Total 8.5 mg/dL (8.5-10.1); Chloride 111 mmol/L (98-107); EST Glomerular Filtration Rate 76 mL/min (>60); Est Glom Filt Rate - Afr Amer 92 mL/min (>60); Globulin 3.9 g/dL (2.2-4.2); Glucose 122 mg/dL (74-106); Potassium 4.3 mmol/L (3.5-5.1); Protein, Total 6.1 g/dL (6.4-8.2); Sodium Level 139 mmol/L (136-145)
--- NOTE | 2022-05-30 07:35 | PN.HOSP_ITS ---
Objective Data Objective Data Vital Signs: Vital Signs Temp Pulse Resp BP Pulse Ox O2 Del Method 98.3 F 75 16 111/65 94 Room Air 05/30/22 05:00 05/30/22 05:00 05/30/22 05:00 05/30/22 05:00 05/30/22 05:00 05/30/22 05:00 Oxygen Delivery Method Room Air Weight: 59.557 kg Body Mass Index (BMI) 23.2 Intake & Output: Intake and Output for Last 24 Hours 05/28/22 05/29/22 05/30/22 23:59 23:59 23:59 Intake Total 1650 / 1650 Balance 1650 / 1650 Lab / Micro Data Result Diagrams: 05/30/22 05:04 05/30/22 05:04 Labs: Laboratory Results - last 24 hr 05/29/22 07:29: POC Glucose 143 H 05/29/22 11:42: POC Glucose 203 H 05/29/22 16:44: POC Glucose 143 H 05/29/22 21:29: POC Glucose 123 H 05/30/22 05:04: WBC 5.5, RBC 2.99 L, Hgb 10.6 L, Hct 30.7 L, MCV 102.7 H, MCH 35.5 H, MCHC 34.5, RDW Std Deviation 53.6 H, RDW Coeff of Kwesi 14.2, Plt Count 77 L, MPV 9.9, Immature Gran % (Auto) 0.700, Neut % (Auto) 53.5, Lymph % (Auto) 26.5, [place] % (Auto) 13.3 H, Eos % (Auto) 5.3 H, Baso % (Auto) 0.7, Absolute Neuts (auto) 2.9, Absolute Lymphs (auto) 1.46, Nucleated RBC % 0 05/30/22 05:04: Sodium 139, Potassium 4.3, Chloride 111 H, Carbon Dioxide 20.0 L , Anion Gap 8, BUN 26 H, Creatinine 0.80, Estim Creat Clear Calc 54.90, Est GFR (MDRD) Af Amer 92, Est GFR (MDRD) Non-Af 76, BUN/Creatinine Ratio 32.6 H, G lucose 122 H, Calcium 8.5, Total Bilirubin 1.90 H, AST 35, ALT 33, Alkaline Phosphatase 75, Total Protein 6.1 L, Albumin 2.2 L, Globulin 3.9, Albumin/Globulin Ratio 0.6 L Physical Exam Narrative GENERAL: cooperative HEENT: Atraumatic; normocephalic EYES;icteric, Normal Conjunctiva NECK; supple, normal thyroid, RESPIRATORY: Diminished to auscultation CARDIOVASCULAR: Regular S1 S2, GI: soft, normoactive bowel sounds, : No Renal angle tenderness; EXTREMITIES: No edema, no clubbing, MUSCULOSKELETAL: no muscle wasting NEURO: Awake; no lateralizing signs. SKIN: No Rash PSYCH; Flat affect Assessment & Plan Assessment/Plan (1) Acute hepatic encephalopathy: (2) Acidosis, lactic: PLAN: Plan Patient is a 71-year-old lady with history of history of cirrhosis of the liver admitted with altered mental status found to have acute cystitis 1. Acute hepatic encephalopathy ? Possibly per stated by patient cystitis managed with lactulose 2. Acute cystitis ? Patient started on Rocephin culture sent results pending 3. Cirrhosis of the liver ? We will continue patient home medications including lactulose as well as Xifaxan patient's daughter to update the patient home meds 4. Diabetes mellitus type 2 ? Please on Accu-Cheks before meals and at bedtime with sliding scale coverage 5. GERD ? Patient is on PPI due to continued 6. Chronic thrombocytopenia ? Secondary to chronic liver disease 7. DVT prophylaxis ? Bilateral scd Time spent in the patient's overall evaluation,decision-making process, review of diagnostic data, adjustment of management, discussion with other providers, nursing nursing and ancillary staff involved in patient's care documentation, 38 Minutes Charges/Coding Visit Charges Inpatient E&M: 91508 Subs Hosp L2
[2022-05-30 08:15] LABS: Bedside Glucose 135 mg/dL (74-106)
[2022-05-30 09:07] VITALS: BP 113/68; PULSE 73; RESP 16; TEMP 36.7; O2SAT 100
[2022-05-30] MEDS: Pantoprazole Sodium 40 MG Tablet PO (09:09)
[2022-05-30] MEDS: Carvedilol 3.125 MG TABLET PO ×2 (09:09→17:22)
[2022-05-30] MEDS: Ceftriaxone 1 GM/50 ML BAG IV (09:09)
[2022-05-30 09:42] VITALS: O2SAT 99
[2022-05-30 09:52] VITALS: O2SAT 99
--- NOTE | 2022-05-30 10:35 | CASEMGMT ---
RN?CM?CABINETMAKER MAINTENANCE?CM?to room to meet with patient for initial transition planning/care coordination?assessment.?RN?CM?introduced self and role at [facility].? Pt voices understanding and consents to?assessment?at this time.? Pt resting in bed in no distress at this time.? Pt is A/O at this time and answers all questions appropriately.?? Care providers, pharmacy, and demographics verified/updated at this time.? PCP:?Michael Lawson Specialists:?Татьяна. [facility]--liver transplant team Preferred Pharmacy:?[facility] Insurance:?MCR A/B, [place] Prescription Benefit:?Yes Living Will/HPOA:?dtrGavinoa--HCPOA. Son, Mumtaz, is 1st alternative LNOK:?dtr/POACatherine. Son, Mumtaz. 4 other children Living Arrangements:?Lives w/son in 2-story home w/4 steps to enter w/railing on one side. Full bath on 2nd floor. 1/2 bath on 1st floor. She states she is able to navigate the stairs well by using the handrails. Pt home alone during most days. Son works during the day, but is home at night. Pt is indep w/ADL's and manages her own medications. Pt's sister checks on her often and gets her groceries.?Pt prepares her own meals. Son does the laundry. Transportation:?family. DME: ?States has the following DME:?canes, walker, grab bars, shower chair, system specialist, functioning glucometer w/supplies, continuous glucose monitor. Pt states she has all insulin and medications needed. ?Pt states no need for further DME at this time.?? HHC/SNF:?No hx of SNF. Has had [facility] in the past. Pt states would like [facility] for therapy @ discharge. She declines wanting a list of other HHC options. [facility]. Per [place], they are able to accept pt w/SOC slated for 06/01. Pt wishes to return home and states has no concerns with going home at time of discharge.??CM?to follow for any further discharge planning/needs.? Pt voices no further concerns/needs at this time.? Advised pt to ask for?CM?if any further questions/concerns/needs arise.? Voices understanding.? PLAN:?Home w/[facility] HHC: PT/OT? Otto BSN?RN?CM
[2022-05-30] MEDS: rifAXIMin 550 MG Tablet PO ×2 (11:35→20:52)
[2022-05-30] MEDS: Insulin Lispro 100 UNIT/ML INSULN.PEN 8 UNIT SC (11:37)
[2022-05-30] MEDS: Insulin Lispro 100 UNIT/ML INSULN.PEN SC (11:37)
[2022-05-30 12:06] LABS: Bedside Glucose 208 mg/dL (74-106)
[2022-05-30 14:32] VITALS: BP 120/67; PULSE 77; RESP 16; TEMP 36.7; O2SAT 98
[2022-05-30] MEDS: Glucerna Shake 120 ML LIQUID PO ×3 (14:34→20:52)
[2022-05-30 16:56] LABS: Bedside Glucose 148 mg/dL (74-106)
[2022-05-30] MEDS: Insulin Glargine-YFGN 100 UNIT/ML Pen 28 UNIT SC (20:52)
[2022-05-30 21:31] VITALS: BP 111/65; PULSE 80; RESP 16; TEMP 36.8; O2SAT 95
[2022-05-30 22:30] LABS: Bedside Glucose 199 mg/dL (74-106)
[2022-05-31 02:11] VITALS: BP 110/70; PULSE 77; RESP 18; TEMP 37; O2SAT 98
[2022-05-31 04:55] LABS: Absolute Lymphocyte Count 1.32 X10^3/uL (0.83-4.51); Absolute Neutrophil Count 3.6 X10^3/uL (2.0-7.7); Basophil# 0.06 X10^3/uL; Eosinophil# 0.33 X10^3/uL; Eosinophils% 5.3 % (0-5); Hematocrit 30.4 % (37-47); Hemoglobin 10.6 g/dL (12.0-15.0); Lymphocyte # 1.32 X10^3/ul (0.83-4.51); Lymphocyte % 21.4 % (19-41); Mean Corp Hgb Conc 34.9 g/dL (32-36); Mean Corpuscular Hgb 35.8 pg (27.0-32.0); Mean Corpuscular Volume 102.7 fL (81-99); Mean Platelet Vol. 9.8 fl (6.2-12.0); Monocyte# 0.82 X10^3/uL; Monocyte% 13.3 % (0-10); NRBC Flagged by Analyzer 0 % (0-5); Neutrophil # 3.61 X10^3/uL (2.7-7.7); Neutrophil % 58.5 % (47-70); POSITIVE COUNT YES; Platelet Count 79 K/mm3 (150-450); RBC Distribution Width CV 14.1 % (11.6-14.6); RBC Distribution Width SD 52.9 fl (35.1-43.9); Red Blood Count 2.96 M/mm3 (4.2-5.4); White Blood Count 6.2 K/mm3 (4.4-11.0)
[2022-05-31] MEDS: Lactulose 20 GM/30 ML UDC PO ×2 (04:59→12:51)
[2022-05-31 05:19] LABS: AST(SGOT) 33 U/L (15-37); Alanine Aminotransfer ALT/SGPT 32 U/L (13-56); Albumin, Serum 2.1 g/dL (3.2-5.0); Alkaline Phosphatase 72 U/L (45-117); Anion Gap 8 (5-15); BUN 22 mg/dL (7-18); BUN/Creat Ratio 31.1 RATIO (10-20); Bilirubin, Direct 1.02 mg/dL (0.00-0.30); Calcium,Total 8.4 mg/dL (8.5-10.1); Chloride 108 mmol/L (98-107); Creatinine, Serum 0.71 mg/dL (0.55-1.02); EST Glomerular Filtration Rate 87 mL/min (>60); Est Glom Filt Rate - Afr Amer 105 mL/min (>60); Estimated Creatinine Clearance 43.92 ml/min; Globulin 3.8 g/dL (2.2-4.2); Glucose 126 mg/dL (74-106); Magnesium 1.7 mg/dL (1.6-2.6); Potassium 4.6 mmol/L (3.5-5.1); Protein, Total 5.9 g/dL (6.4-8.2); Sodium Level 135 mmol/L (136-145)
[2022-05-31 07:49] VITALS: BP 107/64; PULSE 75; RESP 18; TEMP 36.9; O2SAT 97
--- NOTE | 2022-05-31 07:50 | PN.HOSP_ITS ---
Subjective Subjective Patient back to baseline patient be assessed for possible discharge Objective Data Objective Data Vital Signs: Vital Signs Temp Pulse Resp BP Pulse Ox O2 Del Method 98.6 F 77 18 110/70 98 Room Air 05/31/22 02:11 05/31/22 02:11 05/31/22 02:11 05/31/22 02:11 05/31/22 02:11 05/31/22 02:11 Oxygen Delivery Method Room Air Weight: 59.557 kg Body Mass Index (BMI) 23.2 Intake & Output: Intake and Output for Last 24 Hours 05/29/22 05/30/22 05/31/22 23:59 23:59 23:59 Intake Total 1650 / 1650 50 / 50 Balance 1650 / 1650 50 / 50 Lab / Micro Data Result Diagrams: 05/31/22 03:40 05/31/22 03:40 Labs: Laboratory Results - last 24 hr 05/30/22 07:49: POC Glucose 135 H 05/30/22 11:36: POC Glucose 208 H 05/30/22 16:34: POC Glucose 148 H 05/30/22 20:49: POC Glucose 199 H 05/31/22 03:40: WBC 6.2, RBC 2.96 L, Hgb 10.6 L, Hct 30.4 L, MCV 102.7 H, MCH 35.8 H, MCHC 34.9, RDW Std Deviation 52.9 H, RDW Coeff of Kwesi 14.1, Plt Count 79 L, MPV 9.8, Immature Gran % (Auto) 0.500, Neut % (Auto) 58.5, Lymph % (Auto) 21.4, [place] % (Auto) 13.3 H, Eos % (Auto) 5.3 H, Baso % (Auto) 1.0, Absolute Neuts (auto) 3.6, Absolute Lymphs (auto) 1.32, Nucleated RBC % 0 05/31/22 03:40: Sodium 135 L, Potassium 4.6, Chloride 108 H, Carbon Dioxide 19.0 L, Anion Gap 8, BUN 22 H, Creatinine 0.71, Estim Creat Clear Calc 43.92, Est GFR (MDRD) Af Amer 105, Est GFR (MDRD) Non-Af 87, BUN/Creatinine Ratio 31.1 H, Glucose 126 H, Calcium 8.4 L, Magnesium 1.7, Total Bilirubin 1.90 H, Direct Bilirubin 1.02 H, AST 33, ALT 32, Alkaline Phosphatase 72, Total Protein 5.9 L, Albumin 2.1 L, Globulin 3.8 Micro: Microbiology 05/28/22 20:18 Urine, Clean Catch Urine Culture - Final Escherichia coli Physical Exam Narrative GENERAL: cooperative HEENT: Atraumatic; normocephalic EYES;icteric, Normal Conjunctiva NECK; supple, normal thyroid, RESPIRATORY: Diminished to auscultation CARDIOVASCULAR: Regular S1 S2, GI: soft, normoactive bowel sounds, : No Renal angle tenderness; EXTREMITIES: No edema, no clubbing, MUSCULOSKELETAL: no muscle wasting NEURO: Awake; no lateralizing signs. SKIN: No Rash PSYCH; Flat affect Assessment & Plan Assessment/Plan (1) Acute hepatic encephalopathy: (2) Acidosis, lactic: PLAN: Plan Patient is a 71-year-old lady with history of history of cirrhosis of the liver admitted with altered mental status found to have acute cystitis 1. Acute hepatic encephalopathy ? Possibly per stated by patient cystitis managed with lactulose 2. Acute cystitis with E. coli ? Patient started on Rocephin culture sent results pending ? Urine cultures came back positive for E. coli pansensitive 3. Cirrhosis of the liver ? We will continue patient home medications including lactulose as well as Xifaxan patient's daughter to update the patient home meds 4. Diabetes mellitus type 2 ? Please on Accu-Cheks before meals and at bedtime with sliding scale coverage 5. GERD ? Patient is on PPI due to continued 6. Chronic thrombocytopenia ? Secondary to chronic liver disease 7. DVT prophylaxis ? Bilateral scd Time spent in the patient's overall evaluation,decision-making process, review of diagnostic data, adjustment of management, discussion with other providers, nursing nursing and ancillary staff involved in patient's care documentation, 38 Minutes Charges/Coding Visit Charges Inpatient E&M: 59870 Subs Hosp L2 Reason for Visit Reason for Visit: Diagnoses Acidosis, unspecified (05/28/22) Hepatic encephalopathy (05/28/22)
--- NOTE | 2022-05-31 09:15 | PCM.DC.SUM ---
Providers Date of Admission: 05/28/22 Date of Discharge: 05/31/22 Primary Care Physician: Dr. Michael Lawson MD Reason For Visit: HEPATIC ENCEPHALOPATHY Diagnosis Discharge Diagnosis (1) Acute hepatic encephalopathy: Status: Acute Code(s): K76.82 - Hepatic encephalopathy (2) Acidosis, lactic: Status: Acute Code(s): E87.20 - Acidosis, unspecified Plan Patient is a 71-year-old lady with history of history of cirrhosis of the liver admitted with altered mental status found to have acute cystitis 1. Acute hepatic encephalopathy ? Possibly per stated by patient cystitis managed with lactulose 2. Acute cystitis with E. coli ? Patient started on Rocephin culture sent results pending ? Urine cultures came back positive for E. coli pansensitive 3. Cirrhosis of the liver ? We will continue patient home medications including lactulose as well as Xifaxan patient's daughter to update the patient home meds 4. Diabetes mellitus type 2 ? Please on Accu-Cheks before meals and at bedtime with sliding scale coverage 5. GERD ? Patient is on PPI due to continued 6. Chronic thrombocytopenia ? Secondary to chronic liver disease 7. DVT prophylaxis ? Bilateral scd Time spent in the patient's overall evaluation,decision-making process, review of diagnostic data, adjustment of management, discussion with other providers, nursing nursing and ancillary staff involved in patient's care documentation, 38 Minutes Medications at Discharge Home Medications pantoprazole 20 mg tablet,delayed release 40 mg PO BID gerd 03/21/14 carvedilol 3.125 mg tablet 3.125 mg PO BID bp 05/24/21 spironolactone 100 mg tablet 100 mg PO BID bp 05/24/21 ascorbic acid (vitamin C) 500 mg tablet (Vitamin C) 500 mg PO QHS vitamin 03/20/22 calcium 600 mg capsule 600 mg PO BID supplement 03/20/22 cholecalciferol (vitamin D3) 25 mcg (1,000 unit) capsule (Vitamin D3) 500 mcg PO BID supplement 03/20/22 furosemide 40 mg tablet 40 mg PO DAILY water pill 03/20/22 insulin aspart U-100 100 unit/mL (3 mL) subcutaneous pen (Novolog FlexPen U-100 Insulin aspart) 8 unit subcut TIDCM dm 03/20/22 insulin aspart U-100 100 unit/mL (3 mL) subcutaneous pen (Novolog FlexPen U-100 Insulin aspart) See Protocol subcut TIDCM dm 03/20/22 insulin glargine 100 unit/mL (3 mL) subcutaneous pen (Basaglar KwikPen U-100 Insulin) 40 unit subcut QHS dm 03/20/22 iron 40 mg capsule 45 mg PO QHS supplement 03/20/22 magnesium 250 mg tablet 250 mg PO QHS suplement 03/20/22 lactulose 20 gram/30 mL oral solution 20 g (30 mL) PO TID #3,000 mL 03/21/22 valacyclovir 1 gram tablet 1 mg PO DAILY PRN PRN blisters 05/28/22 rifaximin 550 mg tablet (Xifaxan) 550 mg PO BID MEMORY 05/30/22 cefdinir 300 mg capsule 300 mg PO BID #10 caps 05/31/22 Hospital Course Summary of Care Provided Minutes Spent on Discharge: 38 Physical Exam Narrative GENERAL: cooperative HEENT: Atraumatic; normocephalic EYES;icteric, Normal Conjunctiva NECK; supple, normal thyroid, RESPIRATORY: Diminished to auscultation CARDIOVASCULAR: Regular S1 S2, GI: soft, normoactive bowel sounds, : No Renal angle tenderness; EXTREMITIES: No edema, no clubbing, MUSCULOSKELETAL: no muscle wasting NEURO: Awake; no lateralizing signs. SKIN: No Rash PSYCH; Flat affect Weight / BMI Weight Weight: 59.557 kg Body Mass Index (BMI) 23.2 ABG / Lab / Microbiology Data Result Diagrams: 05/31/22 03:40 05/31/22 03:40 Laboratory: Laboratory Results - last 24 hr 05/30/22 11:36: POC Glucose 208 H 05/30/22 16:34: POC Glucose 148 H 05/30/22 20:49: POC Glucose 199 H 05/31/22 03:40: WBC 6.2, RBC 2.96 L, Hgb 10.6 L, Hct 30.4 L, MCV 102.7 H, MCH 35.8 H, MCHC 34.9, RDW Std Deviation 52.9 H, RDW Coeff of Kwesi 14.1, Plt Count 79 L, MPV 9.8, Immature Gran % (Auto) 0.500, Neut % (Auto) 58.5, Lymph % (Auto) 21.4, [place] % (Auto) 13.3 H, Eos % (Auto) 5.3 H, Baso % (Auto) 1.0, Absolute Neuts (auto) 3.6, Absolute Lymphs (auto) 1.32, Nucleated RBC % 0 05/31/22 03:40: Sodium 135 L, Potassium 4.6, Chloride 108 H, Carbon Dioxide 19.0 L, Anion Gap 8, BUN 22 H, Creatinine 0.71, Estim Creat Clear Calc 43.92, Est GFR (MDRD) Af Amer 105, Est GFR (MDRD) Non-Af 87, BUN/Creatinine Ratio 31.1 H, Glucose 126 H, Calcium 8.4 L, Magnesium 1.7, Total Bilirubin 1.90 H, Direct Bilirubin 1.02 H, AST 33, ALT 32, Alkaline Phosphatase 72, Total Protein 5.9 L, Albumin 2.1 L, Globulin 3.8 Microbiology: Microbiology 05/28/22 20:18 Urine, Clean Catch Urine Culture - Final Escherichia coli D/C Instructions Discharge Diet: 1800 Calorie Control Diet Discharge Activity: Return to Normal Activity Call your doctor if you observe: Fever of 101 or Higher, Shortness of breath, Fainting spells and Chest pain Meaningful Use Info Meaningful Use Diagnoses (Choose all that apply): None applicable Discharge Plan Admission Admit Date/Time: 05/28/22 19:26 Attending Provider: Michael Ca Primary Care Provider: Michael Lawson Consulting Providers: Baljit Cavanaugh ; Chito Huggins Discharge Orders/Prescriptions Prescriptions: New cefdinir 300 mg capsule 300 mg PO BID Qty: 10 0RF Continued pantoprazole 20 MG tablet 40 mg PO BID spironolactone 100 mg Tablet 100 mg PO BID carvedilol 3.125 mg Tablet 3.125 mg PO BID furosemide 40 mg tablet 40 mg PO DAILY calcium 600 mg Capsule 600 mg PO BID ascorbic acid (vitamin C) [Vitamin C] 500 mg Tablet 500 mg PO QHS magnesium 250 mg Tablet 250 mg PO QHS iron 40 mg Capsule 45 mg PO QHS cholecalciferol (vitamin D3) [Vitamin D3] 25 mcg (1,000 unit) Capsule 500 mcg PO BID insulin aspart U-100 [Novolog FlexPen U-100 Insulin] 100 unit/mL (3 mL) insulin pen 8 unit SUBCUT TIDCM insulin aspart U-100 [Novolog FlexPen U-100 Insulin] 100 unit/mL (3 mL) insulin pen See Protocol SUBCUT TIDCM Protocol: 4. Sliding Scale Insulin High-Med Dosing Condition: 150-199 mg/dl = 2 units Condition: 200-259 mg/dl = 4 units Condition: 260-324 mg/dl = 6 units Condition: 325-374 mg/dl = 8 units Condition: 375-409 mg/dl = 10 units Condition: 410-449 mg/dl = 11 units Condition: Greater than 449 call physician Protocol Text: - Use for Total Daily Dose of Insulin 56-80 units - Patient who are insulin resistant or septic HIGH MEDIUM DOSING ALGORITHM insulin glargine [Basaglar KwikPen U-100 Insulin] 100 unit/mL (3 mL) insulin pen 40 unit SUBCUT QHS lactulose 20 gram/30 mL solution 20 g PO TID Qty: 3000 2RF Rx Instructions: Titrate to 2-3 soft stools daily valacyclovir 1 gram tablet 1 mg PO DAILY PRN PRN (Reason: blisters) Xifaxan 550 mg Tablet 550 mg PO BID Referrals / Follow Up: Michael Lawson MD [Primary Care Provider] - In 1 Week Disposition Disposition (needs filled in before D/C Order can be placed): Home, Self Care Charges/Coding Visit Charges Inpatient E&M: 30061 Disch Hosp >30min
[2022-05-31] MEDS: Ferrous Sulfate 325 MG Tablet PO (09:37)
[2022-05-31] MEDS: Pantoprazole Sodium 40 MG Tablet PO (09:37)
[2022-05-31] MEDS: Glucerna Shake 120 ML LIQUID PO (09:37)
[2022-05-31] MEDS: Carvedilol 3.125 MG TABLET PO (09:37)
[2022-05-31] MEDS: Ceftriaxone 1 GM/50 ML BAG IV (09:37)
[2022-05-31] MEDS: rifAXIMin 550 MG Tablet PO (09:37)
[2022-05-31] MEDS: 0.9% Saline Lock 10 ML Syringe IV (09:38)
--- NOTE | 2022-05-31 09:58 | CASEMGMT ---
JEANNIE CARUSO NOTE: Pt being discharged home. JEANNIE CARUSO to room to talk w/pt. She was made aware [facility] able to accept her and that they will be contacting her to arrange SOC. She voices understanding and denies having other home-going/discharge needs. Otto CAMACHO RN CM
[2022-05-31] MEDS: Insulin Lispro 100 UNIT/ML INSULN.PEN SC (11:16)
[2022-05-31] MEDS: Insulin Lispro 100 UNIT/ML INSULN.PEN 8 UNIT SC (11:16)
[2022-05-31 11:41] LABS: Bedside Glucose 292 mg/dL (74-106)
[2022-05-31 12:49] VITALS: BP 114/58; PULSE 83; RESP 18; TEMP 37.2; O2SAT 99
--- NOTE | 2022-05-31 13:19 | PHA.DC.MR ---
Pharmacy Service has performed discharge medication reconciliation for this patient. The patient's discharge medication list was reviewed for discrepancies and discrepancies were resolved. Medication education paper prepared, but patient discharged when counseling was attempted. Home Medications pantoprazole 20 mg tablet,delayed release 40 mg PO BID gerd 03/21/14 carvedilol 3.125 mg tablet 3.125 mg PO BID bp 05/24/21 spironolactone 100 mg tablet 100 mg PO BID bp 05/24/21 ascorbic acid (vitamin C) 500 mg tablet (Vitamin C) 500 mg PO QHS vitamin 03/20/22 calcium 600 mg capsule 600 mg PO BID supplement 03/20/22 cholecalciferol (vitamin D3) 25 mcg (1,000 unit) capsule (Vitamin D3) 500 mcg PO BID supplement 03/20/22 furosemide 40 mg tablet 40 mg PO DAILY water pill 03/20/22 insulin aspart U-100 100 unit/mL (3 mL) subcutaneous pen (Novolog FlexPen U-100 Insulin aspart) 8 unit subcut TIDCM dm 03/20/22 insulin aspart U-100 100 unit/mL (3 mL) subcutaneous pen (Novolog FlexPen U-100 Insulin aspart) See Protocol subcut TIDCM dm 03/20/22 insulin glargine 100 unit/mL (3 mL) subcutaneous pen (Basaglar KwikPen U-100 Insulin) 40 unit subcut QHS dm 03/20/22 iron 40 mg capsule 45 mg PO QHS supplement 03/20/22 magnesium 250 mg tablet 250 mg PO QHS suplement 03/20/22 lactulose 20 gram/30 mL oral solution 20 g (30 mL) PO TID #3,000 mL 03/21/22 valacyclovir 1 gram tablet 1 mg PO DAILY PRN PRN blisters 05/28/22 rifaximin 550 mg tablet (Xifaxan) 550 mg PO BID MEMORY 05/30/22 cefdinir 300 mg capsule 300 mg PO BID #10 caps 05/31/22
== END 2022-05-31 13:13 | disposition home or self-care (01) | DRG 442 ==
LOC: ED 19:13 → MS3 19:55
PROVIDERS: Family Medicine; Emergency Provider Emergency Medicine; PCP Family Medicine; Visit Provider Internal Medicine
DX: K76.82 Hepatic encephalopathy (principal); N30.00 Acute cystitis without hematuria; E87.20 Acidosis, unspecified; Z76.82 Awaiting organ transplant status; D69.6 Thrombocytopenia, unspecified; E11.9 Type 2 diabetes mellitus without complications; K21.9 Gastro-esophageal reflux disease without esophagitis; B96.20 Unspecified Escherichia coli [E. coli] as the cause of diseases classified elsewhere; K74.60 Unspecified cirrhosis of liver; Z79.4 Long term (current) use of insulin; Z79.899 Other long term (current) drug therapy; Z87.440 Personal history of urinary (tract) infections
CPT/HCPCS: 36415; 71046; 80048; 80053; 80076; 81001; 82140; 82962; 83605; 83735; 85025; 85610; 87077; 87086; 87088; 87186; 97162; 97166; 97530; 97535; 99285; A4216

== ENCOUNTER 2022-07-14 10:42 | Emergency (ER) | payer MEDICARE, BC, SELFPAY ==
[2022-07-14 10:43] VITALS: BP 138/93; PULSE 72; RESP 16; TEMP 35.9; O2SAT 100
[2022-07-14 11:00] VITALS: BMI 24.8
--- NOTE | 2022-07-14 11:24 | EKG12_ITS ---
Test Reason : DIZZY Blood Pressure : / mmHG Vent. Rate : 065 BPM Atrial Rate : 065 BPM P-R Int : 174 ms QRS Dur : 058 ms QT Int : 390 ms P-R-T Axes : 039 -22 045 degrees QTc Int : 405 ms Normal sinus rhythm Normal ECG When compared with ECG of 20-MAR-2022 13:33, ST elevation now present in Lateral leads QT has shortened Confirmed by ROBERT ROMERO, TAYA ([id number]), newspaper or periodical editor SHANIQUA HOLDEN ([id number]) on 07/20/2022 10:01:37 AM Referred By: Confirmed By:TAYA JONES MD
--- NOTE | 2022-07-14 11:27 | CT_ITS ---
STUDY: CT BRAIN WITHOUT CONTRAST REASON FOR EXAM: Female, 71 years old. Dizziness and nausea. RADIATION DOSAGE (If Supplied By Facility): CTDIvol = ( 44.99 ) mGy, DLP = ( 779.24 ) mGycm TECHNIQUE: Transaxial CT imaging of the brain was performed without administration of intravenous contrast material. Individualized dose optimization techniques were used for this CT. COMPARISON: Comparison is made with prior study March 20, 2022. FINDINGS: Normal soft tissue structures. Normal calvarium. Normal size ventricles and extra-axial spaces for the patient''s age. Normal white matter tracts of the cerebral hemispheres. Normal basal ganglia and thalami. Normal brainstem. Normal cerebellum. There is no intracranial hemorrhage. There are no findings of an acute ischemic infarction. Normal visualized paranasal sinuses. CT/Brain/Head without Contrast IMPRESSION: Normal unenhanced CT scan of the brain. Electronically Signed: Sly Kennedy MD at 12:20 EDT ,
--- NOTE | 2022-07-14 11:40 | EX.ED.DYSGE1 ---
HPI <ALISON Hunter - Last Filed: 07/14/22 14:05> History of Present Illness Chief Complaint: Dizziness Narrative Narrative: Patient is a 71-year-old female with history of cirrhosis of the liver, diabetes, acid reflux who presents to the emergency department with a feeling of dizziness, unsteadiness, nausea and vomiting. Patient drove to get her blood work done as she does twice a week to the [facility]. Patient states when she got home around 830, she felt that she was very unsteady, she felt that she was dizzy explaining as if she was spinning. She immediately got sweaty, had multiple episodes of nausea and vomiting. She did sit down, continued to be dizzy with head movement. She was also concerned because she had significant acid reflux last evening. She is here with her partner. She has had no complications with her liver surgery. All of her lab values have been well. She denies any specific headache, chest pain or shortness of breath. [facility] <ALISON Hunter - Last Filed: 07/14/22 14:05> [facility] Medical History (Updated 07/14/22 @ 13:12 by ALISON Hunter) Acute encephalopathy Anemia Anxiety Carpal tunnel syndrome Cirrhosis Cirrhosis of liver Depression Diabetes Elevated bilirubin GERD (gastroesophageal reflux disease) History of cirrhosis Hyperammonemia Home Medications pantoprazole 20 mg tablet,delayed release 40 mg PO BID gerd 03/21/14 [History Last Taken 05/28/22] carvedilol 3.125 mg tablet 3.125 mg PO BID bp 05/24/21 [History Last Taken 05/28/22] spironolactone 100 mg tablet 100 mg PO BID bp 05/24/21 [History Last Taken 05/28/22] ascorbic acid (vitamin C) 500 mg tablet (Vitamin C) 500 mg PO QHS vitamin 03/20/22 [History Last Taken 03/19/22] calcium 600 mg capsule 600 mg PO BID supplement 03/20/22 [History Last Taken 05/28/22] cholecalciferol (vitamin D3) 25 mcg (1,000 unit) capsule (Vitamin D3) 500 mcg PO BID supplement 03/20/22 [History Last Taken 05/28/22] furosemide 40 mg tablet 40 mg PO DAILY water pill 03/20/22 [History Last Taken 05/28/22] insulin aspart U-100 100 unit/mL (3 mL) subcutaneous pen (Novolog FlexPen U-100 Insulin aspart) 8 unit subcut TIDCM dm 03/20/22 [History Last Taken 05/28/22] insulin aspart U-100 100 unit/mL (3 mL) subcutaneous pen (Novolog FlexPen U-100 Insulin aspart) See Protocol subcut TIDCM dm 03/20/22 [History Last Taken 05/28/22] insulin glargine 100 unit/mL (3 mL) subcutaneous pen (Basaglar KwikPen U-100 Insulin) 40 unit subcut QHS dm 03/20/22 [History Last Taken 03/19/22] iron 40 mg capsule 45 mg PO QHS supplement 03/20/22 [History Last Taken 03/19/22] magnesium 250 mg tablet 250 mg PO QHS suplement 03/20/22 [History Last Taken 03/19/22] lactulose 20 gram/30 mL oral solution 20 g (30 mL) PO TID #3,000 mL 03/21/22 [Rx Last Taken 05/28/22] valacyclovir 1 gram tablet 1 mg PO DAILY PRN PRN blisters 05/28/22 [History Last Taken Unknown] rifaximin 550 mg tablet (Xifaxan) 550 mg PO BID MEMORY 05/30/22 [History Last Taken Unknown] cefdinir 300 mg capsule 300 mg PO BID #10 caps 05/31/22 [Rx Last Taken Unknown] meclizine 25 mg chewable tablet (Antivert) 25 mg PO TID #20 tabs 07/14/22 [Rx Last Taken Unknown] ondansetron 4 mg disintegrating tablet 4 mg PO Q8H PRN PRN Nausea #10 tabs 07/14/22 [Rx Last Taken Unknown] Allergy/AdvReac Type Severity Reaction Status Date / Time No Known Allergies Allergy Verified 07/14/22 10:46 Surgical History (Updated 07/14/22 @ 11:00 by Genevieve Mayes) H/O thyroidectomy H/O: hysterectomy History of cholecystectomy History of hip replacement Liver transplant recipient Social History household members: family Smoking Status: Never smoker ROS <ALISON Hunter - Last Filed: 07/14/22 14:05> ROS ED ROS Narrative Constitutional: Negative for fever, chills, weight loss, weakness Eyes: Negative for vision loss, vision change, double vision ENT: Negative for any sore throat, ear pain, congestion Cardiovascular: Negative for any chest pain, tightness, palpitations Respiratory: Negative for any cough, sputum production, hemoptysis, dyspnea, dyspnea on exertion, orthopnea Gastrointestinal: Negative for any abdominal pain, diarrhea, constipation, blood in stool, blood in vomit., Positive for nausea and vomiting : Negative for any urinary frequency, dysuria, retention, blood in urine Muscle skeletal: Negative for any muscle joint pain, stiffness, myalgias, arthralgias, neck pain, back pain Neurological: Negative for any headache, syncope, numbness or tingling. Positive for feeling of dizziness, room spinning like sensation Skin: Negative for any rashes, lumps, itching, abrasions, lacerations Psychiatric: Negative for any depression, anxiety, stress, suicidal ideation, homicidal ideation Hematologic: Negative for any easy bruising, excessive bruising, easy bleeding Allergies: Negative for any eczema, hives, rash EXAM <ALISON Hunter - Last Filed: 07/14/22 14:05> Physical Exam Narrative Exam Narrative: Vital signs reviewed. Patient appears to be in no respiratory distress. HEET: Head normocephalic atraumatic, TMs clear bilaterally. Posterior pharynx is clear, moist mucous membranes. Nares clear bilaterally. When performing EOMs, patient did have nystagmus worse when she looked to the left. When she looked forward, this stopped after 3 seconds. Neck: Supple with no lymphadenopathy or tenderness. No signs of meningismus, negative jolt sign. Cardiac: Regular rate and rhythm no murmurs gallops or rubs, equal peripheral pulses bilaterally. Respiratory: Lungs clear to auscultation bilaterally. No chest tenderness. Abdomen: Soft, nontender, nondistended. No abdominal bruit or pulsatile masses. No hepatosplenomegaly Extremities: No peripheral edema, no signs of gross trauma or deformity. Active full range of motion of all extremities. Neuro: Cranial nerves II through XII intact, no focal neurological deficits. Elvin-Hallpike maneuver was completed, patient had significant nausea with head movements. Patient also exhibited nystagmus horizontally worse when she looks to the left. Skin: Clean dry and intact with no rash, purpura, petechiae, vesicles or pustules. Backs/flank: No CVA tenderness, no midline spinal tenderness, no deformity. Psych: Normal mood and affect. No SI, HI or acute psychosis. Const Vital Signs: 07/14/22 10:43 07/14/22 11:00 07/14/22 13:00 Temperature 96.6 F L Temperature Source Temporal Pulse Rate 72 Respiratory Rate 16 Respiratory Effort Normal Non-Labored Respiratory Pattern Normal Blood Pressure 138/93 H 132/84 H Blood Pressure Mean 108 100 Pulse Ox 100 Oxygen Delivery Method Room Air Positive well nourished and well developed General Appearance ED: well developed <Dr. Dany Nelson DO - Last Filed: 07/14/22 15:57> Physical Exam Const Vital Signs: 07/14/22 10:43 07/14/22 11:00 07/14/22 13:00 Temperature 96.6 F L Temperature Source Temporal Pulse Rate 72 Respiratory Rate 16 Respiratory Effort Normal Non-Labored Respiratory Pattern Normal Blood Pressure 138/93 H 132/84 H Blood Pressure Mean 108 100 Pulse Ox 100 Oxygen Delivery Method Room Air MDM <ALISON Hunter - Last Filed: 07/14/22 14:05> [facility] Lab Data Labs: Laboratory Results - last 24 hr 07/14/22 07/14/22 11:00 11:00 WBC 6.9 RBC 3.78 L Hgb 11.9 L Hct 36.8 L MCV 97.4 MCH 31.5 MCHC 32.3 RDW Std Deviation 54.7 H RDW Coeff of Kwesi 15.4 H Plt Count 241 MPV 9.4 Immature Gran % (Auto) 0.700 Neut % (Auto) 69.8 Lymph % (Auto) 13.8 L [place] % (Auto) 12.0 H Eos % (Auto) 2.8 Baso % (Auto) 0.9 Absolute Neuts (auto) 4.8 Absolute Lymphs (auto) 0.95 Nucleated RBC % 0 Sodium 139 Potassium 4.6 Chloride 109 H Carbon Dioxide 24.0 Anion Gap 6 BUN 34 H Creatinine 0.94 Estim Creat Clear Calc 46.72 Est GFR (MDRD) Af Amer 76 Est GFR (MDRD) Non-Af 63 BUN/Creatinine Ratio 36.1 H Glucose 175 H Calcium 9.4 Total Bilirubin 0.40 Direct Bilirubin 0.16 AST 17 ALT 21 Alkaline Phosphatase 77 Troponin I High Sens 11 Total Protein 6.5 Albumin 3.2 Globulin 3.3 Lipase 73 Radiography Diagnostic Testing: Clinical Impression(s) from Imaging Studies Brain CT 07/14/22 11:27 IMPRESSION: Normal unenhanced CT scan of the brain. Electronically Signed: Sly Kennedy MD at 12:20 EDT , EKG Normal sinus rhythm: Attestation: I personally reviewed and interpreted this EKG as follows: Comments: Normal sinus rhythm, rate 65 bpm, NH 174 ms, QRS duration 58 ms, no acute ST elevation, no acute infarct noted. Differential Diagnosis Chest pain/SOB: ACS Differential Diagnosis: CVA Why less likely: No evidence of any weakness, no facial droop. Additional Tests and Interventions Diagnositc testing considered but not performed: MRI Treatment and Re-Evaluation :: All radiologic examinations were read, reviewed by the emergency department attending. From these reads, a plan of care will be put in place. Patient on initial arrival appear to be in no respiratory distress however was uncomfortable secondary to dizziness, patient's physical examination is consistent with benign positional peripheral vertigo. Patient's vital signs are stable, patient appears nontoxic. Patient received basic laboratory values as well as a CT scan of the brain. Secondary to the patient's history of acid reflux last evening, cardiac need to be ruled out. Patient's laboratory studies showed a consistent CBC, patient is slightly anemic however this is baseline. Patient's chemistries were unremarkable. Patient's troponin was negative. Patient CT scan of the brain showed no acute process. Patient at this time has no evidence to suspect any ACS, ND. Again patient's physical examination was consistent with vertigo, patient was given IV fluids, IV Zofran as well as by mouth meclizine. After 45 minutes of treatment, the patient felt much better. She will be ambulated around the department to ensure that she is stable. Patient again feels much better, patient was able to ambulate with a steady gait. She feels comfortable enough to go home. We did use shared decision making, offered admission however she feels comfortable for discharge. She was able to pass a p.o. challenge here. She will be given follow-up with her PCP, as well as ENT. She will take Antivert at home as well as Zofran. She is instructed to return for any worsening symptoms. I did speak with the patient's friend who is at bedside. All questions were answered, return precautions given. <Dr. Dany Nelson, DO - Last Filed: 07/14/22 15:57> [facility] Lab Data Attestation: I reviewed the patient's lab results. Lab results narrative: CBC with no leukocytosis, mild anemia, no thrombocytopenia BMP without evidence of significant electrolyte abnormalities, no anion gap, no acute kidney injury. LFTs show no evidence of hepatobiliary pathology. Lipase is wnl indicating no pancreatic inflammation. Troponin is negative, no evidence of myocardial ischemia Labs: Laboratory Results - last 24 hr 07/14/22 07/14/22 11:00 11:00 WBC 6.9 RBC 3.78 L Hgb 11.9 L Hct 36.8 L MCV 97.4 MCH 31.5 MCHC 32.3 RDW Std Deviation 54.7 H RDW Coeff of Kwesi 15.4 H Plt Count 241 MPV 9.4 Immature Gran % (Auto) 0.700 Neut % (Auto) 69.8 Lymph % (Auto) 13.8 L [place] % (Auto) 12.0 H Eos % (Auto) 2.8 Baso % (Auto) 0.9 Absolute Neuts (auto) 4.8 Absolute Lymphs (auto) 0.95 Nucleated RBC % 0 Sodium 139 Potassium 4.6 Chloride 109 H Carbon Dioxide 24.0 Anion Gap 6 BUN 34 H Creatinine 0.94 Estim Creat Clear Calc 46.72 Est GFR (MDRD) Af Amer 76 Est GFR (MDRD) Non-Af 63 BUN/Creatinine Ratio 36.1 H Glucose 175 H Calcium 9.4 Total Bilirubin 0.40 Direct Bilirubin 0.16 AST 17 ALT 21 Alkaline Phosphatase 77 Troponin I High Sens 11 Total Protein 6.5 Albumin 3.2 Globulin 3.3 Lipase 73 Radiography Diagnostic Testing: Clinical Impression(s) from Imaging Studies Brain CT 07/14/22 11:27 IMPRESSION: Normal unenhanced CT scan of the brain. Electronically Signed: Sly Kennedy MD at 12:20 EDT , Treatment and Re-Evaluation :: All radiologic examinations were read, reviewed by the emergency department attending. From these reads, a plan of care will be put in place. Patient on initial arrival appear to be in no respiratory distress however was uncomfortable secondary to dizziness, patient's physical examination is consistent with benign positional peripheral vertigo. Patient's vital signs are stable, patient appears nontoxic. Patient received basic laboratory values as well as a CT scan of the brain. Secondary to the patient's history of acid reflux last evening, cardiac need to be ruled out. Patient's laboratory studies showed a consistent CBC, patient is slightly anemic however this is baseline. Patient's chemistries were unremarkable. Patient's troponin was negative. Patient CT scan of the brain showed no acute process. Patient at this time has no evidence to suspect any ACS, ND. Again patient's physical examination was consistent with vertigo, patient was given IV fluids, IV Zofran as well as by mouth meclizine. After 45 minutes of treatment, the patient felt much better. She will be ambulated around the department to ensure that she is stable. Patient again feels much better, patient was able to ambulate with a steady gait. She feels comfortable enough to go home. We did use shared decision making, offered admission however she feels comfortable for discharge. She was able to pass a p.o. challenge here. She will be given follow-up with her PCP, as well as ENT. She will take Antivert at home as well as Zofran. She is instructed to return for any worsening symptoms. I did speak with the patient's friend who is at bedside. All questions were answered, return precautions given. ED attending note: I evaluated the patient in conjunction with the [facility]. I agree with her statements and above findings. I personally saw the patient performed chart review, physical exam, reviewed labs, imaging (if obtained), and formulated a treatment and management plan. Exam: Nursing triage notes reviewed, Vital signs reviewed Constitutional: please see mdm HENT: MMM Eyes: Pupils equal round and reactive to light, Extraocular muscles intact Neck: No stridor, no JVD, full neck ROM Lungs: Clear to auscultation, No wheezing or rales. No increased work of breathing, no conversational dyspnea, no accessory muscle use, no nasal flaring. No respiratory distress noted Heart: Regular rate and rhythm, No murmurs, No rubs and No gallops, 2+ distal pulses (radial, femoral, posterior tibial) in all extremities Abdomen: Soft, there is no tenderness, rigidity, rebound or guarding, no obvious peritoneal signs, no palpable pulsatile abdominal masses, no auscultated abdominal bruit : No CVAT Extremities: No edema Neuro: Alert and oriented x3, neuro exam at baseline, cranial nerves II through XII are intact. No pain with extraocular muscle movement. There is negative test of skew. Normal speech. 5 of 5 strength in upper and lower extremities in flexion extension. Intact sensation to light touch in upper and lower extremity dermatomes. No truncal or extremity ataxia. No dysdiadochokinesia. Normal gait. 2+ reflexes. No meningeal signs. Negative Babinski. NIH of 0 Skin: No rash or lesions noted MDM/plan: Chief Complaint: Dizziness External records reviewed: Last ED visit for lactic acidosis in May 2022 CT scan head from February 2023 shows no acute abnormality I considered the following differential diagnosis: Posterior circulation CVA, peripheral vertigo, anemia, arrhythmia, myocardial ischemia, dehydration, electrolyte abnormalities We performed a broad lab and imaging work-up to further elucidate the etiology patient complaints. EKG without evidence of arrhythmia. Labs images showed no evidence of acute life-threatening abnormalities. Specifically no evidence of intracranial bleeding or mass. Patient had no ataxia, signs of posterior circulation CVA. NIH was 0. The patient's presentation is most consistent with peripheral vertigo. Patient ambulated here in the emergency department out difficulty after meclizine and fluids and Zofran. He was able to tolerate p.o. she is appropriate for discharge home. Factors affecting care: History of diabetes, hypertension, hyperlipidemia Social determinants of health: Elderly History obtained from others: The patient's sister Shared decision making: I will have a discussion with the patient and or visitors regarding risk/benefits of further testing or admission. They will be made aware of of the risk/benefits inherent in this decision they will be given the opportunity to voice understanding. Consults: None Discharge Plan Triage Chief Complaint: Dizziness Other Complaint: General Illness ED Midlevel Provider: Sukumar Santiago ED Provider: Dany Nelson Dx/Rx/DC Orders Clinical Impression: Vertigo Instructions: Vertigo Inner Ear Problems, Vertigo Medicine Tx, ED Vertigo, Unspecified Prescriptions: New meclizine [Antivert] 25 mg tablet,chewable 25 mg PO TID Qty: 20 0RF ondansetron 4 mg tablet,disintegrating 4 mg PO Q8H PRN PRN (Reason: Nausea) Qty: 10 0RF No Action pantoprazole 20 MG tablet 40 mg PO BID spironolactone 100 mg Tablet 100 mg PO BID carvedilol 3.125 mg Tablet 3.125 mg PO BID furosemide 40 mg tablet 40 mg PO DAILY calcium 600 mg Capsule 600 mg PO BID ascorbic acid (vitamin C) [Vitamin C] 500 mg Tablet 500 mg PO QHS magnesium 250 mg Tablet 250 mg PO QHS iron 40 mg Capsule 45 mg PO QHS cholecalciferol (vitamin D3) [Vitamin D3] 25 mcg (1,000 unit) Capsule 500 mcg PO BID insulin aspart U-100 [Novolog FlexPen U-100 Insulin] 100 unit/mL (3 mL) insulin pen 8 unit SUBCUT TIDCM insulin aspart U-100 [Novolog FlexPen U-100 Insulin] 100 unit/mL (3 mL) insulin pen See Protocol SUBCUT TIDCM Protocol: 4. Sliding Scale Insulin High-Med Dosing Condition: 150-199 mg/dl = 2 units Condition: 200-259 mg/dl = 4 units Condition: 260-324 mg/dl = 6 units Condition: 325-374 mg/dl = 8 units Condition: 375-409 mg/dl = 10 units Condition: 410-449 mg/dl = 11 units Condition: Greater than 449 call physician Protocol Text: - Use for Total Daily Dose of Insulin 56-80 units - Patient who are insulin resistant or septic HIGH MEDIUM DOSING ALGORITHM insulin glargine [Basaglar KwikPen U-100 Insulin] 100 unit/mL (3 mL) insulin pen 40 unit SUBCUT QHS lactulose 20 gram/30 mL solution 20 g PO TID Qty: 3000 2RF Rx Instructions: Titrate to 2-3 soft stools daily valacyclovir 1 gram tablet 1 mg PO DAILY PRN PRN (Reason: blisters) Xifaxan 550 mg Tablet 550 mg PO BID cefdinir 300 mg capsule 300 mg PO BID Qty: 10 0RF Primary Care Provider: Michael Lawson Referrals: Michael Lawson MD [Primary Care Provider] - Activity Restrictions/Additional Instructions: Please stay hydrated, use Antivert, Zofran as needed. Disposition Disposition: Home, Self Care Discharge Date/Time: 07/14/22 13:52
[2022-07-14 11:41] LABS: Absolute Lymphocyte Count 0.95 X10^3/uL (0.83-4.51); Absolute Neutrophil Count 4.8 X10^3/uL (2.0-7.7); Basophil# 0.06 X10^3/uL; Basophil% 0.9 % (0-1); Eosinophil# 0.19 X10^3/uL; Eosinophils% 2.8 % (0-5); Hematocrit 36.8 % (37-47); Hemoglobin 11.9 g/dL (12.0-15.0); Lymphocyte # 0.95 X10^3/ul (0.83-4.51); Lymphocyte % 13.8 % (19-41); Mean Corp Hgb Conc 32.3 g/dL (32-36); Mean Corpuscular Hgb 31.5 pg (27.0-32.0); Mean Corpuscular Volume 97.4 fL (81-99); Mean Platelet Vol. 9.4 fl (6.2-12.0); Monocyte# 0.82 X10^3/uL; NRBC Flagged by Analyzer 0 % (0-5); Neutrophil # 4.79 X10^3/uL (2.7-7.7); Neutrophil % 69.8 % (47-70); Platelet Count 241 K/mm3 (150-450); RBC Distribution Width CV 15.4 % (11.6-14.6); RBC Distribution Width SD 54.7 fl (35.1-43.9); Red Blood Count 3.78 M/mm3 (4.2-5.4); White Blood Count 6.9 K/mm3 (4.4-11.0)
[2022-07-14] MEDS: Ondansetron 4 MG/2 ML Vial IV (11:43)
[2022-07-14] MEDS: 0.9% Normal Saline 1,000 ML 1000 ML IV (11:43)
[2022-07-14] MEDS: Meclizine HCl 25 MG Tablet PO (11:43)
[2022-07-14 12:03] LABS: AST(SGOT) 17 U/L (15-37); Alanine Aminotransfer ALT/SGPT 21 U/L (13-56); Albumin, Serum 3.2 g/dL (3.2-5.0); Alkaline Phosphatase 77 U/L (45-117); Anion Gap 6 (5-15); BUN 34 mg/dL (7-18); BUN/Creat Ratio 36.1 RATIO (10-20); Bilirubin, Direct 0.16 mg/dL (0.00-0.30); Calcium,Total 9.4 mg/dL (8.5-10.1); Chloride 109 mmol/L (98-107); Creatinine, Serum 0.94 mg/dL (0.55-1.02); EST Glomerular Filtration Rate 63 mL/min (>60); Est Glom Filt Rate - Afr Amer 76 mL/min (>60); Estimated Creatinine Clearance 46.72 ml/min; Globulin 3.3 g/dL (2.2-4.2); Glucose 175 mg/dL (74-106); Lipase 73 U/L (73-393); Potassium 4.6 mmol/L (3.5-5.1); Protein, Total 6.5 g/dL (6.4-8.2); Sodium Level 139 mmol/L (136-145); Troponin-I HS 11 pg/mL (3.0-54.0)
[2022-07-14 13:00] VITALS: BP 132/84
== END 2022-07-14 13:52 | disposition home or self-care (01) ==
PROVIDERS: Nurse Practitioner; Emergency Provider Emergency Medicine; PCP Family Medicine; Visit Provider Emergency Medicine
DX: R42 Dizziness and giddiness (principal); E11.9 Type 2 diabetes mellitus without complications; Z79.4 Long term (current) use of insulin; E78.5 Hyperlipidemia, unspecified; I10 Essential (primary) hypertension; Z79.899 Other long term (current) drug therapy
CPT/HCPCS: 70450; 80048; 80076; 83690; 84484; 85025; 93005; 96361; 96374; 99284; J7030; A4216; J2405

== ENCOUNTER → 2022-08-19 | Outpatient (CLI) | payer MEDICARE, BC, SELFPAY | END | disposition home or self-care (01) | PROVIDERS: PCP Family Medicine; Referring Provider Family Medicine; Visit Provider Family Medicine | DX: J06.9 Acute upper respiratory infection, unspecified (principal); Z94.4 Liver transplant status | CPT/HCPCS: 87633; C9803 ==